=== PATIENT | female | born 1980 | race Caucasian/White ===

== ENCOUNTER 2020-03-10 04:57 | Inpatient (IN) ==
[2020-03-10] MEDS ORDERED: OXYTOCIN 30 UNITS/500 ML BAG IV PRN ×2 (06:02→07:59)
--- NOTE | 2020-03-10 06:09 | History & Physical Report ---
Date of Service March 10, 2020 Assessment & Plan (1) Rupture of membranes with meconium present: admit, expectant management. pitocin aumentation as needed. fetus category one. (2) Diet controlled gestational diabetes mellitus (GDM), antepartum: check bs q 3 hrs. History of Present Illness Chief Complaint: rom Primary Care Provider: NO PCP Patient is a 39yowf with iup at 40 5/7 weeks who presents to labor and delivery noting gush of fluid and continued leaking since a little after three. Notes the fluid is discolored. Notes some pressure but not uncomfortable. +fm. complicated by diet controlled gdm labs--A+/ab-/ri/rprnr/hepb-/hiv-/gc/ct-/declined genetics/declined cf/sma/ gbs neg/ 28 week gtt was 204. Allergies Allergy/AdvReac Type Severity Reaction Status Date / Time No Known Allergies Allergy Verified 03/05/20 14:37 Home Medications Home Medications Medication Instructions Recorded Confirmed Type [id number] oil 1 tab/day PO DAILY 07/25/19 03/10/20 History docusate sodium 50 mg capsule 50 mg PO DAILY PRN 02/27/20 03/10/20 History Patient History Medical History Encounter for anatomic survey Evaluate anatomy not seen on prior sonogram Varicella Surgical History No pertinent past surgical history Family History Father Heart disease Diabetes Hypertension Hypercholesteremia Social History Preferred Language: Upper Sorbian Communication Ability: Effective Route Process Administrator Required: No Beliefs That Will Affect Care: None marital status: marital status details: Jennifer Lorenz (39) [phone] Current Living Situation: Spouse Current Living Situation Comment: apartment with current occupational status: 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[employer] Other Information That Helps Us Care for You: No Feels Safe at Home: Yes Safety Concerns: Feels Safe At This Time Smoking Status: Never smoker Hx Alcohol Use: No Hx Substance Use: No 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 History noncontributory Review of Systems All systems reviewed & are unremarkable except as noted in HPI & below Physical Exam Constitutional: WD/WN, vitals as above Gastrointestinal (Abdomen): soft, gravid, nt Psychiatric: A+Ox3, euthymic affect Genitourinary: grossly ruptured with green meconium stained fluid cx--/-2 toco--q5min efm--135 with mod variability, accels to 150s, no decels Results & Data Vital Signs (Past 12 Hours) Vital Signs Temp Pulse Resp BP 03/10/20 05:54 93 H 146/97 H 03/10/20 05:29 36.7 C 18 03/10/20 05:14 106 H 134/94 Code Status & VTE Plan VTE Prophylaxis Plan VTE Prophylaxis will be ordered: No Coding Level of Care Code None Diagnoses Rupture of membranes with meconium present O77.0 Diet controlled gestational diabetes mellitus (GDM), antepartum O24.410
[2020-03-10 06:19] LABS: Hematocrit (blood only) 39.1 % (37-47); Hemoglobin 12.7 g/dL (12.0-16.0); Mean Corpuscular Hemoglobin 28.2 pg (25-34); Mean Corpuscular Volume 86.7 fL (80-100); Mean Platelet Volume 12.2 fL (7.4-10.4); Nucleated RBC # (auto) 0.39 K/uL (0-0); Platelet Count 277 K/uL (130-400); RDW Coefficient of Variation 15.6 % (11.5-14.5); RDW Standard Deviation 48.8 fL (36.4-46.3); Red Blood Count 4.51 M/uL (4.2-5.4); White Blood Count 7.67 K/uL (4.8-10.8)
[2020-03-10 06:24] LABS: Mean Corpuscular Hgb Conc 32.5 g/dL (32-36)
[2020-03-10 06:35] LABS: Albumin Level 2.3 gm/dl (3.4-5.0); Calcium 8.7 mg/dl (8.5-10.1); Creatinine Clr Calc Pharmacy 78.8 ml/min; Est GFR (African American) 64.9; Potassium 4.1 mmol/L (3.5-5.1)
[2020-03-10 06:38] LABS: Albumin Globulin Ratio 0.5 (0.9-2); Bilirubin,Total 0.5 mg/dl (0.2-1); Globulin 4.2 gm/dl (2.5-4.0); Total Protein 6.5 gm/dl (6.4-8.2)
[2020-03-10] MEDS: LACTATED RINGER'S 1,000 ML IV PRN ×2 (06:45→13:38)
[2020-03-10] MEDS ORDERED: MAG SULFATE 4GM BOLUS FROM BAG IV ONE (06:47)
--- NOTE | 2020-03-10 06:47 | Labor Progress Brief Note ---
Date of Service March 10, 2020 Subjective patient notes contractions still describing pressure. no [place]/vision garvin ges/n/v/increased edema/ruq pain Assessment & Plan (1) Preeclampsia: lfts and pond tender elevated and patient's pressure slightly elevated. This is most likely consistent with preeclampsia. discussed the situation with the patient who expresses understanding. plan mag prophylaxis. Physical Exam Constitutional: WD/WN, vitals as above Cardiovascular: Extremities: + edema (trace); no calf tenderness Gastrointestinal (Abdomen): no ruq pain Neurologic: DTRs +1/2, no clonus Psychiatric: A+Ox3, euthymic affect Results & Data Vital Signs (Past 12 Hours) Vital Signs Temp Pulse Resp BP 03/10/20 05:54 93 H 146/97 H 03/10/20 05:29 36.7 C 18 03/10/20 05:14 106 H 134/94 Coding Level of Care Code None Diagnoses Preeclampsia O14.90
[2020-03-10] MEDS: MAGNESIUM SULFATE / WTR 40 GM/1,000 ML BAG IV SCH (07:11)
--- NOTE | 2020-03-10 08:16 | Labor Progress Brief Note ---
Date of Service March 10, 2020 Subjective Notes some contractions more painful. Did well with mag bolus. Assessment & Plan (1) Preeclampsia: continue mag, stable (2) Rupture of membranes with meconium present: Recommend she start pitocin for augmentation, they are agreeable. fetus categroy one. Physical Exam Constitutional: WD/WN, vitals as above Psychiatric: A+Ox3, euthymic affect Genitourinary: cx--deferred toco--q2-4min efm--140s with mod variability, small accels, no decels copious mec stained fluid. Results & Data Vital Signs (Past 12 Hours) Vital Signs Temp Pulse Resp BP 03/10/20 08:10 101 H 134/91 03/10/20 07:55 98 H 135/94 03/10/20 07:41 100 H 135/93 03/10/20 07:17 100 H 135/96 03/10/20 05:54 93 H 146/97 H 03/10/20 05:29 36.7 C 18 03/10/20 05:14 106 H 134/94 Coding Level of Care Code None Diagnoses Preeclampsia O14.90 Rupture of membranes with meconium present O77.0
[2020-03-10] MEDS ORDERED: ePHEDrine sulfate 50 MG/ML AMP ONE (12:49)
[2020-03-10] MEDS ORDERED: BUPIVACAINE 0.25% 30 ML VIAL ONE (12:49)
[2020-03-10] MEDS ORDERED: fentaNYL 2MCG/ML ROPIV 1.25MG/ML 100 ML BAG EPI ONE (12:50)
[2020-03-10] MEDS ORDERED: fentaNYL citrate 100 MCG/2 ML VIAL ONE (12:50)
--- NOTE | 2020-03-10 13:00 | Anesthesiology Consultation ---
Date of Service March 10, 2020 Assessment & Plan (1) Encounter for pre-operative examination: Chart Review Chart Review: Acceptable Risk for Labor Epidural History Height/Weight Height: 5 ft 8 in Weight: 103.419 kg Allergies Allergy/AdvReac Type Severity Reaction Status Date / Time No Known Allergies Allergy Verified 03/05/20 14:37 Medications Home Medications Medication Instructions Recorded Confirmed Last Taken [id number] oil 1 tab/day PO DAILY 07/25/19 03/10/20 03/09/20 08:00 docusate sodium 50 mg capsule 50 mg PO DAILY PRN 02/27/20 03/10/20 Unknown Active Medications Generic Name Dose Route Start Last Admin Trade Name Freq PRN Reason Stop Dose Admin Lactated Ringer's 1,000 mls @ 125 mls/hr 03/10/20 06:02 03/10/20 12:44 Lr IV 03/12/20 06:01 999 mls/hr .Q8H PRN Infusion L&D Protocol Protocol Magnesium Sulfate 40 gm in 1,000 mls @ 50 mls/hr 03/10/20 07:00 03/10/20 07:40 Magnesium Sulfate / Wtr IV 04/09/20 06:59 50 mls/hr .Q20H SRINIVAS Infusion Oxytocin 30 units in 500 mls @ 10 mls/hr 03/10/20 07:59 03/10/20 12:09 Pitocin IV 03/12/20 07:58 0.6 units/hr .Q24H PRN 10 mls/hr Labor Induction/Augmentation Titration Protocol 0.6 UNITS/HR Past Medical History Medical History (Updated 03/10/20 @ 13:00 by Ziyad Lynn MD) Diet controlled gestational diabetes mellitus (GDM), antepartum Encounter for anatomic survey Evaluate anatomy not seen on prior sonogram Varicella Past Family History Family History Father Heart disease Diabetes Hypertension Hypercholesteremia Past Surgical History Surgical History No pertinent past surgical history Social History Smoking Status: Never smoker Hx Alcohol Use: No Hx Substance Use: No Physical Exam Vital Signs Last Vital Signs Temp 36.3 C L 03/10/20 09:20 Pulse 102 H 03/10/20 12:44 Resp 20 03/10/20 09:20 BP 133/85 03/10/20 12:44 Testing Laboratory Results 03/10/20 06:08 03/10/20 06:08 03/10/20 03/10/20 03/10/20 12:26 09:35 06:33 POC Glucose 73 77 72
[2020-03-10] MEDS ORDERED: ONDANSETRON INJ 2 MG/ML 2 ML VIAL IV PRN (13:36)
[2020-03-10] MEDS ORDERED: NALOXONE HCL 0.4 MG/1 ML VIAL/CARP IV PRN (13:36)
[2020-03-10] MEDS ORDERED: NALOXONE HCL 1 MG in SODIUM CHLORIDE 0.9% 1000ML 1,000 ML IV PRN (13:36)
[2020-03-10] MEDS ORDERED: fentaNYL 2MCG/ML ROPIV 1.25MG/ML 100 ML BAG EPI PRN (13:36)
[2020-03-10] MEDS ORDERED: ePHEDrine sulfate 50 MG/ML AMP IV PRN (13:36)
--- NOTE | 2020-03-10 14:40 | Labor Progress Brief Note ---
Date of Service March 10, 2020 Subjective comfortable after epidural Assessment & Plan (1) Preeclampsia: continue mag, no s/s or worsening disease, pressures good (2) Rupture of membranes with meconium present: continue pitocin. fetus category 2 with variables but reassuring. Physical Exam Constitutional: WD/WN, vitals as above Psychiatric: A+Ox3, euthymic affect Genitourinary: cx--4/90/-2 copious green/brown mec toco--q2-5, pit at 5, had to turn off for a bit after epidural efm--145 with mod variability, small variables with some contractions. Results & Data Vital Signs (Past 12 Hours) Vital Signs Temp Pulse Resp BP Pulse Ox 03/10/20 14:35 114 H 97 03/10/20 14:33 111 H 133/85 03/10/20 14:30 111 H 94 03/10/20 14:26 107 H 94 03/10/20 14:25 109 H 94 03/10/20 14:21 110 H 94 03/10/20 14:20 114 H 98 03/10/20 14:17 112 H 141/68 H 03/10/20 14:15 112 H 95 03/10/20 14:10 110 H 97 03/10/20 14:05 117 H 99 03/10/20 14:01 118 H 135/62 03/10/20 14:00 119 H 100 03/10/20 13:56 116 H 130/59 L 03/10/20 13:55 117 H 100 03/10/20 13:51 122 H 141/67 H 03/10/20 13:50 124 H 100 03/10/20 13:45 126 H 100 03/10/20 13:44 126 H 136/68 03/10/20 13:41 126 H 133/66 03/10/20 13:40 123 H 98 03/10/20 13:38 116 H 133/66 03/10/20 13:35 93 H 88/54 L 96 03/10/20 13:32 112 H 84/52 L 03/10/20 13:30 96 H 96 03/10/20 13:29 96 H 83/44 L 03/10/20 13:25 109 H 98 03/10/20 13:20 100 H 100 03/10/20 13:15 103 H 100 03/10/20 13:10 103 H 97 03/10/20 13:06 18 03/10/20 12:44 102 H 133/85 03/10/20 11:45 95 H 155/97 H 03/10/20 10:44 93 H 142/93 H 03/10/20 09:46 100 H 137/93 03/10/20 09:20 36.3 C L 20 03/10/20 08:40 104 H 140/94 03/10/20 08:26 98 H 133/89 03/10/20 08:10 101 H 134/91 03/10/20 07:55 98 H 135/94 03/10/20 07:41 100 H 135/93 03/10/20 07:20 20 03/10/20 07:17 36.9 C 100 H 20 135/96 03/10/20 05:54 93 H 146/97 H 03/10/20 05:29 36.7 C 18 03/10/20 05:14 106 H 134/94 Coding Level of Care Code None Diagnoses Preeclampsia O14.90 Rupture of membranes with meconium present O77.0
--- NOTE | 2020-03-10 18:38 | Labor Progress Brief Note ---
Date of Service March 10, 2020 Subjective comfortable, tired Assessment & Plan (1) Preeclampsia: stable. Will check a mag level. (2) Rupture of membranes with meconium present: iupc placed, continue pitocin. ctx not adequate. fetus category two. will continue to monitor baby closely. Bloody show noted. Physical Exam Constitutional: WD/WN, vitals as above Psychiatric: A+Ox3, euthymic affect Genitourinary: cx--5/90/-[address] toco--3-5, pit at 16 efm--140s with min to mod variability, early variable with some contractions, had a few late decels that resolved with position change. Results & Data Vital Signs (Past 12 Hours) Vital Signs Temp Pulse Resp BP Pulse Ox 03/10/20 18:32 95 H 139/86 03/10/20 18:30 98 H 97 03/10/20 18:25 99 H 93 03/10/20 18:20 98 H 96 03/10/20 18:17 103 H 147/89 H 03/10/20 18:15 103 H 96 03/10/20 18:10 100 H 95 03/10/20 18:07 103 H 93 03/10/20 18:05 102 H 95 03/10/20 18:02 99 H 142/89 H 03/10/20 18:00 101 H 95 03/10/20 17:55 101 H 94 03/10/20 17:52 97 H 93 03/10/20 17:50 105 H 132/86 94 03/10/20 17:47 102 H 93 03/10/20 17:45 100 H 95 03/10/20 17:40 104 H 97 03/10/20 17:39 101 H 93 03/10/20 17:35 103 H 95 03/10/20 17:32 101 H 133/76 03/10/20 17:30 100 H 94 03/10/20 17:29 103 H 93 03/10/20 17:25 105 H 95 03/10/20 17:21 104 H 93 03/10/20 17:20 104 H 94 03/10/20 17:15 97 H 95 03/10/20 17:10 105 H 96 03/10/20 17:05 107 H 97 03/10/20 17:02 102 H 135/82 03/10/20 17:00 103 H 93 0607 16:55 109 H 94 0620 16:51 108 H 93 06 16:50 105 H 96 03/10/20 16:48 106 H 138/84 03/10/20 16:47 109 H 20 127/84 03/10/20 16:45 107 H 94 0607 16:40 108 H 95 06 16:35 107 H 97 03/10/20 16:32 106 H 20 139/87 03/10/20 16:30 105 H 97 03/10/20 16:25 109 H 98 06 16:20 109 H 98 03/10/20 16:17 106 H 20 141/88 H 03/10/20 16:15 109 H 98 03/10/20 16:10 107 H 97 03/10/20 16:05 102 H 97 03/10/20 16:04 105 H 94 03/10/20 16:02 36.6 C 106 H 18 141/89 H 03/10/20 16:00 102 H 97 03/10/20 15:55 104 H 99 07 15:51 18 03/10/20 15:50 104 H 97 07 15:47 107 H 138/90 03/10/20 15:45 110 H 97 03/10/20 15:40 109 H 97 03/10/20 15:35 108 H 96 03/10/20 15:32 105 H 150/88 H 03/10/20 15:31 108 H 94 07 15:30 108 H 98 03/10/20 15:25 117 H 96 0607 15:20 112 H 97 03/10/20 15:17 109 H 149/80 H 07 15:15 107 H 95 0607 15:10 105 H 95 0607 15:08 109 H 94 07 15:05 91 H 97 06/07 15:02 109 H 136/75 03/10/20 15:00 104 H 93 06/07 14:56 18 06 14:55 106 H 95 06/07 14:50 111 H 95 03/10/20 14:49 110 H 94 03/10/20 14:47 111 H 137/81 03/10/20 14:45 110 H 96 03/10/20 14:43 18 03/10/20 14:42 109 H 94 03/10/20 14:40 114 H 96 03/10/20 14:35 114 H 97 03/10/20 14:33 111 H 133/85 03/10/20 14:30 111 H 18 94 03/10/20 14:26 107 H 94 03/10/20 14:25 109 H 94 03/10/20 14:21 110 H 94 03/10/20 14:20 114 H 98 03/10/20 14:17 112 H 141/68 H 03/10/20 14:15 112 H 95 03/10/20 14:14 20 03/10/20 14:10 110 H 97 03/10/20 14:05 117 H 99 03/10/20 14:01 118 H 135/62 03/10/20 14:00 119 H 100 03/10/20 13:59 20 03/10/20 13:56 116 H 130/59 L 03/10/20 13:55 117 H 100 03/10/20 13:51 122 H 141/67 H 03/10/20 13:50 124 H 100 03/10/20 13:45 126 H 100 03/10/20 13:44 126 H 20 136/68 03/10/20 13:41 126 H 133/66 03/10/20 13:40 123 H 98 03/10/20 13:38 116 H 133/66 03/10/20 13:37 36.6 C 20 03/10/20 13:35 93 H 88/54 L 96 03/10/20 13:32 112 H 84/52 L 03/10/20 13:30 96 H 96 03/10/20 13:29 96 H 83/44 L 03/10/20 13:25 109 H 98 03/10/20 13:20 100 H 100 03/10/20 13:15 103 H 100 03/10/20 13:10 103 H 97 03/10/20 13:06 18 03/10/20 12:44 102 H 133/85 03/10/20 11:45 95 H 155/97 H 03/10/20 11:19 36.6 C 20 06/07/20 10:44 93 H 142/93 H 03/10/20 09:46 100 H 137/93 03/10/20 09:20 36.3 C L 20 03/10/20 08:40 104 H 140/94 03/10/20 08:26 98 H 133/89 03/10/20 08:10 101 H 134/91 03/10/20 07:55 98 H 135/94 03/10/20 07:41 100 H 135/93 03/10/20 07:20 20 03/10/20 07:17 36.9 C 100 H 20 135/96 Coding Level of Care Code None Diagnoses Preeclampsia O14.90 Rupture of membranes with meconium present O77.0
--- NOTE | 2020-03-10 18:39 | Delivery Summary ---
Vaginal Delivery Summary Date of Service March 10, 2020 Vaginal Delivery Summary .vagdels
[2020-03-10] MEDS ORDERED: Nursing to Pharmacy Communication ONE (19:55)
--- NOTE | 2020-03-10 22:18 | Labor Progress Brief Note ---
Date of Service March 10, 2020 Subjective comfortable Assessment & Plan (1) Preeclampsia: stable . Mag level appropriate. (2) Rupture of membranes with meconium present: Intermittently adequate contractions, but making change. Intermittent late but responsive to position change. decreased variability likely secondary to Mag effect. Will continue to watch closely. Physical Exam Constitutional: WD/WN, vitals as above Psychiatric: A+Ox3, euthymic affect Genitourinary: cx--8/100/-1 toco--q3-4 min, pit at 22 efm--145 with min to mod variability, occasional variable with contraction, occasional late that resolves with repositioning. Results & Data Vital Signs (Past 12 Hours) Vital Signs Temp Pulse Resp BP Pulse Ox 03/10/20 22:10 97 H 98 03/10/20 22:05 92 H 97 03/10/20 22:02 95 H 121/70 03/10/20 22:00 99 H 95 03/10/20 21:55 97 H 96 03/10/20 21:50 99 H 97 03/10/20 21:47 95 H 129/76 03/10/20 21:45 97 H 97 03/10/20 21:40 96 H 98 03/10/20 21:35 97 H 97 03/10/20 21:32 99 H 128/74 03/10/20 21:30 96 H 18 95 03/10/20 21:25 98 H 97 03/10/20 21:20 97 H 96 03/10/20 21:17 96 H 130/72 03/10/20 21:15 95 H 96 03/10/20 21:10 94 H 97 03/10/20 21:05 94 H 97 03/10/20 21:03 90 121/67 03/10/20 21:00 102 H 18 96 03/10/20 20:55 96 H 98 03/10/20 20:50 101 H 100 03/10/20 20:47 94 H 144/89 H 03/10/20 20:45 100 H 97 03/10/20 20:40 102 H 98 03/10/20 20:35 103 H 95 03/10/20 20:32 103 H 136/81 03/10/20 20:31 101 H 93 03/10/20 20:30 100 H 94 03/10/20 20:25 99 H 98 03/10/20 20:20 36.6 C 99 H 18 95 03/10/20 20:17 99 H 137/82 03/10/20 20:15 102 H 96 03/10/20 20:10 101 H 98 03/10/20 20:05 101 H 97 03/10/20 20:02 100 H 140/85 03/10/20 20:00 36.6 C 100 H 18 98 03/10/20 19:55 102 H 98 03/10/20 19:50 101 H 98 03/10/20 19:47 97 H 144/87 H 03/10/20 19:45 103 H 98 03/10/20 19:40 103 H 97 03/10/20 19:35 98 H 96 03/10/20 19:33 97 H 135/82 03/10/20 19:30 102 H 97 03/10/20 19:25 95 H 97 03/10/20 19:22 18 03/10/20 19:20 102 H 97 03/10/20 19:18 100 H 144/87 H 03/10/20 19:15 105 H 99 03/10/20 19:10 105 H 98 03/10/20 19:05 103 H 99 03/10/20 19:02 101 H 150/96 H 03/10/20 19:00 104 H 99 03/10/20 18:55 36.5 C 104 H 20 99 03/10/20 18:50 104 H 100 03/10/20 18:47 100 H 142/91 H 03/10/20 18:45 101 H 98 03/10/20 18:40 100 H 97 03/10/20 18:35 103 H 96 03/10/20 18:32 95 H 139/86 03/10/20 18:30 98 H 20 97 03/10/20 18:25 99 H 93 03/10/20 18:20 98 H 96 03/10/20 18:17 103 H 147/89 H 03/10/20 18:15 103 H 96 03/10/20 18:10 100 H 95 03/10/20 18:07 103 H 93 03/10/20 18:05 102 H 95 03/10/20 18:02 99 H 142/89 H 03/10/20 18:00 101 H 95 03/10/20 17:55 101 H 94 0607 17:52 97 H 93 06 17:50 105 H 132/86 94 03/10/20 17:47 102 H 93 06 17:45 100 H 95 06 17:40 104 H 97 06 17:39 101 H 93 03/10/20 17:35 103 H 95 0620 17:32 36.7 C 101 H 18 133/76 03/10/20 17:30 100 H 16 94 03/10/20 17:29 103 H 93 03/10/20 17:25 105 H 95 06 17:21 104 H 93 06 17:20 104 H 94 06 17:15 97 H 95 03/10/20 17:10 105 H 96 03/10/20 17:05 107 H 97 03/10/20 17:02 102 H 135/82 03/10/20 17:00 103 H 93 03/10/20 16:55 109 H 94 03/10/20 16:51 108 H 93 03/10/20 16:50 105 H 96 03/10/20 16:48 106 H 138/84 03/10/20 16:47 109 H 20 127/84 03/10/20 16:45 107 H 94 03/10/20 16:40 108 H 95 03/10/20 16:35 107 H 97 03/10/20 16:32 106 H 20 139/87 03/10/20 16:30 105 H 20 97 03/10/20 16:25 109 H 98 07 16:20 109 H 98 03/10/20 16:17 106 H 20 141/88 H 07 16:15 109 H 98 03/10/20 16:10 107 H 97 0607 16:05 102 H 97 07 16:04 105 H 94 0607 16:02 36.6 C 106 H 18 141/89 H 07 16:00 102 H 97 03/10/20 15:55 104 H 99 0720 15:51 18 060720 15:50 104 H 97 0607 15:47 107 H 138/90 03/10/20 15:45 110 H 97 03/10/20 15:40 109 H 97 03/10/20 15:35 108 H 96 03/10/20 15:32 36.9 C 105 H 20 150/88 H 03/10/20 15:31 108 H 94 03/10/20 15:30 108 H 98 03/10/20 15:25 117 H 96 03/10/20 15:20 112 H 97 03/10/20 15:17 109 H 149/80 H 03/10/20 15:15 107 H 95 03/10/20 15:10 105 H 95 03/10/20 15:08 109 H 94 03/10/20 15:05 91 H 97 03/10/20 15:02 109 H 136/75 03/10/20 15:00 104 H 93 03/10/20 14:56 18 03/10/20 14:55 106 H 95 03/10/20 14:50 111 H 95 03/10/20 14:49 110 H 94 03/10/20 14:47 111 H 137/81 03/10/20 14:45 110 H 96 03/10/20 14:43 18 03/10/20 14:42 109 H 94 03/10/20 14:40 114 H 96 03/10/20 14:35 114 H 97 03/10/20 14:33 111 H 133/85 03/10/20 14:30 111 H 18 94 03/10/20 14:26 107 H 94 03/10/20 14:25 109 H 94 03/10/20 14:21 110 H 94 03/10/20 14:20 114 H 98 03/10/20 14:17 112 H 141/68 H 03/10/20 14:15 112 H 95 03/10/20 14:14 20 03/10/20 14:10 110 H 97 03/10/20 14:05 117 H 99 03/10/20 14:01 118 H 135/62 03/10/20 14:00 119 H 100 03/10/20 13:59 20 03/10/20 13:56 116 H 130/59 L 03/10/20 13:55 117 H 100 03/10/20 13:51 122 H 141/67 H 03/10/20 13:50 124 H 100 03/10/20 13:45 126 H 100 03/10/20 13:44 126 H 20 136/68 06/07/20 13:41 126 H 133/66 03/10/20 13:40 123 H 98 03/10/20 13:38 116 H 133/66 03/10/20 13:37 36.6 C 20 03/10/20 13:35 93 H 88/54 L 96 03/10/20 13:32 112 H 84/52 L 03/10/20 13:30 96 H 96 03/10/20 13:29 96 H 83/44 L 03/10/20 13:25 109 H 98 03/10/20 13:20 100 H 100 03/10/20 13:15 103 H 100 03/10/20 13:10 103 H 97 03/10/20 13:06 18 03/10/20 12:44 102 H 133/85 03/10/20 11:45 95 H 155/97 H 03/10/20 11:19 36.6 C 20 03/10/20 10:44 93 H 142/93 H Coding Level of Care Code None Diagnoses Preeclampsia O14.90 Rupture of membranes with meconium present O77.0
--- NOTE | 2020-03-10 22:41 | Labor Progress Brief Note ---
Date of Service March 10, 2020 Subjective comfortable Assessment & Plan (1) Rupture of membranes with meconium present: pit now off and oxygen on. Continue position changing. If cannot get improvement in fht, plan to move toward c/s. Explained the situation to the patient and her and explained my thinking. They express understanding. Physical Exam Constitutional: WD/WN, vitals as above Psychiatric: A+Ox3, euthymic affect Genitourinary: toco--q4-5min efm--140 with min variability, more persistent lates Results & Data Vital Signs (Past 12 Hours) Vital Signs Temp Pulse Resp BP Pulse Ox 03/10/20 22:35 91 H 100 03/10/20 22:32 93 H 134/78 03/10/20 22:30 92 H 96 03/10/20 22:25 95 H 98 03/10/20 22:20 95 H 97 03/10/20 22:17 99 H 123/71 03/10/20 22:15 94 H 98 03/10/20 22:10 97 H 98 03/10/20 22:05 92 H 97 03/10/20 22:02 95 H 121/70 03/10/20 22:00 36.5 C 99 H 18 95 03/10/20 21:55 97 H 96 03/10/20 21:50 99 H 97 03/10/20 21:47 95 H 129/76 03/10/20 21:45 97 H 97 03/10/20 21:40 96 H 98 03/10/20 21:35 97 H 97 03/10/20 21:32 99 H 128/74 03/10/20 21:30 96 H 18 95 03/10/20 21:25 98 H 97 03/10/20 21:20 97 H 96 03/10/20 21:17 96 H 130/72 03/10/20 21:15 95 H 96 03/10/20 21:10 94 H 97 03/10/20 21:05 94 H 97 03/10/20 21:03 90 121/67 03/10/20 21:00 102 H 18 96 03/10/20 20:55 96 H 98 03/10/20 20:50 101 H 100 03/10/20 20:47 94 H 144/89 H 03/10/20 20:45 100 H 97 03/10/20 20:40 102 H 98 03/10/20 20:35 103 H 95 03/10/20 20:32 103 H 136/81 03/10/20 20:31 101 H 93 03/10/20 20:30 100 H 94 03/10/20 20:25 99 H 98 03/10/20 20:20 36.6 C 99 H 18 95 03/10/20 20:17 99 H 137/82 03/10/20 20:15 102 H 96 03/10/20 20:10 101 H 98 03/10/20 20:05 101 H 97 03/10/20 20:02 100 H 140/85 03/10/20 20:00 36.6 C 100 H 18 98 03/10/20 19:55 102 H 98 03/10/20 19:50 101 H 98 03/10/20 19:47 97 H 144/87 H 03/10/20 19:45 103 H 98 03/10/20 19:40 103 H 97 03/10/20 19:35 98 H 96 03/10/20 19:33 97 H 135/82 03/10/20 19:30 102 H 97 03/10/20 19:25 95 H 97 03/10/20 19:22 18 03/10/20 19:20 102 H 97 03/10/20 19:18 100 H 144/87 H 03/10/20 19:15 105 H 99 03/10/20 19:10 105 H 98 03/10/20 19:05 103 H 99 03/10/20 19:02 101 H 150/96 H 03/10/20 19:00 104 H 99 03/10/20 18:55 36.5 C 104 H 20 99 03/10/20 18:50 104 H 100 03/10/20 18:47 100 H 142/91 H 03/10/20 18:45 101 H 98 03/10/20 18:40 100 H 97 03/10/20 18:35 103 H 96 03/10/20 18:32 95 H 139/86 03/10/20 18:30 98 H 20 97 03/10/20 18:25 99 H 93 03/10/20 18:20 98 H 96 03/10/20 18:17 103 H 147/89 H 03/10/20 18:15 103 H 96 03/10/20 18:10 100 H 95 06 18:07 103 H 93 03/10/20 18:05 102 H 95 03/10/20 18:02 99 H 142/89 H 03/10/20 18:00 101 H 95 06 17:55 101 H 94 03/10/20 17:52 97 H 93 03/10/20 17:50 105 H 132/86 94 03/10/20 17:47 102 H 93 03/10/20 17:45 100 H 95 03/10/20 17:40 104 H 97 03/10/20 17:39 101 H 93 03/10/20 17:35 103 H 95 03/10/20 17:32 36.7 C 101 H 18 133/76 03/10/20 17:30 100 H 16 94 03/10/20 17:29 103 H 93 03/10/20 17:25 105 H 95 03/10/20 17:21 104 H 93 03/10/20 17:20 104 H 94 03/10/20 17:15 97 H 95 03/10/20 17:10 105 H 96 03/10/20 17:05 107 H 97 03/10/20 17:02 102 H 135/82 03/10/20 17:00 103 H 93 03/10/20 16:55 109 H 94 03/10/20 16:51 108 H 93 03/10/20 16:50 105 H 96 03/10/20 16:48 106 H 138/84 03/10/20 16:47 109 H 20 127/84 03/10/20 16:45 107 H 94 03/10/20 16:40 108 H 95 03/10/20 16:35 107 H 97 03/10/20 16:32 106 H 20 139/87 03/10/20 16:30 105 H 20 97 03/10/20 16:25 109 H 98 03/10/20 16:20 109 H 98 03/10/20 16:17 106 H 20 141/88 H 03/10/20 16:15 109 H 98 03/10/20 16:10 107 H 97 03/10/20 16:05 102 H 97 03/10/20 16:04 105 H 94 03/10/20 16:02 36.6 C 106 H 18 141/89 H 03/10/20 16:00 102 H 97 03/10/20 15:55 104 H 99 03/10/20 15:51 18 03/10/20 15:50 104 H 97 03/10/20 15:47 107 H 138/90 03/10/20 15:45 110 H 97 03/10/20 15:40 109 H 97 03/10/20 15:35 108 H 96 03/10/20 15:32 36.9 C 105 H 20 150/88 H 03/10/20 15:31 108 H 94 03/10/20 15:30 108 H 98 03/10/20 15:25 117 H 96 03/10/20 15:20 112 H 97 03/10/20 15:17 109 H 149/80 H 03/10/20 15:15 107 H 95 03/10/20 15:10 105 H 95 03/10/20 15:08 109 H 94 03/10/20 15:05 91 H 97 03/10/20 15:02 109 H 136/75 03/10/20 15:00 104 H 93 03/10/20 14:56 18 03/10/20 14:55 106 H 95 03/10/20 14:50 111 H 95 03/10/20 14:49 110 H 94 03/10/20 14:47 111 H 137/81 03/10/20 14:45 110 H 96 03/10/20 14:43 18 03/10/20 14:42 109 H 94 03/10/20 14:40 114 H 96 03/10/20 14:35 114 H 97 03/10/20 14:33 111 H 133/85 03/10/20 14:30 111 H 18 94 03/10/20 14:26 107 H 94 03/10/20 14:25 109 H 94 03/10/20 14:21 110 H 94 03/10/20 14:20 114 H 98 03/10/20 14:17 112 H 141/68 H 03/10/20 14:15 112 H 95 03/10/20 14:14 20 03/10/20 14:10 110 H 97 03/10/20 14:05 117 H 99 03/10/20 14:01 118 H 135/62 03/10/20 14:00 119 H 100 03/10/20 13:59 20 03/10/20 13:56 116 H 130/59 L 03/10/20 13:55 117 H 100 03/10/20 13:51 122 H 141/67 H 03/10/20 13:50 124 H 100 03/10/20 13:45 126 H 100 03/10/20 13:44 126 H 20 136/68 03/10/20 13:41 126 H 133/66 03/10/20 13:40 123 H 98 03/10/20 13:38 116 H 133/66 03/10/20 13:37 36.6 C 20 03/10/20 13:35 93 H 88/54 L 96 03/10/20 13:32 112 H 84/52 L 03/10/20 13:30 96 H 96 03/10/20 13:29 96 H 83/44 L 03/10/20 13:25 109 H 98 03/10/20 13:20 100 H 100 03/10/20 13:15 103 H 100 03/10/20 13:10 103 H 97 03/10/20 13:06 18 03/10/20 12:44 102 H 133/85 03/10/20 11:45 95 H 155/97 H 03/10/20 11:19 36.6 C 20 03/10/20 10:44 93 H 142/93 H Coding Level of Care Code None Diagnoses Rupture of membranes with meconium present O77.0
--- NOTE | 2020-03-10 23:24 | Labor Progress Brief Note ---
Date of Service March 10, 2020 Subjective comfortable Assessment & Plan (1) Rupture of membranes with meconium present: Strip improved with pit off. Unfortunately ctx have spaced and not as powerful. Will need to increase pit again to get desired effect of contractions. I don't think the baby is going to tolerate this and I have recommended proceeding with c/s at this time. However, could try to restart pit at 0 and slowly increase and see how it goes. When patient vomited, there was a decel after this x 2. I am suspicious that with pushing , this is what the baby will do and will not tolerate pushing. As a primip, don't know how long she may push. station has not progressed beyond -1 station. They are considering now. Alot of the minimal variability likely is secondary to mag effect. Physical Exam Constitutional: WD/WN, vitals as above Psychiatric: A+Ox3, euthymic affect Genitourinary: cx--unchanged toco--q5-6min, pit off efm--145 wtih min variability, no accels, variables with some contractions, lates have resolved. Results & Data Vital Signs (Past 12 Hours) Vital Signs Temp Pulse Resp BP Pulse Ox 03/10/20 23:17 96 H 143/85 H 03/10/20 23:15 97 H 100 03/10/20 23:10 96 H 100 03/10/20 23:05 95 H 100 03/10/20 23:03 95 H 141/81 H 03/10/20 23:00 97 H 18 99 03/10/20 22:55 85 100 03/10/20 22:50 87 100 03/10/20 22:47 93 H 116/68 03/10/20 22:45 94 H 100 03/10/20 22:40 90 100 03/10/20 22:35 91 H 100 03/10/20 22:32 93 H 134/78 03/10/20 22:30 92 H 18 96 03/10/20 22:25 95 H 98 03/10/20 22:20 95 H 97 03/10/20 22:17 99 H 123/71 03/10/20 22:15 94 H 98 03/10/20 22:10 97 H 98 03/10/20 22:05 92 H 97 03/10/20 22:02 95 H 121/70 03/10/20 22:00 36.5 C 99 H 18 95 03/10/20 21:55 97 H 96 03/10/20 21:50 99 H 97 03/10/20 21:47 95 H 129/76 03/10/20 21:45 97 H 97 03/10/20 21:40 96 H 98 03/10/20 21:35 97 H 97 03/10/20 21:32 99 H 128/74 03/10/20 21:30 96 H 18 95 03/10/20 21:25 98 H 97 03/10/20 21:20 97 H 96 03/10/20 21:17 96 H 130/72 03/10/20 21:15 95 H 96 03/10/20 21:10 94 H 97 03/10/20 21:05 94 H 97 03/10/20 21:03 90 121/67 03/10/20 21:00 102 H 18 96 03/10/20 20:55 96 H 98 03/10/20 20:50 101 H 100 03/10/20 20:47 94 H 144/89 H 03/10/20 20:45 100 H 97 03/10/20 20:40 102 H 98 03/10/20 20:35 103 H 95 03/10/20 20:32 103 H 136/81 03/10/20 20:31 101 H 93 03/10/20 20:30 100 H 94 03/10/20 20:25 99 H 98 03/10/20 20:20 36.6 C 99 H 18 95 03/10/20 20:17 99 H 137/82 03/10/20 20:15 102 H 96 03/10/20 20:10 101 H 98 03/10/20 20:05 101 H 97 03/10/20 20:02 100 H 140/85 03/10/20 20:00 36.6 C 100 H 18 98 03/10/20 19:55 102 H 98 03/10/20 19:50 101 H 98 03/10/20 19:47 97 H 144/87 H 03/10/20 19:45 103 H 98 03/10/20 19:40 103 H 97 03/10/20 19:35 98 H 96 03/10/20 19:33 97 H 135/82 03/10/20 19:30 102 H 97 03/10/20 19:25 95 H 97 03/10/20 19:22 18 03/10/20 19:20 102 H 97 03/10/20 19:18 100 H 144/87 H 03/10/20 19:15 105 H 99 03/10/20 19:10 105 H 98 03/10/20 19:05 103 H 99 03/10/20 19:02 101 H 150/96 H 03/10/20 19:00 104 H 99 03/10/20 18:55 36.5 C 104 H 20 99 03/10/20 18:50 104 H 100 03/10/20 18:47 100 H 142/91 H 03/10/20 18:45 101 H 98 03/10/20 18:40 100 H 97 03/10/20 18:35 103 H 96 03/10/20 18:32 95 H 139/86 03/10/20 18:30 98 H 20 97 03/10/20 18:25 99 H 93 03/10/20 18:20 98 H 96 03/10/20 18:17 103 H 147/89 H 03/10/20 18:15 103 H 96 03/10/20 18:10 100 H 95 03/10/20 18:07 103 H 93 03/10/20 18:05 102 H 95 03/10/20 18:02 99 H 142/89 H 03/10/20 18:00 101 H 95 03/10/20 17:55 101 H 94 03/10/20 17:52 97 H 93 03/10/20 17:50 105 H 132/86 94 03/10/20 17:47 102 H 93 03/10/20 17:45 100 H 95 03/10/20 17:40 104 H 97 03/10/20 17:39 101 H 93 03/10/20 17:35 103 H 95 03/10/20 17:32 36.7 C 101 H 18 133/76 03/10/20 17:30 100 H 16 94 03/10/20 17:29 103 H 93 03/10/20 17:25 105 H 95 03/10/20 17:21 104 H 93 03/10/20 17:20 104 H 94 03/10/20 17:15 97 H 95 03/10/20 17:10 105 H 96 03/10/20 17:05 107 H 97 03/10/20 17:02 102 H 135/82 03/10/20 17:00 103 H 93 0607 16:55 109 H 94 03/10/20 16:51 108 H 93 03/10/20 16:50 105 H 96 03/10/20 16:48 106 H 138/84 03/10/20 16:47 109 H 20 127/84 03/10/20 16:45 107 H 94 03/10/20 16:40 108 H 95 03/10/20 16:35 107 H 97 03/10/20 16:32 106 H 20 139/87 03/10/20 16:30 105 H 20 97 03/10/20 16:25 109 H 98 03/10/20 16:20 109 H 98 03/10/20 16:17 106 H 20 141/88 H 03/10/20 16:15 109 H 98 03/10/20 16:10 107 H 97 03/10/20 16:05 102 H 97 03/10/20 16:04 105 H 94 03/10/20 16:02 36.6 C 106 H 18 141/89 H 03/10/20 16:00 102 H 97 03/10/20 15:55 104 H 99 03/10/20 15:51 18 03/10/20 15:50 104 H 97 03/10/20 15:47 107 H 138/90 03/10/20 15:45 110 H 97 03/10/20 15:40 109 H 97 03/10/20 15:35 108 H 96 03/10/20 15:32 36.9 C 105 H 20 150/88 H 03/10/20 15:31 108 H 94 03/10/20 15:30 108 H 98 03/10/20 15:25 117 H 96 03/10/20 15:20 112 H 97 03/10/20 15:17 109 H 149/80 H 03/10/20 15:15 107 H 95 03/10/20 15:10 105 H 95 03/10/20 15:08 109 H 94 03/10/20 15:05 91 H 97 03/10/20 15:02 109 H 136/75 03/10/20 15:00 104 H 93 0607 14:56 18 03/10/20 14:55 106 H 95 06/07/20 14:50 111 H 95 03/10/20 14:49 110 H 94 03/10/20 14:47 111 H 137/81 03/10/20 14:45 110 H 96 03/10/20 14:43 18 03/10/20 14:42 109 H 94 03/10/20 14:40 114 H 96 03/10/20 14:35 114 H 97 03/10/20 14:33 111 H 133/85 03/10/20 14:30 111 H 18 94 03/10/20 14:26 107 H 94 03/10/20 14:25 109 H 94 03/10/20 14:21 110 H 94 03/10/20 14:20 114 H 98 03/10/20 14:17 112 H 141/68 H 03/10/20 14:15 112 H 95 03/10/20 14:14 20 03/10/20 14:10 110 H 97 03/10/20 14:05 117 H 99 03/10/20 14:01 118 H 135/62 03/10/20 14:00 119 H 100 03/10/20 13:59 20 03/10/20 13:56 116 H 130/59 L 03/10/20 13:55 117 H 100 03/10/20 13:51 122 H 141/67 H 03/10/20 13:50 124 H 100 03/10/20 13:45 126 H 100 03/10/20 13:44 126 H 20 136/68 03/10/20 13:41 126 H 133/66 03/10/20 13:40 123 H 98 03/10/20 13:38 116 H 133/66 03/10/20 13:37 36.6 C 20 03/10/20 13:35 93 H 88/54 L 96 03/10/20 13:32 112 H 84/52 L 03/10/20 13:30 96 H 96 03/10/20 13:29 96 H 83/44 L 03/10/20 13:25 109 H 98 03/10/20 13:20 100 H 100 03/10/20 13:15 103 H 100 03/10/20 13:10 103 H 97 03/10/20 13:06 18 03/10/20 12:44 102 H 133/85 03/10/20 11:45 95 H 155/97 H Coding Level of Care Code None Diagnoses Rupture of membranes with meconium present O77.0
[2020-03-10] MEDS ORDERED: miSOPROStoL 200 MCG TAB ONE (23:42)
[2020-03-10] MEDS ORDERED: CARBOPROST TROMETHAMINE 250 MCG/ML AMPUL ONE (23:42)
--- NOTE | 2020-03-10 23:43 | Communication Note ---
Date of Service: March 10, 2020 After discussion , they have agreed to proceed wt c/s. Consent form reviewed and signed.
[2020-03-11] MEDS ORDERED: CEFAZOLIN 3000MG 65 ML IV ONE
[2020-03-11] MEDS ORDERED: LIDOCAINE/EPINEPHRINE 2% 1:200,000 20 ML SDV ONE
[2020-03-11] MEDS ORDERED: CITRIC ACID/SODIUM CITRATE 15 ML UDC PO SCH
[2020-03-11] MEDS ORDERED: OXYTOCIN 10 UNITS/ML VIAL ONE ×3 (00:54→01:17)
[2020-03-11] MEDS ORDERED: ONDANSETRON INJ 2 MG/ML 2 ML VIAL ONE (00:54)
[2020-03-11] MEDS ORDERED: ePHEDrine sulfate 50 MG/ML AMP ONE (00:54)
[2020-03-11] MEDS ORDERED: PHENYLEPHRINE 100MCG/ML 5ML SYR ONE (00:54)
[2020-03-11] MEDS ORDERED: MoRPHine SULFATE PF 1 MG/ML 10 ML AMP/VIAL ONE (00:55)
[2020-03-11] MEDS ORDERED: CARBOPROST TROMETHAMINE 250 MCG/ML AMPUL IM ONE (00:55)
--- NOTE | 2020-03-11 01:19 | Operative Report ---
[facility] Post Operative Report Pre & Post Diagnosis Operation Date: 03/10/20 23:50 Pre-Op Diagnosis: 1. at 40.6 weeks 2. Thick meconium fluid 3. Non reassuring heart tones Post-Op Diagnosis: 1. Same as preop 2. Left peritubal cyst I identified the patient and participated in the time-out.: Yes Procedure Operation Date: 03/10/20 23:50 Actual Procedures p Primary Lower Transverse Section in LD Drainage of left peritubal cyst - Nasra Hernandez MD, FACOG Surgeon Nasra Hernandez MD, FACOG Energy Economist Amarilis Munoz RN Estimated Blood Loss 600 Findings Consistent with Post-Op Diagnosis Specimens placenta Description of Procedure The patient was taken to the operating room where she was identified verbally a nd by yumiko. She was transferred to the operating table. she was then placed in the supine position with a leftward tilt. A Rosales catheter was in place. The epidural was dosed. The patient was prepped and draped in a normal standard fashion. The anesthetic was tested and found to be adequate. A time- out was held, identifying correct patient, procedure, positioning and preoperative antibiotics. There were no concerns. A Pfannenstiel skin incision was made with a knife and taken down to the underlying layer of fascia with the knife and Bovie electocautery. Bleeding was attended to with Bovie cautery. The fascia was incised in the midline with the knife and taken out laterally with scissors. the superior edge of the fascial incision was grasped, elevated and the underlying layer of rectus muscle was taken off bluntly and with scissors. In a similar fashion, the inferior edge of the fascial incision was grasped, elevated and the underlying layer of rectus muscle was taken off bluntly and with scissors. The muscles were bluntly in the midline. The peritoneum was entered bluntly. The incision was then stretched. The bladder blade was placed. The vesicouterine peritoneum was identified, entered with scissors and taken out laterally with scissors. The bladder flap was created digitally A hysterotomy incision was scored with a knife and the incision was stretched cephalad and caudad with the silo operator's fingers. The operators hand was placed into the incision and the head was delivered atraumtically. There was a nuchal cord times two. The nose and mouth were bulb suctioned. the rest of the infant was then delivered without difficulty. There was also a body cord. The nose and mouth were again bulb suctioned. The cord was clamped and cut and the was then handed off to the awaiting relocation specialist for drying and attention. Cord blood and segment were obtained. The placenta was manually extracted. the uterus was exteriorized and cleared of all clot and debris with moistened laparotomy sponges. The hysterotomy incision was repaired in two layers, the first in a running locked layer, the second in an imbricating layer. Hemostasis was noted to be good. Posterior cul-de-sac was irrigated and cleared of all clot and debris. A 2cm peritubal cyst was noted on the left and was ruptured with cautery and drained. The hysterotomy incision was again inspected and found to be hemostatic. The uterus was reinteriorized. Hysterotomy incision was again inspected and found to be hemostatic. Rectus muscles were reapproximated with several interrupted stitches of 0 Vicryl. The fascia was then reapproximated with 0 Vicryl starting at the edges and meeting in the midline. The subcuticular tissues were copiously irrigated and bleeding was attended to with cautery. The subcuticular fat was reapproximated with 2-0 plain gut suture. The skin was then closed with 4-0 Vicryl in a subcuticular fashion. All sponge, lap and needle counts were correct x 2. The patient was taken to the recovery room in stable condition. I attest to the content of the Intraoperative Record and any orders documented therein. Any exceptions are noted below.
--- NOTE | 2020-03-11 01:21 | Anesthesia Procedure Note ---
Date of Service March 11, 2020 Anesthesia Post Epidural Note Vital Signs Vital Signs: Temp Pulse Resp BP Pulse Ox 36.8 C 103 H 18 109/63 100 03/11/20 00:00 03/11/20 01:16 03/11/20 00:05 03/11/20 01:12 03/11/20 01:16 Pain Intensity Abdomen: Pain Intensity: 1 Notes Mental Status: alert / awake / arousable Patient Amnestic to Procedure: No Nausea / Vomiting: adequately controlled Pain: adequately controlled Airway Patency, RR, SpO2: stable & adequate BP & HR: stable & adequate Hydration State: stable & adequate Neuraxial Anesthesia: was administered and sensory block is resolving Anesthetic Complications: no major complications apparent and Pt Satisfied with anesthetic care Epidural: Removed without complications and With tip intact
[2020-03-11] MEDS: MAGNESIUM SULFATE / WTR 40 GM/1,000 ML BAG IV SCH (01:28)
[2020-03-11] MEDS ORDERED: SUPERCREAM 0.870% 15 GM JAR EXT PRN (01:36)
[2020-03-11] MEDS ORDERED: LACTATED RINGER'S 1,000 ML IV SCH (01:36)
[2020-03-11] MEDS ORDERED: DIPHTHERIA/TETANUS/PERTUSSIS 0.5 ML SYR/VIAL IM ONE (01:36)
[2020-03-11] MEDS ORDERED: SENNA 8.6 MG TAB PO PRN (01:36)
[2020-03-11] MEDS ORDERED: MAGNESIUM HYDROXIDE SUSP 30 ML UDC PO PRN (01:36)
[2020-03-11] MEDS ORDERED: BENZOCAINE 20% AER SPR 82.5 GM CAN EXT PRN (01:36)
[2020-03-11] MEDS ORDERED: DiphenhydrAMINE HCL 50 MG/ML VIAL IV PRN ×2 (01:36→02:38)
[2020-03-11] MEDS ORDERED: KETOROLAC 30 MG/ML VIAL IV PRN ×2 (01:36→02:38)
[2020-03-11] MEDS ORDERED: HYDROCORTISONE ACETATE 25 MG SUPP PR PRN (01:36)
[2020-03-11] MEDS ORDERED: OXYTOCIN 20 UNITS in LACTATED RINGER'S 1,000 ML IV SCH (01:45)
[2020-03-11] MEDS ORDERED: MAGNESIUM SULFATE / WTR 40 GM/1,000 ML BAG IV SCH (01:45)
--- NOTE | 2020-03-11 01:49 | Anesthesiology Progress Note ---
Date of Service March 11, 2020 Anesthesia Post Procedure Vital Signs Vital Signs: Temp Pulse Resp BP Pulse Ox 03/11/20 01:46 111 H 97 03/11/20 01:41 110 H 106/57 L 97 03/11/20 01:36 109 H 98 03/11/20 01:31 108 H 123/55 L 97 03/11/20 01:26 104 H 96 03/11/20 01:24 104 H 94 03/11/20 01:21 104 H 112/64 100 03/11/20 01:16 103 H 100 03/11/20 01:12 102 H 109/63 03/11/20 01:11 102 H 100 03/11/20 00:05 98 H 18 99 03/11/20 00:02 99 H 122/81 03/11/20 00:00 36.8 C 101 H 18 97 03/10/20 23:55 95 H 96 03/10/20 23:50 90 99 03/10/20 23:47 95 H 133/78 03/10/20 23:45 96 H 97 03/10/20 23:40 98 H 98 03/10/20 23:35 96 H 100 03/10/20 23:32 100 H 147/86 H 03/10/20 23:30 98 H 18 100 03/10/20 23:25 98 H 99 03/10/20 23:20 88 100 03/10/20 23:17 96 H 143/85 H 03/10/20 23:15 97 H 100 03/10/20 23:10 96 H 100 03/10/20 23:05 95 H 100 03/10/20 23:03 95 H 141/81 H 03/10/20 23:00 97 H 18 99 03/10/20 22:55 85 100 03/10/20 22:50 87 100 03/10/20 22:47 93 H 116/68 03/10/20 22:45 94 H 100 03/10/20 22:40 90 100 03/10/20 22:35 91 H 100 03/10/20 22:32 93 H 134/78 03/10/20 22:30 92 H 18 96 03/10/20 22:25 95 H 98 03/10/20 22:20 95 H 97 03/10/20 22:17 99 H 123/71 03/10/20 22:15 94 H 98 06/07/20 22:10 97 H 98 03/10/20 22:05 92 H 97 03/10/20 22:02 95 H 121/70 03/10/20 22:00 36.5 C 99 H 18 95 03/10/20 21:55 97 H 96 03/10/20 21:50 99 H 97 03/10/20 21:47 95 H 129/76 03/10/20 21:45 97 H 97 03/10/20 21:40 96 H 98 03/10/20 21:35 97 H 97 03/10/20 21:32 99 H 128/74 03/10/20 21:30 96 H 18 95 03/10/20 21:25 98 H 97 03/10/20 21:20 97 H 96 03/10/20 21:17 96 H 130/72 03/10/20 21:15 95 H 96 03/10/20 21:10 94 H 97 03/10/20 21:05 94 H 97 03/10/20 21:03 90 121/67 03/10/20 21:00 102 H 18 96 03/10/20 20:55 96 H 98 03/10/20 20:50 101 H 100 03/10/20 20:47 94 H 144/89 H 03/10/20 20:45 100 H 97 03/10/20 20:40 102 H 98 03/10/20 20:35 103 H 95 03/10/20 20:32 103 H 136/81 03/10/20 20:31 101 H 93 03/10/20 20:30 100 H 94 03/10/20 20:25 99 H 98 03/10/20 20:20 36.6 C 99 H 18 95 03/10/20 20:17 99 H 137/82 03/10/20 20:15 102 H 96 03/10/20 20:10 101 H 98 03/10/20 20:05 101 H 97 03/10/20 20:02 100 H 140/85 03/10/20 20:00 36.6 C 100 H 18 98 03/10/20 19:55 102 H 98 03/10/20 19:50 101 H 98 03/10/20 19:47 97 H 144/87 H 03/10/20 19:45 103 H 98 03/10/20 19:40 103 H 97 06/07/20 19:35 98 H 96 03/10/20 19:33 97 H 135/82 03/10/20 19:30 102 H 97 03/10/20 19:25 95 H 97 03/10/20 19:22 18 03/10/20 19:20 102 H 97 03/10/20 19:18 100 H 144/87 H 03/10/20 19:15 105 H 99 03/10/20 19:10 105 H 98 03/10/20 19:05 103 H 99 03/10/20 19:02 101 H 150/96 H 03/10/20 19:00 104 H 99 03/10/20 18:55 36.5 C 104 H 20 99 03/10/20 18:50 104 H 100 03/10/20 18:47 100 H 142/91 H 03/10/20 18:45 101 H 98 03/10/20 18:40 100 H 97 03/10/20 18:35 103 H 96 03/10/20 18:32 95 H 139/86 03/10/20 18:30 98 H 20 97 03/10/20 18:25 99 H 93 03/10/20 18:20 98 H 96 03/10/20 18:17 103 H 147/89 H 03/10/20 18:15 103 H 96 03/10/20 18:10 100 H 95 03/10/20 18:07 103 H 93 03/10/20 18:05 102 H 95 03/10/20 18:02 99 H 142/89 H 03/10/20 18:00 101 H 95 03/10/20 17:55 101 H 94 03/10/20 17:52 97 H 93 03/10/20 17:50 105 H 132/86 94 03/10/20 17:47 102 H 93 03/10/20 17:45 100 H 95 03/10/20 17:40 104 H 97 03/10/20 17:39 101 H 93 03/10/20 17:35 103 H 95 03/10/20 17:32 36.7 C 101 H 18 133/76 03/10/20 17:30 100 H 16 94 03/10/20 17:29 103 H 93 03/10/20 17:25 105 H 95 03/10/20 17:21 104 H 93 06 17:20 104 H 94 06 17:15 97 H 95 03/10/20 17:10 105 H 96 06 17:05 107 H 97 03/10/20 17:02 102 H 135/82 03/10/20 17:00 103 H 93 03/10/20 16:55 109 H 94 03/10/20 16:51 108 H 93 03/10/20 16:50 105 H 96 03/10/20 16:48 106 H 138/84 03/10/20 16:47 109 H 20 127/84 03/10/20 16:45 107 H 94 03/10/20 16:40 108 H 95 03/10/20 16:35 107 H 97 03/10/20 16:32 106 H 20 139/87 03/10/20 16:30 105 H 20 97 03/10/20 16:25 109 H 98 03/10/20 16:20 109 H 98 03/10/20 16:17 106 H 20 141/88 H 03/10/20 16:15 109 H 98 03/10/20 16:10 107 H 97 03/10/20 16:05 102 H 97 03/10/20 16:04 105 H 94 03/10/20 16:02 36.6 C 106 H 18 141/89 H 03/10/20 16:00 102 H 97 03/10/20 15:55 104 H 99 03/10/20 15:51 18 03/10/20 15:50 104 H 97 03/10/20 15:47 107 H 138/90 03/10/20 15:45 110 H 97 03/10/20 15:40 109 H 97 03/10/20 15:35 108 H 96 03/10/20 15:32 36.9 C 105 H 20 150/88 H 03/10/20 15:31 108 H 94 03/10/20 15:30 108 H 98 03/10/20 15:25 117 H 96 03/10/20 15:20 112 H 97 03/10/20 15:17 109 H 149/80 H 03/10/20 15:15 107 H 95 03/10/20 15:10 105 H 95 06 15:08 109 H 94 03/10/20 15:05 91 H 97 03/10/20 15:02 109 H 136/75 03/10/20 15:00 104 H 93 03/10/20 14:56 18 03/10/20 14:55 106 H 95 03/10/20 14:50 111 H 95 03/10/20 14:49 110 H 94 03/10/20 14:47 111 H 137/81 03/10/20 14:45 110 H 96 03/10/20 14:43 18 03/10/20 14:42 109 H 94 03/10/20 14:40 114 H 96 03/10/20 14:35 114 H 97 03/10/20 14:33 111 H 133/85 03/10/20 14:30 111 H 18 94 03/10/20 14:26 107 H 94 03/10/20 14:25 109 H 94 03/10/20 14:21 110 H 94 03/10/20 14:20 114 H 98 03/10/20 14:17 112 H 141/68 H 03/10/20 14:15 112 H 95 03/10/20 14:14 20 03/10/20 14:10 110 H 97 03/10/20 14:05 117 H 99 03/10/20 14:01 118 H 135/62 03/10/20 14:00 119 H 100 03/10/20 13:59 20 03/10/20 13:56 116 H 130/59 L 03/10/20 13:55 117 H 100 03/10/20 13:51 122 H 141/67 H 03/10/20 13:50 124 H 100 03/10/20 13:45 126 H 100 03/10/20 13:44 126 H 20 136/68 03/10/20 13:41 126 H 133/66 03/10/20 13:40 123 H 98 03/10/20 13:38 116 H 133/66 03/10/20 13:37 36.6 C 20 03/10/20 13:35 93 H 88/54 L 96 03/10/20 13:32 112 H 84/52 L 03/10/20 13:30 96 H 96 03/10/20 13:29 96 H 83/44 L 03/10/20 13:25 109 H 98 03/10/20 13:20 100 H 100 03/10/20 13:15 103 H 100 03/10/20 13:10 103 H 97 03/10/20 13:06 18 03/10/20 12:44 102 H 133/85 03/10/20 11:45 95 H 155/97 H 03/10/20 11:19 36.6 C 20 03/10/20 10:44 93 H 142/93 H 03/10/20 09:46 100 H 137/93 03/10/20 09:20 36.3 C L 20 03/10/20 08:40 104 H 140/94 03/10/20 08:26 98 H 133/89 03/10/20 08:10 101 H 134/91 03/10/20 07:55 98 H 135/94 03/10/20 07:41 100 H 135/93 03/10/20 07:20 20 03/10/20 07:17 36.9 C 100 H 20 135/96 03/10/20 05:54 93 H 146/97 H 03/10/20 05:29 36.7 C 18 03/10/20 05:14 106 H 134/94 Pain Intensity Abdomen: Pain Intensity: 1 Transfer of Care Handoff Completed per policy Notes Mental Status: alert / awake / arousable and participated in evaluation Patient Amnestic to Procedure: Yes Nausea / Vomiting: adequately controlled Pain: adequately controlled Airway Patency, RR, SpO2: stable & adequate BP & HR: stable & adequate Hydration State: stable & adequate Neuraxial Anesthesia: was administered and sensory block is resolving Anesthetic Complications: no major complications apparent
[2020-03-11 02:05] LABS: Base Excess Cord Venous Blood -12.5 mEq/L (-7.7-1.9); Cord Venous Blood HCO3 18 mmol/L (18.4-26.8); Cord Venous Blood PCO2 58 mmHg (30.4-57.2); Cord Venous Blood PO2 20 mmHg (14.1-43.3); O2 Saturation Cord Venous Bld < 60.0 % (<68)
[2020-03-11] MEDS ORDERED: MoRPHine SULFATE 2 MG/ML CARP IV PRN (02:38)
[2020-03-11] MEDS ORDERED: ePHEDrine sulfate 50 MG/ML AMP IV PRN (02:38)
[2020-03-11] MEDS ORDERED: LACTATED RINGER'S 500 ML IV PRN (02:38)
[2020-03-11] MEDS ORDERED: NALOXONE HCL 0.08 MG in SYRINGE 1.8 ML IV PRN (02:38)
[2020-03-11] MEDS ORDERED: NALOXONE HCL 0.4 MG/1 ML VIAL/CARP IV PRN (02:38)
[2020-03-11] MEDS ORDERED: NALBUPHINE HCL INJ 10 MG/ML AMP IV PRN (02:38)
[2020-03-11] MEDS ORDERED: ONDANSETRON INJ 2 MG/ML 2 ML VIAL IV PRN ×2 (02:38→20:38)
[2020-03-11] MEDS ORDERED: MEPERIDINE HCL 25 MG/ML CARP/VIAL IV PRN (02:38)
[2020-03-11] MEDS ORDERED: HYDROmorphone INJ 0.5 MG/0.5 ML SYR IV PRN (02:38)
[2020-03-11] MEDS ORDERED: PROMETHAZINE HCL 25 MG in SODIUM CHLORIDE 0.9% 50 ML IV PRN ×2 (02:38→20:38)
[2020-03-11] MEDS ORDERED: MoRPHine SULFATE PF 1 MG/ML 10 ML AMP/VIAL INT SPINAL ONE (02:38)
[2020-03-11] MEDS ORDERED: METOCLOPRAMIDE HCL 20 MG in SODIUM CHLORIDE 0.9% 50 ML IV PRN (02:38)
[2020-03-11] MEDS ORDERED: NALOXONE HCL 1 MG in SODIUM CHLORIDE 0.9% 1000ML 1,000 ML IV PRN (02:38)
[2020-03-11] MEDS ORDERED: DC INTRASPINAL MORPHINE SCH (02:45)
[2020-03-11] MEDS ORDERED: NO NARCOTICS OR SEDATIVES SCH (02:45)
[2020-03-11] MEDS ORDERED: SODIUM CHLORIDE 0.9% 1000ML 1,000 ML IV SCH (02:45)
--- NOTE | 2020-03-11 07:20 | Obstetrical Progress Note ---
Date of Service March 11, 2020 Assessment & Plan (1) S/P section: Doing well Routine care. (2) Preeclampsia: check labs this am and mag level. PP mag for 12-24 hours. Day #:: 0 Subjective Ambulation: limited ambulation Voiding: joyce catheter in place Passing Gas:: No Diet Tolerance:: clear liquids Lochia:: Small Feeding Type:: breast feeding Patient lying in bed. Feeling very tired and hot. No pet symptoms Physical Exam Constitutional WD/WN, vitals as above Cardiovascular Extremities: + edema (tr +1); no calf tenderness Gastrointestinal (Abdomen) soft, nt ff/nt at u Psychiatric +2-3/2 dtrs, no clonus Results & Data Vital Signs (Past 12 Hours) Vital Signs Temp Pulse Resp BP Pulse Ox 03/11/20 07:16 93 H 97 03/11/20 07:11 90 97 03/11/20 07:06 89 97 03/11/20 07:04 87 94 03/11/20 07:01 91 H 97 03/11/20 06:56 90 97 03/11/20 06:51 89 97 03/11/20 06:47 87 94 03/11/20 06:46 86 94 03/11/20 06:41 92 H 98 03/11/20 06:36 88 97 03/11/20 06:31 90 97 03/11/20 06:30 91 H 94 03/11/20 06:26 89 96 03/11/20 06:25 16 96 03/11/20 06:22 93 H 141/84 H 03/11/20 06:21 95 H 97 03/11/20 06:16 94 H 96 03/11/20 06:15 92 H 93 03/11/20 06:11 90 96 03/11/20 06:06 98 H 96 03/11/20 06:01 97 H 95 03/11/20 05:56 100 H 97 03/11/20 05:53 93 H 94 03/11/20 05:51 97 H 98 03/11/20 05:46 94 H 96 03/11/20 05:44 95 H 94 03/11/20 05:41 96 H 95 03/11/20 05:38 94 H 94 03/11/20 05:36 99 H 97 03/11/20 05:31 97 H 97 03/11/20 05:27 95 H 94 03/11/20 05:26 98 H 98 03/11/20 05:22 100 H 136/81 03/11/20 05:21 99 H 96 03/11/20 05:20 16 96 03/11/20 05:16 99 H 95 03/11/20 05:15 99 H 94 03/11/20 05:11 99 H 95 03/11/20 05:06 98 H 95 03/11/20 05:01 97 H 95 03/11/20 04:56 95 H 95 03/11/20 04:51 94 H 95 03/11/20 04:46 95 H 95 03/11/20 04:44 86 94 03/11/20 04:41 96 H 95 03/11/20 04:36 95 H 95 03/11/20 04:31 95 H 95 03/11/20 04:26 92 H 96 03/11/20 04:22 92 H 140/94 03/11/20 04:21 94 H 97 03/11/20 04:20 18 99 03/11/20 04:16 95 H 99 03/11/20 04:11 93 H 97 03/11/20 04:06 94 H 97 03/11/20 04:01 94 H 99 03/11/20 03:56 101 H 100 03/11/20 03:51 95 H 99 03/11/20 03:46 94 H 100 03/11/20 03:41 96 H 100 03/11/20 03:36 96 H 100 03/11/20 03:31 95 H 100 03/11/20 03:26 95 H 100 03/11/20 03:22 93 H 154/94 H 03/11/20 03:21 36.5 C 93 H 18 145/87 H 96 03/11/20 03:20 36.5 C 18 03/11/20 03:16 93 H 100 03/11/20 03:11 95 H 142/84 H 100 03/11/20 03:06 95 H 100 03/11/20 03:04 95 H 149/81 H 03/11/20 03:01 96 H 167/100 H 100 03/11/20 02:56 97 H 100 03/11/20 02:51 98 H 156/96 H 100 03/11/20 02:50 18 03/11/20 02:46 98 H 100 03/11/20 02:41 99 H 152/91 H 100 03/11/20 02:36 99 H 100 03/11/20 02:31 101 H 146/87 H 100 03/11/20 02:26 105 H 100 03/11/20 02:21 99 H 139/80 100 03/11/20 02:20 18 03/11/20 02:16 101 H 100 03/11/20 02:11 101 H 128/77 99 03/11/20 02:10 18 03/11/20 02:06 103 H 99 03/11/20 02:01 110 H 118/71 100 03/11/20 02:00 18 03/11/20 01:56 108 H 97 03/11/20 01:51 109 H 107/59 L 97 03/11/20 01:50 18 03/11/20 01:46 111 H 97 03/11/20 01:41 110 H 106/57 L 97 03/11/20 01:40 18 03/11/20 01:36 109 H 98 03/11/20 01:31 108 H 123/55 L 97 03/11/20 01:30 18 03/11/20 01:26 104 H 96 03/11/20 01:24 104 H 94 03/11/20 01:21 104 H 112/64 100 03/11/20 01:20 36.5 C 18 03/11/20 01:16 103 H 100 03/11/20 01:12 102 H 109/63 03/11/20 01:11 102 H 100 03/11/20 00:05 98 H 18 99 03/11/20 00:02 99 H 122/81 03/11/20 00:00 36.8 C 101 H 18 97 03/10/20 23:55 95 H 96 03/10/20 23:50 90 99 03/10/20 23:47 95 H 133/78 03/10/20 23:45 96 H 97 03/10/20 23:40 98 H 98 03/10/20 23:35 96 H 100 03/10/20 23:32 100 H 147/86 H 03/10/20 23:30 98 H 18 100 03/10/20 23:25 98 H 99 03/10/20 23:20 88 100 03/10/20 23:17 96 H 143/85 H 03/10/20 23:15 97 H 100 03/10/20 23:10 96 H 100 03/10/20 23:05 95 H 100 03/10/20 23:03 95 H 141/81 H 03/10/20 23:00 97 H 18 99 03/10/20 22:55 85 100 03/10/20 22:50 87 100 03/10/20 22:47 93 H 116/68 03/10/20 22:45 94 H 100 03/10/20 22:40 90 100 03/10/20 22:35 91 H 100 03/10/20 22:32 93 H 134/78 03/10/20 22:30 92 H 18 96 03/10/20 22:25 95 H 98 03/10/20 22:20 95 H 97 03/10/20 22:17 99 H 123/71 03/10/20 22:15 94 H 98 03/10/20 22:10 97 H 98 03/10/20 22:05 92 H 97 03/10/20 22:02 95 H 121/70 03/10/20 22:00 36.5 C 99 H 18 95 03/10/20 21:55 97 H 96 03/10/20 21:50 99 H 97 03/10/20 21:47 95 H 129/76 03/10/20 21:45 97 H 97 03/10/20 21:40 96 H 98 03/10/20 21:35 97 H 97 03/10/20 21:32 99 H 128/74 03/10/20 21:30 96 H 18 95 03/10/20 21:25 98 H 97 03/10/20 21:20 97 H 96 03/10/20 21:17 96 H 130/72 03/10/20 21:15 95 H 96 03/10/20 21:10 94 H 97 03/10/20 21:05 94 H 97 03/10/20 21:03 90 121/67 03/10/20 21:00 102 H 18 96 03/10/20 20:55 96 H 98 03/10/20 20:50 101 H 100 03/10/20 20:47 94 H 144/89 H 03/10/20 20:45 100 H 97 03/10/20 20:40 102 H 98 03/10/20 20:35 103 H 95 03/10/20 20:32 103 H 136/81 03/10/20 20:31 101 H 93 03/10/20 20:30 100 H 94 03/10/20 20:25 99 H 98 03/10/20 20:20 36.6 C 99 H 18 95 03/10/20 20:17 99 H 137/82 03/10/20 20:15 102 H 96 03/10/20 20:10 101 H 98 03/10/20 20:05 101 H 97 03/10/20 20:02 100 H 140/85 03/10/20 20:00 36.6 C 100 H 18 98 03/10/20 19:55 102 H 98 03/10/20 19:50 101 H 98 03/10/20 19:47 97 H 144/87 H 03/10/20 19:45 103 H 98 03/10/20 19:40 103 H 97 03/10/20 19:35 98 H 96 03/10/20 19:33 97 H 135/82 03/10/20 19:30 102 H 97 03/10/20 19:25 95 H 97 03/10/20 19:22 18 03/10/20 19:20 102 H 97 03/10/20 19:18 100 H 144/87 H
[2020-03-11 08:01] LABS: Hematocrit (blood only) 36.2 % (37-47); Mean Corpuscular Hemoglobin 28.7 pg (25-34); Mean Corpuscular Hgb Conc 33.1 g/dL (32-36); Mean Corpuscular Volume 86.6 fL (80-100); Mean Platelet Volume 12.5 fL (7.4-10.4); Nucleated RBC # (auto) 0.28 K/uL (0-0); Nucleated RBC % (auto) 1.5 %; Platelet Count 247 K/uL (130-400); RDW Standard Deviation 49.2 fL (36.4-46.3); Red Blood Count 4.18 M/uL (4.2-5.4); White Blood Count 18.35 K/uL (4.8-10.8)
[2020-03-11 08:03] LABS: Basophils # (auto) 0.04 K/uL (0-0.2); Basophils % (auto) 0.2 %; Immature Granulocytes # (auto) 0.15 K/uL (0.00-0.02); Immature Granulocytes % (auto) 0.8 %; Lymphocytes # (auto) 1.32 K/uL (1.2-3.4); Lymphocytes % (auto) 7.2 %; Monocytes % (auto) 4.9 %; Neutrophils # (auto) 15.94 K/uL (1.4-6.5); Neutrophils % (auto) 86.9 %
[2020-03-11 08:29] LABS: Albumin Globulin Ratio 0.5 (0.9-2); BUN Creatinine Ratio 10.3 (10-20); Bilirubin,Total 0.5 mg/dl (0.2-1); Calcium 7.1 mg/dl (8.5-10.1); Creatinine Clr Calc Pharmacy 60.6 ml/min; Est GFR (African American) 47.2; Est GFR (Non-African American) 40.7; Globulin 3.9 gm/dl (2.5-4.0); Magnesium Therapeutic L&D Only 8.9 mg/dL (4.0-8.0); Potassium 3.9 mmol/L (3.5-5.1); Total Protein 5.9 gm/dl (6.4-8.2)
--- NOTE | 2020-03-11 08:32 | Obstetrical Progress Note ---
Date of Service March 11, 2020 Subjective Patient awake, sitting up, . Feeling ok. Mag level 8.9. Will decrease to 1g/hr, recheck mag level in 6h and monitor s/s closely. LFT improved somewhat since yesterday morning, Cr increased. Will repeat preE labs with the mag level in 6h. Results & Data Vital Signs (Past 12 Hours) Vital Signs Temp Pulse Resp BP Pulse Ox 03/11/20 08:28 85 94 03/11/20 08:26 88 96 03/11/20 08:21 89 94 03/11/20 08:18 90 94 03/11/20 08:16 90 96 03/11/20 08:15 36.0 C L 03/11/20 08:13 87 94 03/11/20 08:11 87 94 03/11/20 08:06 84 92 03/11/20 08:04 83 94 03/11/20 08:01 88 91 03/11/20 07:56 83 93 03/11/20 07:54 83 93 03/11/20 07:51 87 96 03/11/20 07:46 87 96 03/11/20 07:41 87 96 03/11/20 07:40 85 94 03/11/20 07:36 86 97 03/11/20 07:31 86 96 03/11/20 07:30 35.8 C L 86 16 03/11/20 07:26 86 96 03/11/20 07:23 88 145/84 H 03/11/20 07:21 88 96 03/11/20 07:17 90 94 03/11/20 07:16 93 H 97 03/11/20 07:11 90 97 03/11/20 07:06 89 97 03/11/20 07:04 87 94 03/11/20 07:01 91 H 97 03/11/20 06:56 90 97 03/11/20 06:51 89 97 03/11/20 06:47 87 94 03/11/20 06:46 86 94 03/11/20 06:41 92 H 98 03/11/20 06:36 88 97 03/11/20 06:31 90 97 03/11/20 06:30 91 H 94 03/11/20 06:26 89 96 03/11/20 06:25 16 96 03/11/20 06:22 93 H 141/84 H 03/11/20 06:21 95 H 97 03/11/20 06:16 94 H 96 03/11/20 06:15 92 H 93 03/11/20 06:11 90 96 03/11/20 06:06 98 H 96 03/11/20 06:01 97 H 95 03/11/20 05:56 100 H 97 03/11/20 05:53 93 H 94 03/11/20 05:51 97 H 98 03/11/20 05:46 94 H 96 03/11/20 05:44 95 H 94 03/11/20 05:41 96 H 95 03/11/20 05:38 94 H 94 03/11/20 05:36 99 H 97 03/11/20 05:31 97 H 97 03/11/20 05:27 95 H 94 03/11/20 05:26 98 H 98 03/11/20 05:22 100 H 136/81 03/11/20 05:21 99 H 96 03/11/20 05:20 16 96 03/11/20 05:16 99 H 95 03/11/20 05:15 99 H 94 03/11/20 05:11 99 H 95 03/11/20 05:06 98 H 95 03/11/20 05:01 97 H 95 03/11/20 04:56 95 H 95 03/11/20 04:51 94 H 95 03/11/20 04:46 95 H 95 03/11/20 04:44 86 94 03/11/20 04:41 96 H 95 03/11/20 04:36 95 H 95 03/11/20 04:31 95 H 95 03/11/20 04:26 92 H 96 03/11/20 04:22 92 H 140/94 03/11/20 04:21 94 H 97 03/11/20 04:20 18 99 03/11/20 04:16 95 H 99 03/11/20 04:11 93 H 97 03/11/20 04:06 94 H 97 03/11/20 04:01 94 H 99 03/11/20 03:56 101 H 100 03/11/20 03:51 95 H 99 03/11/20 03:46 94 H 100 03/11/20 03:41 96 H 100 03/11/20 03:36 96 H 100 03/11/20 03:31 95 H 100 03/11/20 03:26 95 H 100 03/11/20 03:22 93 H 154/94 H 03/11/20 03:21 36.5 C 93 H 18 145/87 H 96 03/11/20 03:20 36.5 C 18 03/11/20 03:16 93 H 100 03/11/20 03:11 95 H 142/84 H 100 03/11/20 03:06 95 H 100 03/11/20 03:04 95 H 149/81 H 03/11/20 03:01 96 H 167/100 H 100 03/11/20 02:56 97 H 100 03/11/20 02:51 98 H 156/96 H 100 03/11/20 02:50 18 03/11/20 02:46 98 H 100 03/11/20 02:41 99 H 152/91 H 100 03/11/20 02:36 99 H 100 03/11/20 02:31 101 H 146/87 H 100 03/11/20 02:26 105 H 100 03/11/20 02:21 99 H 139/80 100 03/11/20 02:20 18 03/11/20 02:16 101 H 100 03/11/20 02:11 101 H 128/77 99 03/11/20 02:10 18 03/11/20 02:06 103 H 99 03/11/20 02:01 110 H 118/71 100 03/11/20 02:00 18 03/11/20 01:56 108 H 97 03/11/20 01:51 109 H 107/59 L 97 03/11/20 01:50 18 03/11/20 01:46 111 H 97 03/11/20 01:41 110 H 106/57 L 97 03/11/20 01:40 18 03/11/20 01:36 109 H 98 03/11/20 01:31 108 H 123/55 L 97 03/11/20 01:30 18 03/11/20 01:26 104 H 96 03/11/20 01:24 104 H 94 03/11/20 01:21 104 H 112/64 100 03/11/20 01:20 36.5 C 18 03/11/20 01:16 103 H 100 03/11/20 01:12 102 H 109/63 03/11/20 01:11 102 H 100 03/11/20 00:05 98 H 18 99 03/11/20 00:02 99 H 122/81 03/11/20 00:00 36.8 C 101 H 18 97 03/10/20 23:55 95 H 96 03/10/20 23:50 90 99 03/10/20 23:47 95 H 133/78 03/10/20 23:45 96 H 97 03/10/20 23:40 98 H 98 03/10/20 23:35 96 H 100 03/10/20 23:32 100 H 147/86 H 03/10/20 23:30 98 H 18 100 03/10/20 23:25 98 H 99 03/10/20 23:20 88 100 03/10/20 23:17 96 H 143/85 H 03/10/20 23:15 97 H 100 03/10/20 23:10 96 H 100 03/10/20 23:05 95 H 100 03/10/20 23:03 95 H 141/81 H 03/10/20 23:00 97 H 18 99 03/10/20 22:55 85 100 03/10/20 22:50 87 100 03/10/20 22:47 93 H 116/68 03/10/20 22:45 94 H 100 03/10/20 22:40 90 100 03/10/20 22:35 91 H 100 03/10/20 22:32 93 H 134/78 03/10/20 22:30 92 H 18 96 03/10/20 22:25 95 H 98 03/10/20 22:20 95 H 97 03/10/20 22:17 99 H 123/71 03/10/20 22:15 94 H 98 03/10/20 22:10 97 H 98 03/10/20 22:05 92 H 97 03/10/20 22:02 95 H 121/70 03/10/20 22:00 36.5 C 99 H 18 95 03/10/20 21:55 97 H 96 03/10/20 21:50 99 H 97 03/10/20 21:47 95 H 129/76 03/10/20 21:45 97 H 97 03/10/20 21:40 96 H 98 03/10/20 21:35 97 H 97 03/10/20 21:32 99 H 128/74 03/10/20 21:30 96 H 18 95 03/10/20 21:25 98 H 97 03/10/20 21:20 97 H 96 03/10/20 21:17 96 H 130/72 03/10/20 21:15 95 H 96 03/10/20 21:10 94 H 97 03/10/20 21:05 94 H 97 03/10/20 21:03 90 121/67 03/10/20 21:00 102 H 18 96 03/10/20 20:55 96 H 98 03/10/20 20:50 101 H 100 03/10/20 20:47 94 H 144/89 H 03/10/20 20:45 100 H 97 03/10/20 20:40 102 H 98 03/10/20 20:35 103 H 95 03/10/20 20:32 103 H 136/81 03/10/20 20:31 101 H 93 PG Care Time/CCT Total # of Minutes Spent Total Time Spent with Patient: Total time spent is greater than 50% in coordination of care (as documented) at patient's floor/unit and/or counseling patient: Coding Level of Care Code None
[2020-03-11] MEDS: PRENATAL VITAMIN 1 TAB PO SCH (08:39)
[2020-03-11] MEDS: FERROUS SULFATE 325 MG TAB PO SCH (08:39)
[2020-03-11] MEDS: DOCUSATE SODIUM 100 MG CAP PO SCH ×2 (08:39→21:11)
[2020-03-11] MEDS: SIMETHICONE 80 MG CHEW PO SCH ×4 (08:39→21:11)
[2020-03-11 12:24] LABS: Albumin Level 1.8 gm/dl (3.4-5.0); BUN Creatinine Ratio 11.1 (10-20); Calcium 6.6 mg/dl (8.5-10.1); Creatinine Clr Calc Pharmacy 61.3 ml/min; Est GFR (African American) 47.9; Est GFR (Non-African American) 41.4; Potassium 4.2 mmol/L (3.5-5.1)
[2020-03-11 12:26] LABS: Albumin Globulin Ratio 0.5 (0.9-2); Bilirubin,Total 0.4 mg/dl (0.2-1); Globulin 3.8 gm/dl (2.5-4.0); Total Protein 5.6 gm/dl (6.4-8.2)
[2020-03-11 12:28] LABS: Hematocrit (blood only) 34.7 % (37-47); Hemoglobin 11.4 g/dL (12.0-16.0); Mean Corpuscular Hemoglobin 28.4 pg (25-34); Mean Corpuscular Hgb Conc 32.9 g/dL (32-36); Mean Corpuscular Volume 86.3 fL (80-100); Mean Platelet Volume 11.9 fL (7.4-10.4); Nucleated RBC # (auto) 0.27 K/uL (0-0); Nucleated RBC % (auto) 1.5 %; Platelet Count 243 K/uL (130-400); RDW Coefficient of Variation 15.8 % (11.5-14.5); RDW Standard Deviation 48.5 fL (36.4-46.3); Red Blood Count 4.02 M/uL (4.2-5.4); White Blood Count 17.93 K/uL (4.8-10.8)
[2020-03-11] MEDS ORDERED: MEPERIDINE HCL 50 MG/ML CARP IV PRN (20:38)
[2020-03-12] MEDS: OXYCODONE/ACETAMINOPHEN 5mg/325mg TAB PO PRN ×2 (00:05→20:27)
--- NOTE | 2020-03-12 06:47 | Obstetrical Progress Note ---
Date of Service <Delano Strickland DO - Last Filed: 03/12/20 06:47> March 12, 2020 Assessment & Plan <Delano Strickland DO - Last Filed: 03/12/20 06:47> (1) S/P section: -POD#1 -Vitals reviewed, WNL - GBS -, Blood Type A+ - Clinically stable. - S/P Mag, pressures have remained stable. - Feels well today. Eating well, voiding well, ambulating well. - Pain well controlled. - Routine post care - After discharge will have [address] Hernandez. (2) Preeclampsia: Day #:: 1 Subjective <Delano Strickland DO - Last Filed: 03/12/20 06:47> Ambulation: ambulating normally Voiding: no voiding problems Passing Gas:: Yes Diet Tolerance:: regular diet Lochia:: Moderate Feeding Type:: breast feeding Current Pain Level(1-10): 2 (improves with analgesics) Patient is a 39 POD#1. Patient states that she is doing well this morning and that her pain is well controlled. She has no complaints at this point in time. Denies any headache, RUQ pain, worsening swelling. Constitutional: no fever and no chills Respiratory: no cough, no dyspnea and no wheezing Cardiovascular: + edema; no chest pain, no dyspnea, no dyspnea on exertion and no calf pain Breast: no breast pain Gastrointestinal: no abdominal pain, no nausea and no vomiting Genitourinary (female): no dysuria Neurologic: no headache(s) Physical Exam <DO Hayley Rodriguez Last Filed: 03/12/20 06:47> Constitutional WD/WN, vitals as above Respiratory normal respiratory effort, lungs clear to auscultation Cardiovascular Rate/Rhythm: regular rate and regular rhythm Heart Sounds: normal S1 and normal S2; no click, no gallop, no murmur and no cardiac rub Extremities: + edema (+1); no calf tenderness Gastrointestinal (Abdomen) Inspection/Auscultation: abdomen normal to inspection, normal bowel sounds and + abdominal surgical incision (Dressing Clean and Dry. ) Percussion/Palpation: + abdomen tender (TTP in lower quadrants, appropriate) and abdomen soft Genitourinary OB Exam Abdomen: + fundal height Fundus: + firm and + relation to umbilicus (at level of umbilicus, has not voided this AM); not tender and not boggy Results & Data <Delano Strickland DO - Last Filed: 03/12/20 06:47> Vital Signs (Past 12 Hours) Vital Signs Temp Pulse Pulse Resp BP BP Pulse Ox 03/12/20 02:00 36.6 C 98 H 16 107/72 98 03/12/20 00:34 90 98/62 L 03/12/20 00:33 91 H 94 03/12/20 00:31 96 H 95 03/12/20 00:30 91 H 16 98/62 L 94 03/12/20 00:26 90 93 03/12/20 00:22 88 94/61 L 94 03/12/20 00:21 90 94 03/12/20 00:16 88 93 03/12/20 00:11 90 96 03/12/20 00:08 90 94 03/12/20 00:06 86 98 03/12/20 00:02 89 94 03/12/20 00:01 91 H 95 03/12/20 00:00 16 03/11/20 23:56 91 H 94 03/11/20 23:51 89 92 03/11/20 23:49 88 94 03/11/20 23:46 89 93 03/11/20 23:43 92 H 93 03/11/20 23:41 87 96 03/11/20 23:38 89 94 03/11/20 23:36 91 H 96 03/11/20 23:32 91 H 94 03/11/20 23:31 90 96 03/11/20 23:28 89 115/68 03/11/20 23:26 95 H 95 03/11/20 23:25 94 H 93 03/11/20 23:22 95 H 126/77 03/11/20 23:21 108 H 83 L 03/11/20 23:19 92 H 93 03/11/20 23:16 94 H 95 03/11/20 23:13 91 H 94 03/11/20 23:11 95 H 96 03/11/20 23:06 91 H 94 03/11/20 23:01 91 H 94 03/11/20 23:00 36.8 C 16 03/11/20 22:56 91 H 95 03/11/20 22:53 90 94 03/11/20 22:51 91 H 94 03/11/20 22:47 90 94 03/11/20 22:46 91 H 94 03/11/20 22:41 91 H 92 03/11/20 22:36 97 H 95 03/11/20 22:35 93 H 94 03/11/20 22:31 93 H 95 03/11/20 22:29 94 H 94 03/11/20 22:26 94 H 94 03/11/20 22:24 94 H 94 03/11/20 22:22 93 H 108/71 03/11/20 22:21 94 H 94 03/11/20 22:17 95 H 94 03/11/20 22:16 98 H 95 03/11/20 22:11 96 H 95 03/11/20 22:10 98 H 94 03/11/20 22:06 97 H 95 03/11/20 22:05 95 H 94 03/11/20 22:01 97 H 96 03/11/20 21:59 95 H 94 03/11/20 21:56 92 H 93 03/11/20 21:51 98 H 94 03/11/20 21:49 95 H 94 03/11/20 21:46 96 H 94 03/11/20 21:44 95 H 94 03/11/20 21:41 95 H 92 03/11/20 21:36 96 H 96 03/11/20 21:33 93 H 94 03/11/20 21:31 92 H 94 03/11/20 21:26 96 H 95 03/11/20 21:25 96 H 93 03/11/20 21:22 94 H 116/62 03/11/20 21:21 95 H 94 03/11/20 21:20 93 H 94 03/11/20 21:16 97 H 94 03/11/20 21:12 100 H 94 03/11/20 21:11 97 H 94 03/11/20 21:06 98 H 94 03/11/20 21:05 97 H 94 03/11/20 21:01 97 H 94 03/11/20 20:58 97 H 94 03/11/20 20:56 97 H 95 03/11/20 20:52 97 H 94 03/11/20 20:51 96 H 95 03/11/20 20:46 94 H 95 03/11/20 20:44 96 H 94 03/11/20 20:41 98 H 96 03/11/20 20:36 94 H 97 03/11/20 20:31 92 H 98 03/11/20 20:26 94 H 99 03/11/20 20:22 90 115/70 03/11/20 20:21 93 H 100 03/11/20 20:16 93 H 100 03/11/20 20:11 93 H 100 03/11/20 20:09 20 100 03/11/20 20:06 92 H 100 03/11/20 20:01 90 100 03/11/20 20:00 20 03/11/20 19:56 89 100 03/11/20 19:51 92 H 100 03/11/20 19:46 93 H 100 03/11/20 19:41 91 H 100 03/11/20 19:36 91 H 98 03/11/20 19:31 89 100 03/11/20 19:30 36.5 C 89 18 100 03/11/20 19:26 86 109/65 100 03/11/20 19:21 86 100 03/11/20 19:16 89 100 03/11/20 19:11 89 98 03/11/20 19:06 88 98 03/11/20 19:01 89 100 03/11/20 19:00 20 100 03/11/20 18:56 87 99 03/11/20 18:51 91 H 100 03/11/20 18:46 89 100 <Mukund Alonzo MD - Last Filed: 03/12/20 08:09> Co-Signing Physician Notes Patient seen and evaluated and agree with the above findings and plan. Routine care Resident Activity Tracking <Delano Strickland DO - Last Filed: 03/12/20 06:47> Resident Involvement: Resident Care Provided Care Provided: OB Delivery
[2020-03-12 07:32] LABS: Hemoglobin 10.8 g/dL (12.0-16.0); Mean Corpuscular Hemoglobin 28.3 pg (25-34); Mean Corpuscular Hgb Conc 32.7 g/dL (32-36); Mean Corpuscular Volume 86.4 fL (80-100); Mean Platelet Volume 11.8 fL (7.4-10.4); Nucleated RBC # (auto) 0.29 K/uL (0-0); Nucleated RBC % (auto) 3.3 %; Platelet Count 239 K/uL (130-400); RDW Coefficient of Variation 16.2 % (11.5-14.5); RDW Standard Deviation 49.6 fL (36.4-46.3); Red Blood Count 3.82 M/uL (4.2-5.4); White Blood Count 8.73 K/uL (4.8-10.8)
[2020-03-12] MEDS: SIMETHICONE 80 MG CHEW PO SCH ×3 (07:57→20:27)
[2020-03-12] MEDS: FERROUS SULFATE 325 MG TAB PO SCH (07:57)
[2020-03-12 07:58] LABS: Basophils # (auto) 0.01 K/uL (0-0.2); Basophils % (auto) 0.1 %; Dohle Bodies 1+; Eosinophils # (auto) 0.02 K/uL (0-0.5); Eosinophils % (auto) 0.2 %; Giant Platelets 1+; Immature Granulocytes # (auto) 0.04 K/uL (0.00-0.02); Immature Granulocytes % (auto) 0.5 %; Lymphocytes % (auto) 17.2 %; Neutrophils # (auto) 6.46 K/uL (1.4-6.5)
[2020-03-12] MEDS: IBUPROFEN 600 MG TAB PO PRN ×3 (07:58→20:27)
[2020-03-12] MEDS: PRENATAL VITAMIN 1 TAB PO SCH (07:58)
[2020-03-12] MEDS: DOCUSATE SODIUM 100 MG CAP PO SCH ×2 (07:58→20:27)
[2020-03-12 08:07] LABS: Albumin Level 1.7 gm/dl (3.4-5.0); BUN Creatinine Ratio 15.9 (10-20); Calcium 7.1 mg/dl (8.5-10.1); Creatinine Clr Calc Pharmacy 74.6 ml/min; Est GFR (African American) 60.7; Est GFR (Non-African American) 52.4; Potassium 4.1 mmol/L (3.5-5.1)
[2020-03-12 08:09] LABS: Albumin Globulin Ratio 0.4 (0.9-2); Bilirubin,Total 0.4 mg/dl (0.2-1); Globulin 3.8 gm/dl (2.5-4.0); Total Protein 5.5 gm/dl (6.4-8.2)
[2020-03-12] MEDS ORDERED: bisacodyL 5 MG TABEC PO SCH (20:00)
[2020-03-13] MEDS: IBUPROFEN 600 MG TAB PO PRN ×4 (00:21→21:02)
[2020-03-13] MEDS: OXYCODONE/ACETAMINOPHEN 5mg/325mg TAB PO PRN ×4 (00:22→21:03)
[2020-03-13] MEDS ORDERED: bisacodyL 10 MG SUPP PR PRN (01:20)
--- NOTE | 2020-03-13 06:14 | Obstetrical Progress Note ---
Date of Service <Delano Strickland DO - Last Filed: 03/13/20 06:14> March 13, 2020 Assessment & Plan <Delano Strickland DO - Last Filed: 03/13/20 06:14> (1) S/P section: -POD#2 -Vitals reviewed, WNL - GBS -, Blood Type A+ - Clinically stable. - S/P Mag, pressures have continued to remained stable. - Feels well today. Eating well, voiding well, ambulating well. - Pain well controlled. - Routine post care - After discharge will have [address] Hernandez. (2) Preeclampsia: Day #:: 2 Subjective <Delano Strickland DO - Last Filed: 03/13/20 06:14> Ambulation: ambulating normally Voiding: no voiding problems Passing Gas:: Yes Diet Tolerance:: regular diet Lochia:: Small Feeding Type:: breast feeding Current Pain Level(1-10): 2 (improves with analgesics) Patient is a 39 POD#2. Patient states that she is doing well this morning and that her pain is well controlled. She has no complaints at this point in time. Constitutional: no fever and no chills Respiratory: no cough, no dyspnea and no wheezing Cardiovascular: + edema; no chest pain, no dyspnea, no dyspnea on exertion and no calf pain Breast: no breast pain Gastrointestinal: + abdominal pain (diffusely, appropriate); no nausea and no vomiting Genitourinary (female): no dysuria Neurologic: no headache(s) Physical Exam <Delano Strickland DO - Last Filed: 03/13/20 06:14> Constitutional WD/WN, vitals as above Respiratory normal respiratory effort, lungs clear to auscultation Cardiovascular Rate/Rhythm: regular rate and regular rhythm Heart Sounds: normal S1 and normal S2; no click, no gallop, no murmur and no cardiac rub Extremities: + edema (+1); no calf tenderness Gastrointestinal (Abdomen) Inspection/Auscultation: abdomen normal to inspection, normal bowel sounds and + abdominal surgical incision (Clean and Dry. ) Percussion/Palpation: + abdomen tender (TTP in lower quadrants, appropriate) and abdomen soft Genitourinary OB Exam Abdomen: + fundal height Fundus: + firm and + relation to umbilicus (3cm below); not tender and not boggy Results & Data <Delano Strickland DO - Last Filed: 03/13/20 06:14> Vital Signs (Past 12 Hours) Vital Signs Temp Pulse Resp BP Pulse Ox 03/12/20 23:55 36.6 C 96 H 16 127/82 96 03/12/20 20:15 36.8 C 95 H 16 114/77 95 <Nicky Major MD - Last Filed: 03/13/20 07:24> Co-Signing Physician Notes I have reviewed the resident's note and examined the patient myself, and agree with the note above. Resident Activity Tracking <Delano Strickland DO - Last Filed: 03/13/20 06:14> Resident Involvement: Resident Care Provided Care Provided: OB Delivery
[2020-03-13 06:15] LABS: Hemoglobin 10.3 g/dL (12.0-16.0)
[2020-03-13] MEDS: DOCUSATE SODIUM 100 MG CAP PO SCH ×2 (07:22→20:58)
[2020-03-13] MEDS: FERROUS SULFATE 325 MG TAB PO SCH (07:22)
[2020-03-13] MEDS: SIMETHICONE 80 MG CHEW PO SCH ×3 (07:22→20:58)
[2020-03-13] MEDS: PRENATAL VITAMIN 1 TAB PO SCH (07:22)
[2020-03-14] MEDS: OXYCODONE/ACETAMINOPHEN 5mg/325mg TAB PO PRN ×2 (06:17→14:31)
[2020-03-14] MEDS: IBUPROFEN 600 MG TAB PO PRN ×2 (06:18→14:31)
--- NOTE | 2020-03-14 06:36 | Obstetrical Progress Note ---
Date of Service <Delano Strickland - Last Filed: 03/14/20 06:41> March 14, 2020 Assessment & Plan <Delano Strickland DO - Last Filed: 03/14/20 06:41> (1) S/P section: -POD#3 -Vitals reviewed, WNL - GBS -, Blood Type A+ - Clinically stable. - S/P Mag, pressures have continued to remained stable. - Feels well today. Eating well, voiding well, ambulating well. - Pain well controlled. - Routine post care - Discussed discharge instructions with patient this AM - After discharge will have [address] Hernandez. (2) Preeclampsia: Subjective <Delano Longvalentina - Last Filed: 03/14/20 06:41> Ambulation: ambulating normally Voiding: no voiding problems Passing Gas:: Yes Diet Tolerance:: regular diet Lochia:: Small Feeding Type:: breast feeding Current Pain Level(1-10): 1 (improved with analgesics) Patient is a 39 POD#3. Patient states that she is doing well this morning and that her pain is well controlled. She has no complaints at this point in time. Constitutional: no fever and no chills Respiratory: no cough, no dyspnea and no wheezing Cardiovascular: + edema; no chest pain, no dyspnea, no dyspnea on exertion and no calf pain Breast: no breast pain Gastrointestinal: + abdominal pain (appropriate); no nausea and no vomiting Genitourinary (female): no dysuria Neurologic: no headache(s) Physical Exam <Delano Longvalentina - Last Filed: 03/14/20 06:41> Constitutional WD/WN, vitals as above Respiratory normal respiratory effort, lungs clear to auscultation Cardiovascular Rate/Rhythm: regular rate and regular rhythm Heart Sounds: normal S1 and normal S2; no click, no gallop, no murmur and no cardiac rub Extremities: + edema (+1); no calf tenderness Gastrointestinal (Abdomen) Inspection/Auscultation: abdomen normal to inspection, normal bowel sounds and + abdominal surgical incision (Clean and Dry, No Pus noted. ) Percussion/Palpation: + abdomen tender (slightly ttp in lower quadrants, appropriate) and abdomen soft Neurologic patellar DTR's 2+ bilat, sensation intact Genitourinary OB Exam Abdomen: + fundal height Fundus: + firm; not tender and not boggy Results & Data <Delano Strickland DO - Last Filed: 03/14/20 06:41> Vital Signs (Past 12 Hours) Vital Signs Temp Pulse Resp BP 03/13/20 23:10 36.8 C 95 H 18 134/93 03/13/20 19:35 36.9 C 90 18 132/93 <William Stallworth Jr, MD, FACOG - Last Filed: 03/14/20 07:54> Co-Signing Physician Notes Resident Physician Supervision Note: I was present with Dr. Strickland during the history and exam. I discussed the case with the resident and agree with the findings and plan as documented in the note. Any exceptions or clarifications are listed here: LFT's continuing to trend downward. Patient desired d/c. Instructions and Rx sent. F/U in 1 week for BP check Documented By: William Stallworth Jr, MD, FACOG Resident Activity Tracking <Delano Strickland DO - Last Filed: 03/14/20 06:41> Resident Involvement: Resident Care Provided Care Provided: OB Delivery
[2020-03-14 07:49] LABS: Alanine Aminotransferase 129 U/L (12-78); Albumin Level 1.6 gm/dl (3.4-5.0); Alkaline Phosphatase 169 U/L (45-117); Aspartate Aminotransferase 78 U/L (15-37); Bilirubin Direct < 0.1 mg/dl (0-0.2); Bilirubin,Total 0.1 mg/dl (0.2-1); Total Protein 5.6 gm/dl (6.4-8.2)
[2020-03-14] MEDS: DOCUSATE SODIUM 100 MG CAP PO SCH (08:05)
[2020-03-14] MEDS: FERROUS SULFATE 325 MG TAB PO SCH (08:05)
[2020-03-14] MEDS: PRENATAL VITAMIN 1 TAB PO SCH (08:05)
[2020-03-14] MEDS: SIMETHICONE 80 MG CHEW PO SCH ×2 (08:06→14:32)
--- NOTE | 2020-03-19 00:56 | Discharge Summary (DS) ---
ADMITTING DIAGNOSES: 1. Intrauterine at 40 and 5/7 weeks. 2. Rupture of membranes with meconium. 3. Diet-controlled gestational diabetes. 4. Preeclampsia without severe features. DISCHARGE DIAGNOSES: 1. Intrauterine at 40 and 5/7 weeks. 2. Rupture of membranes with meconium. 3. Diet-controlled gestational diabetes. 4. Preeclampsia without severe features. 5. Nonreassuring heart tones. 6. left paratubal cyst. PROCEDURES: 1. Primary low transverse section and drainage of left paratubal cyst. 2. Magnesium sulfate prophylaxis. 3. Pitocin augmentation. 4. Epidural. 5. Drainage of left paratubal cyst HISTORY OF PRESENT ILLNESS: The patient is a 39-year-old white female 1, para 0 with an intrauterine at 40 and 5/7 weeks who presented to labor and delivery noting a gush of fluid and has continued leaking since a little after 3:00 a.m. Notes the fluid is discolored, notes some pressure, but not uncomfortable. Notes good movement. Her was complicated by diet-controlled gestational diabetes. For the rest of the patient's detailed history and physical, please see her history and physical. On physical exam, she was grossly ruptured with green meconium stained fluid. Her cervix was 1, 50%, -2. Tocodynamometer showed her bryce about every 5 minutes. External monitor showed the baby was in the 130s, 135 with moderate variability, accels to the 150s, no decels. Her pressures were slightly elevated in the 140s over high 90s range. ASSESSMENT AND PLAN: 1. This is a 39-year-old white female 1, para 0 at 40 and 5/7 weeks who presents to labor and delivery with gross rupture of membranes with thick meconium stained fluid. 2. Diet controlled gestational diabetes. HOSPITAL COURSE: The patient was admitted and she underwent Pitocin augmentation. Because of her mildly elevated blood pressures, labs were obtained showing significantly elevated LFTs and creatinine consistent with preeclampsia without severe blood pressure features. This situation was discussed with the patient, who expressed understanding and magnesium prophylaxis was initiated. The patient slowly progressed, received an epidural, and then was found to be 4, 90, and -2. Pressures were running in the 130s to 140s over 60s to mid 80s. She did have an episode of hypotension after the epidural, which required us to turn off the Pitocin for a small bit of time, but that resolved with ephedrine and fluid hydration. We continued the Pitocin. When the patient was 5, 90, and -1, an IUPC was placed. She then progressed very slowly to 8, 100%, -1 station, but at that point in time the baby was starting to have some intermittent late decelerations that were responsive to some position changes. The baby had decreased variability, likely secondary to mag effect. We continued to watch very closely. We did have to turn the Pitocin off because of the late decelerations. Once we turned the Pitocin off, the contractions spaced significantly quickly. After the Pitocin was off the strip, the heart tones improved. The contractions were spaced and not as powerful. We discussed the pros and cons of turning the Pitocin back on to get to an adequate labor for contraction and the likelihood of nonreassuring heart testing with this. The patient at this point in time was having vomiting and had a couple of decelerations after this, which was concerning for decelerations with pushing that the baby may not tolerate pushing. Given her primiparous status, we did not know how long the labor would last from here and how long she would push. The station did not progress beyond -1 station. After discussing the pros and cons of proceeding with delivery at this point in time versus trying Pitocin again, we decided to proceed with delivery. The patient underwent a primary low transverse section without significant difficulty. Estimated blood loss was 600 mL. The procedure was uncomplicated. There was a left paratubal cyst that was drained at the time of surgery. The patient was maintained on magnesium sulfate prophylaxis for 24 hours with blood pressures 130s to 140s over mostly 70s to 80s with an occasional 90. Mag levels were checked. She did have a mag level up to 8.9, so her prophylaxis was decreased from 2 grams an hour to 1 gram per hour. Liver functions and creatinine slowly decreased. She did significantly diurese and eventually at 24 hours, the magnesium was discontinued. She had a relatively uncomplicated course after that. She voided after her Rosales catheter was removed. Her diet was advanced as tolerated. She had minimal nausea and vomiting. She ambulated without difficulty and her pain was well controlled on oral pain medications. She was discharged home on postoperative day #3. Will follow up within the week for a blood pressure check in the office. After the magnesium was off, her blood pressures remained one-teens to 130s over 70s to a high of 99. DISCHARGE LABORATORY DATA: Discharge H and H was 10.3 and 32.0. Her platelets never dropped during the course. Her AST on discharge was 78 after a high of 466. Her ALT was 129 after a high of 652. Her creatinine was as high as 1.60, but was coming down to 1.30 on discharge from the hospital. ARIEL
== END 2020-03-14 16:44 | disposition home or self-care (01) | DRG 788 ==
LOC: OPB 04:57 → 4S1 05:01 → 4S2 03-12 01:56

== ENCOUNTER 2020-05-15 10:40 | Inpatient (IN) ==
--- NOTE | 2020-05-15 12:55 | History & Physical Report ---
Date of Service May 15, 2020 Assessment & Plan (1) Colitis: * With anemia. Hemoglobin reported to be 8.6 this AM at outside facility. * Repeat CBC, CMP now --> will transfuse if needed * Obs medical * Clear liquid diet for now * NPO after midnight * GI consulted -- spoke with Izabel Corona --> plan for possible small additional prep and will plan for colonoscopy in AM * T/s/c * Labs in AM (2) Anemia: * See above -- recently started on iron supplementation with vitamin C for iron def anemia, to be continued * CBC as above (3) Diarrhea: * Improved from discharge until recent colonoscopy prep --> continue zinc oxide for irriation, * Continue lactobacillus (4) Bilateral conjunctivitis: * Continue ofloxacin op (5) Internal hemorrhoids: * Hydrocortisone suppositories prn (6) Thrombocytosis: * Repeating labs as above -- likely secondary to acute viral cause. (7) S/P section: * 9 weeks post-. Did have hx pre-eclampsia with but no s/sx HELLP (8) DVT prophylaxis: * Ambulation encouraged * Chemoprophylaxis in setting of anemia/bleeding Dispo: for colonoscopy tomorrow with [facility] (9) Acute blood loss anemia: (10) Protein calorie malnutrition: History of Present Illness Chief Complaint: ANEMIA, GI BLEED Primary Care Provider: KEY Jaeger 39-year-old female 9 WKS week post () who presents to the ER at direction of provider at [facility] as she had originally been scheduled for a colonoscopy for GIB/hematochezia this morning and labs were drawn which showed hemoglobin of 8.6 in conjunction with her appearing very pale and was told that she would have to come to the hospital to have it done with that low of a hemoglobin. She states she was initially confused as she had previously opted to undergo outpatient scope instead of staying additional day to have while in the hospital, previously discharged on 05/13 for the same issue. She notes that she has had less bleeding and actually had a normal meal at home prior to starting her colonoscopy prep with miralax/colace/gatorade mixture but then does not that she has had increased blood in her stool as it has become liquid with the prep. States mild abdominal cramping/discomfort but denies need for anything for pain at this time. Slightly cold and states she believes room to be cold. She does endorse increased fatigue but she states that the colonoscopy prep whiped her out. Does endorse hemorrhoidal bleeding but states less clots than when she had initially come in on 05/10/20. Last BM this morning after prep and had slight amount of bleeding. No fevers, chills, chest pain, shortness of breath, palpitations, blurred vision, dysuria, hematuria at this time. Denies any use of alcohol since before . Denies NSAID or ASA use. ER Course: NSR 90-100bpm on monitor. Labs from [facility] with hemoglobin 8.6 earlier today. No further labs or imaging collected at this time. Allergies Allergy/AdvReac Type Severity Reaction Status Date / Time No Known Allergies Allergy Verified 05/15/20 12:47 Home Medications Home Medications Medication Instructions Recorded Confirmed Type breast pump #1 ea 03/14/20 05/10/20 Rx 1 tab PO QPM 05/10/20 05/15/20 History Lactobacillus acidoph-L.bulgar 4 tab PO QIDM 30 Days #360 tab 05/13/20 05/15/20 Rx [Floranex] ascorbic acid (vitamin C) [Vitamin 500 mg PO TID #90 tab 05/13/20 05/15/20 Rx C] ferrous sulfate 325 mg PO TID #90 tab 05/13/20 05/15/20 Rx hydrocortisone acetate [Anucort-HC] 25 mg DC BID PRN #12 ea 05/13/20 05/15/20 Rx ofloxacin 2 drp OPB QID 14 Days #10 ml 05/13/20 05/15/20 Rx zinc oxide [Boudreauxs Butt Paste] 1 applic EXT QID #2016 gm 05/13/20 05/15/20 Rx Past Med/Surg History Medical History Diet controlled gestational diabetes mellitus (GDM), antepartum Encounter for anatomic survey Evaluate anatomy not seen on prior sonogram Preeclampsia Rupture of membranes with meconium present Varicella Surgical History No pertinent past surgical history Family History Father Heart disease Diabetes Hypertension Hypercholesteremia Social History Smoking Status: Never smoker Second Hand Exposure: No; Do You Dip or Chew Tobacco: No; Tobacco Cessation Education Requested by Patient: No Hx Alcohol Use: No Hx Substance Use: No Preferred Language: Georgian Communication Ability: Effective Glost Tile Sorter Required: No Beliefs That Will Affect Care: None marital status: marital status details: Jennifer Lorenz (37) [phone] Current Living Situation: Spouse and Family Current Living Situation Comment: apartment with current occupational status: 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[employer] Other Information That Helps Us Care for You: No Feels Safe at Home: Yes Safety Concerns: Feels Safe At This Time Review of Systems Review of Systems: All systems reviewed & are unremarkable except as noted in HPI & below Constitutional: no fever and no chills Eyes: conjunctivitis Ear, Nose, Mouth, Throat: no sore throat and no dysphagia Respiratory: no cough and no dyspnea Cardiovascular: no chest pain, no palpitations and no edema Gastrointestinal: + abdominal pain ("discomfort"); no nausea (last night with prep but nothing since) and no vomiting Genitourinary: no dysuria and no hematuria Musculoskeletal: no problem reported Integumentary: no rash and no lesions Neurologic: no numbness and no paresthesia Psychiatric: frustration Endocrine: no cold intolerance and no heat intolerance Allergy / Immunological: no cough and no dyspnea Physical Exam Constitutional: well developed, cooperative and comfortable; no acute distress pale Eyes: + conjunctival abnormality (slightly erythematous), + anicteric sclerae and PERRL ENMT: Ears: no hearing impairment Nose: no external nose abnormality Neck: trachea midline, no thyromegaly Respiratory: normal respiratory effort, lungs clear to auscultation Cardiovascular: RRR, no murmur, no edema Gastrointestinal (Abdomen): normal bowel sounds, soft, nontender, no hepatosp lenomegaly Musculoskeletal: no cyanosis or clubbing, extremities motor strength 5/5 Skin: general pallor cool, dry Neurologic: patellar DTR's 2+ bilat, sensation intact and PERRL, EOMI, accommodation nl, no face palsy, no dysarthria Psychiatric: A+Ox3, euthymic affect Lymphatic: no cervical or axillary lymphadenopathy Results & Data Results & Data ([facility]) Vital Signs (Past 12 Hours) Vital Signs Temp Pulse Resp BP Pulse Ox 05/15/20 12:30 91 H 16 116/82 97 05/15/20 12:00 95 H 14 116/85 98 05/15/20 11:31 95 H 14 100 05/15/20 11:30 101 H 18 114/77 97 05/15/20 11:00 104 H 17 117/77 96 05/15/20 10:48 36.8 C 101 H 18 106/74 100 Supervising Physician Co-Signing Physician Notes Attending Attestation & Admit Note: Pt seen/examined, chart reviewed, care plan d/w STEFFI May. I agree w/ the julio components of her documentation. 39yo female - post- ~8-9 weeks ago - recent hospital stay for significant symptomatic anemia requiring PRBCs. Had nearly 3-gram drop in Hb from early March to early May. In late April/early May was having BRBPR and diarrhea. Then developed b/l conjunctivitis about 05/08/20. C diff and stool cx's were negative. Was to have outpatient colonoscopy today at [facility] but was felt too unsafe to have such and referred for admission to have the scope done as inpatient. During my assessment patient reports her eyes are NOT pruritic. She has significant discomfort and photophobia. PMH, PSH, allergies, meds, sochx, famhx - reviewed gen - NAD eyes - PERRL; +photophobia; scleral & conjunctival injection (severe); no drainage mouth - no ulcers heart - tachy, s1 s2 lungs - CTA b/l; no rales abd - soft NT no HSM ext - 1-2+ edema b/l labs - Hb 8.5 recent Fe studies, b12, folate noted albumin 1.3 c diff neg stool cx neg A/P: 1. acute blood loss anemia 2nd to lower GI bleeding/colitis 2. colitis on recent CT -- ulcerative colitis?? 3. b/l scleral/conjunctival injection -- uveitis?? history not c/w infectious conjunctivitis but still possible 4. 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 5. LE edema - in light of recent , hospitalization, etc - check dopplers, r/o DVT if negative -- likely due to #4 Tx 1 unit PRBCs tonight colonoscopy in am by Laurent GI would benefit from nutrition consult would benefit from ophtho consult especially if IBD is found tomorrow - this would suggest uveitis León Mccloud MD PG Care Time/CCT Total # of Minutes Spent Total Time Spent with Patient: Total time spent is greater than 50% in coordination of care (as documented) at patient's floor/unit and/or counseling patient: Coding Level of Care Code 24538 OBS Care - Level 3 Diagnoses Colitis K52.9 Anemia D64.9 Anemia type: unspecified type Diarrhea R19.7 Bilateral conjunctivitis H10.9 Internal hemorrhoids K64.8 Thrombocytosis D47.3 S/P section Z98.891 DVT prophylaxis Z29.9 Acute blood loss anemia D62 Protein calorie malnutrition E46 (1) Anemia Anemia type: unspecified type Qualified Code(s): D64.9 - Anemia, unspecified
--- NOTE | 2020-05-15 13:28 | Gastrointestinal Consultation ---
Date of Consultation May 15, 2020 Assessment & Plan (1) Diarrhea: (2) Anemia: (3) Rectal bleeding: Pt is a 39 y/o female, seen previously for anemia, diarrhea, rectal bleeding. She was set up to have colonoscopy eval this AM but cancelled due to be pale, tachycardic and fatigued. - Repeat labs to check blood ct, transfuse prn - CL diet ok today but keep NPO after midnight - Plan to perform colonoscopy tomorrow while inpt. No need to repeat bowel prep Supervising Physician Co-Signing Physician Notes Attending attestation I have seen, examined this patient, and agree with the findings and above by our mid-level provider KEY Covarrubias, with the following additions: - will plan on EGD/Colonoscopy tomorrow - Supportive care, IVF History of Present Illness Reason for Consultation: Eval for colonoscopy Requesting Physician: Dr. León Watson Attending Physician: Dr. Domingo Rayo History of Present Illness Pt is a 39 y/o female who was discharged from [facility] 2 days ago after hospitalization for anemia, diarrhea, and rectal bleeding. She was scheduled for output colonoscopy eval this AM at [facility] to r/o IBD. However procedure was cancelled as she was noted to be pale, tachycardic and feeling tired and she was referred to [facility] ED for further evaluation. Pt reports she was seeing blood tinged stools while prepping for her colo noscopy. Her last BM was this morning, liquid brown per her report. She denies abd pain, n/v, fever, chills. Allergies Allergy/AdvReac Type Severity Reaction Status Date / Time No Known Allergies Allergy Verified 05/15/20 12:47 Home Medications Home Medications Medication Instructions Recorded Confirmed Type breast pump #1 ea 03/14/20 05/10/20 Rx 1 tab PO QPM 05/10/20 05/15/20 History Lactobacillus acidoph-L.bulgar 4 tab PO QIDM 30 Days #360 tab 05/13/20 05/15/20 Rx [Floranex] ascorbic acid (vitamin C) [Vitamin 500 mg PO TID #90 tab 05/13/20 05/15/20 Rx C] ferrous sulfate 325 mg PO TID #90 tab 08/10/20 08/12/20 Rx hydrocortisone acetate [Anucort-HC] 25 mg NC BID PRN #12 ea 05/13/20 05/15/20 Rx ofloxacin 2 drp OPB QID 14 Days #10 ml 05/13/20 05/15/20 Rx zinc oxide [Boudreauxs Butt Paste] 1 applic EXT QID #2016 gm 05/13/20 05/15/20 Rx Patient History Medical History Diet controlled gestational diabetes mellitus (GDM), antepartum Encounter for anatomic survey Evaluate anatomy not seen on prior sonogram Preeclampsia Rupture of membranes with meconium present Varicella Surgical History No pertinent past surgical history Family History Father Heart disease Diabetes Hypertension Hypercholesteremia Social History Smoking Status: Never smoker Second Hand Exposure: No; Do You Dip or Chew Tobacco: No; Tobacco Cessation Education Requested by Patient: No Hx Alcohol Use: No Hx Substance Use: No Preferred Language: Macedonian Communication Ability: Effective Popcorn Machine Operator Required: No Beliefs That Will Affect Care: None marital status: marital status details: Jennifer Lorenz (37) [phone] Current Living Situation: Spouse and Family Current Living Situation Comment: apartment with current occupational status: 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[employer] Other Information That Helps Us Care for You: No Feels Safe at Home: Yes Safety Concerns: Feels Safe At This Time Review of Systems Review of Systems: All systems reviewed & are unremarkable except as noted in HPI & below Physical Exam Constitutional: well groomed, cooperative and comfortable Eyes: PERRL and EOM intact bilaterally bilateral conjunctivitis ENMT: external ear and nose normal, oropharynx normal Respiratory: normal respiratory effort, lungs clear to auscultation Cardiovascular: RRR, no murmur, no edema Gastrointestinal (Abdomen): normal bowel sounds, soft, nontender, no hepatosplenomegaly Skin: no rashes, warm and dry Psychiatric: A+Ox3, euthymic affect Lymphatic: no lymphedema Results & Data ([facility]) Vital Signs (Past 12 Hours) Vital Signs Temp Pulse Resp BP Pulse Ox 05/15/20 13:00 93 H 18 116/89 99 05/15/20 12:30 91 H 16 116/82 97 05/15/20 12:00 95 H 14 116/85 98 05/15/20 11:31 95 H 14 100 05/15/20 11:30 101 H 18 114/77 97 05/15/20 11:00 104 H 17 117/77 96 05/15/20 10:48 36.8 C 101 H 18 106/74 100 (1) Anemia Anemia type: unspecified type Qualified Code(s): D64.9 - Anemia, unspecified
[2020-05-15 13:59] LABS: Basophils # (auto) 0.01 K/uL (0-0.2); Basophils % (auto) 0.1 %; Eosinophils # (auto) 0.05 K/uL (0-0.5); Eosinophils % (auto) 0.6 %; Hemoglobin 8.3 g/dL (12.0-16.0); Immature Granulocytes # (auto) 0.04 K/uL (0.00-0.02); Immature Granulocytes % (auto) 0.5 %; Lymphocytes # (auto) 1.85 K/uL (1.2-3.4); Lymphocytes % (auto) 21.3 %; Mean Corpuscular Hemoglobin 25.5 pg (25-34); Mean Corpuscular Hgb Conc 30.7 g/dL (32-36); Mean Corpuscular Volume 82.8 fL (80-100); Mean Platelet Volume 8.1 fL (7.4-10.4); Monocytes # (auto) 0.59 K/uL (0.11-0.59); Monocytes % (auto) 6.8 %; Neutrophils # (auto) 6.16 K/uL (1.4-6.5); Neutrophils % (auto) 70.7 %; Platelet Count 728 K/uL (130-400); RDW Standard Deviation 54.7 fL (36.4-46.3); Red Blood Count 3.26 M/uL (4.2-5.4)
--- NOTE | 2020-05-15 14:09 | Emergency Department Note ---
History of Present Illness General Chief complaint: Referred by Doctor Time Seen by Provider: 05/15/20 11:33 Source: patient Mode of arrival: EMS Limitations: no limitations History of Present Illness Provider complaint: Anemia and tachycardia This is a 39-year-old female who presents to the ED with a chief complaint of being sent here for colonoscopy. The patient states that she was discharged from the hospital on Wednesday. She was here for anemia. The anemia is felt to be related to GI bleeding possibly from hemorrhoids. The patient received a blood transfusion while she was here and she was discharged on Wednesday. She was scheduled for an outpatient colonoscopy today. When she was evaluated by the anesthesia services, they did not want to do the colonoscopy because the patient was tachycardic and pale and Andrade and was feeling tired. The patient was sent here by ambulance. The patient has no other complaints at this time. The patient did have blood work this morning that showed her hemoglobin to be 8.6. When she was discharged, her hemoglobin was 8.1. Home Medications Home Medications Medication Instructions Recorded Confirmed Type breast pump #1 ea 03/14/20 05/10/20 Rx 1 tab PO QPM 05/10/20 05/15/20 History Lactobacillus acidoph-L.bulgar 4 tab PO QIDM 30 Days #360 tab 05/13/20 05/15/20 Rx [Floranex] ascorbic acid (vitamin C) [Vitamin 500 mg PO TID #90 tab 05/13/20 05/15/20 Rx C] ferrous sulfate 325 mg PO TID #90 tab 05/13/20 05/15/20 Rx hydrocortisone acetate [Anucort-HC] 25 mg VA BID PRN #12 ea 05/13/20 05/15/20 Rx ofloxacin 2 drp OPB QID 14 Days #10 ml 05/13/20 05/15/20 Rx zinc oxide [Boudreauxs Butt Paste] 1 applic EXT QID #2016 gm 05/13/20 05/15/20 Rx Allergies Allergy/AdvReac Type Severity Reaction Status Date / Time No Known Allergies Allergy Verified 05/15/20 12:47 Past Med/Surg History Medical History Diet controlled gestational diabetes mellitus (GDM), antepartum Encounter for anatomic survey Evaluate anatomy not seen on prior sonogram Preeclampsia Rupture of membranes with meconium present Varicella Surgical History No pertinent past surgical history Family History Father Heart disease Diabetes Hypertension Hypercholesteremia Social History Smoking Status: Never smoker Second Hand Exposure: No; Hx Alcohol Use: No Hx Substance Use: No Preferred Language: Slovak Communication Ability: Effective Carpet Mechanic Required: No Beliefs That Will Affect Care: None marital status: marital status details: Jennifer Lorenz (37) [phone] Current Living Situation: Spouse and Family Current Living Situation Comment: apartment with current occupational status: 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[employer] Feels Safe at Home: Yes Review of Systems A total of 10 systems reviewed and were otherwise negative Physical Exam Vital Signs Vital Signs - 24 hr 05/15/20 10:48 05/15/20 11:00 05/15/20 11:30 Temperature 36.8 C Temperature Source Oral Pulse Rate 101 H 104 H 101 H Pulse Rate from SpO2 Sensor 102 H Pulse Rhythm Regular Pulse Strength Normal Respiratory Rate 18 17 18 Respiratory Effort / Characteristics Non-Labored Spontaneous Respiratory Depth Normal Respiratory Pattern Regular Blood Pressure 106/74 117/77 114/77 Blood Pressure Mean 84 91 85 Pulse Oximetry 100 96 97 Oxygen Delivery Method Room Air Sepsis Recent Fever Within 48 Hours No Sepsis New/Unexplained Change in Mental Status N/A Sepsis Action Taken by Nursing No Action Required 05/15/20 11:31 05/15/20 12:00 05/15/20 12:30 Temperature Temperature Source Pulse Rate 95 H 95 H 91 H Pulse Rate from SpO2 Sensor 95 H Pulse Rhythm Pulse Strength Respiratory Rate 14 14 16 Respiratory Effort / Characteristics Respiratory Depth Respiratory Pattern Blood Pressure 116/85 116/82 Blood Pressure Mean 97 88 Pulse Oximetry 100 98 97 Oxygen Delivery Method Sepsis Recent Fever Within 48 Hours Sepsis New/Unexplained Change in Mental Status Sepsis Action Taken by Nursing 05/15/20 13:00 05/15/20 13:30 Temperature Temperature Source Pulse Rate 93 H 92 H Pulse Rate from SpO2 Sensor Pulse Rhythm Pulse Strength Respiratory Rate 18 19 Respiratory Effort / Characteristics Respiratory Depth Respiratory Pattern Blood Pressure 116/89 115/79 Blood Pressure Mean 98 96 Pulse Oximetry 99 95 Oxygen Delivery Method Sepsis Recent Fever Within 48 Hours Sepsis New/Unexplained Change in Mental Status Sepsis Action Taken by Nursing CONSTITUTIONAL/VITAL SIGNS: Reviewed / noted above. GENERAL: Non-toxic in appearance. INTEGUMENTARY: Warm, dry, and pale. HEAD: Normocephalic. EYES: without scleral icterus or trauma. ENT/OROPHARYNX: clear and moist. LYMPHADENOPATHY/NECK: Is supple without lymphadenopathy or meningismus. RESPIRATORY: Lungs clear and equal. CARDIOVASCULAR: Regular rate and rhythm. GI/ABDOMEN: Soft and nontender. No organomegaly or pulsatile mass. No rebound or guarding. Normal bowel sounds. EXTREMITIES: Warm and well perfused. BACK: No CVA tenderness. NEUROLOGICAL: Intact without focal deficits. PSYCHIATRIC: normal affect. MUSCULOSKELETAL: Normally developed with good muscle tone. TRIAGE NURSING DOCUMENTATION REVIEWED. Medical Decision Making Differential Diagnosis Differential includes acute coronary syndrome, myocardial infarction, CVA, TIA, anemia, infection, pneumonia, UTI, pyelonephritis, poor nutrition, dehydration, electrolyte disturbance,hypoglycemia. Medical Records Attestation: I reviewed the patient's medical records. Home Medications Current Medication List: was personally reviewed by me Laboratory Data Attestation: I reviewed the patient's lab results. Result diagrams: 05/15/20 13:36 05/15/20 13:36 Lab Results 05/15/20 Range/Units 13:36 WBC 8.70 (4.8-10.8) K/uL RBC 3.26 L (4.2-5.4) M/uL Hgb 8.3 L (12.0-16.0) g/dL Hct 27.0 L (37-47) % MCV 82.8 (80-100) fL MCH 25.5 (25-34) pg MCHC 30.7 L (32-36) g/dL RDW Std Deviation 54.7 H (36.4-46.3) fL RDW Coeff of Juan 18.0 H (11.5-14.5) % Plt Count 728 H (130-400) K/uL MPV 8.1 (7.4-10.4) fL Immature Gran % (Auto) 0.5 % Neut % (Auto) 70.7 % Lymph % (Auto) 21.3 % [place] % (Auto) 6.8 % Eos % (Auto) 0.6 % Baso % (Auto) 0.1 % Neut # (Auto) 6.16 (1.4-6.5) K/uL Lymph # (Auto) 1.85 (1.2-3.4) K/uL [place] # (Auto) 0.59 (0.11-0.59) K/uL Eos # (Auto) 0.05 (0-0.5) K/uL Baso # (Auto) 0.01 (0-0.2) K/uL Immature Gran # (Auto) 0.04 H (0.00-0.02) K/uL MDM Narrative Patient presents from outpatient colonoscopy to the emergency department for anemia, tachycardia, tiredness and continued symptoms. She will be seen by the hospitalist for further inpatient evaluation. Her hemoglobin today is 8.3. Impression & Plan Anemia, GI bleed Discharge Plan Visit Data Chief Complaint: Referred by Doctor ED Provider: Maldonado Jenkins Discharge Problem: Anemia, GI bleed Forms Stand Alone Forms: [facility] Prescriptions Prescriptions: No Action (DME) breast pump Device See Rx Instructions .ROUTE .MEDSUPPLY Qty: 1 RF: 0 28-800 mg-mcg Tablet 1 tab PO QPM RF: 0 ofloxacin 0.3 % Drops 2 drp OPB QID 14 Days Qty: 10 RF: 0 hydrocortisone acetate [Anucort-HC] 25 mg Suppository 25 mg VA BID PRN (Reason: hemorrhoids) Qty: 12 RF: 0 ferrous sulfate 325 mg (65 mg iron) Tablet,Delayed Release (Dr/Ec) 325 mg PO TID Qty: 90 RF: 0 Lactobacillus acidoph-L.bulgar [Floranex] 1 million cell Tablet 4 tab PO QIDM 30 Days Qty: 360 RF: 0 ascorbic acid (vitamin C) [Vitamin C] 500 mg Tablet 500 mg PO TID Qty: 90 RF: 0 Boudreauxs Butt Paste 16 % Ointment 1 applic EXT QID Qty: 2016 RF: 0 Referrals Referrals: Odilia Loja CRNP [Primary Care Provider] - Discharge Problem: Anemia Qualifiers: Anemia type: unspecified type Qualified Code(s): D64.9 - Anemia, unspecified GI bleed Qualifiers: GI bleed type/associated pathology: unspecified gastrointestinal hemorrhage type Qualified Code(s): K92.2 - Gastrointestinal hemorrhage, unspecified
[2020-05-15 14:22] LABS: Alanine Aminotransferase 28 U/L (12-78); Albumin Globulin Ratio 0.3 (0.9-2); Albumin Level 1.3 gm/dl (3.4-5.0); Alkaline Phosphatase 76 U/L (45-117); Aspartate Aminotransferase 58 U/L (15-37); BUN Creatinine Ratio 11.9 (10-20); Bilirubin,Total 0.3 mg/dl (0.2-1); Blood Urea Nitrogen 5 mg/dl (7-18); Calcium 7.8 mg/dl (8.5-10.1); Carbon Dioxide 27 mmol/L (21-32); Chloride 106 mmol/L (98-107); Creatinine Clr Calc Pharmacy 214.2 ml/min; Est GFR (African American) > 150.0; Globulin 4.7 gm/dl (2.5-4.0); Glucose 79 mg/dl (70-99); Potassium 3.3 mmol/L (3.5-5.1); Sodium 140 mmol/L (136-145)
--- NOTE | 2020-05-15 15:03 | Ultrasound Report ---
US venous doppler LE BI HISTORY: Pain. Edema. r/o DVT COMPARISON STUDY: None. FINDINGS: There is normal compressibility, flow, and augmentation within the bilateral lower extremit y deep venous systems. IMPRESSION: No DVT within the right or left lower extremity. ACT 112: Negative or not required by law. The above report was generated using voice recognition software. It may contain grammatical, syntax or spelling errors. Electronically signed by: Mike Tyson M.D. 05/15/2020 3:02 PM
[2020-05-15] MEDS ORDERED: ACETAMINOPHEN 325 MG TAB PO PRN (15:31)
[2020-05-15] MEDS ORDERED: SODIUM CHLORIDE 0.9% 250 ML IV PRN ×2 (15:31)
[2020-05-15] MEDS ORDERED: POLYETHYLENE (MIRALAX) 17 GM PACK PO PRN (15:31)
[2020-05-15] MEDS ORDERED: ALUMINUM/MAGNESIUM SUSP 30 ML UDC PO PRN (15:31)
[2020-05-15] MEDS ORDERED: MAGNESIUM HYDROXIDE SUSP 30 ML UDC PO PRN (15:31)
[2020-05-15] MEDS ORDERED: HYDROCORTISONE ACETATE 25 MG SUPP PR PRN (15:31)
[2020-05-15 16:12] LABS: Hematocrit (blood only) 26.3 % (37-47); Mean Corpuscular Hemoglobin 25.2 pg (25-34); Mean Corpuscular Hgb Conc 30.4 g/dL (32-36); Mean Platelet Volume 8.2 fL (7.4-10.4); Nucleated RBC # (auto) 0.03 K/uL (0-0); Nucleated RBC % (auto) 0.3 %; Platelet Count 686 K/uL (130-400); RDW Coefficient of Variation 18.1 % (11.5-14.5); RDW Standard Deviation 55.4 fL (36.4-46.3); Red Blood Count 3.17 M/uL (4.2-5.4); White Blood Count 8.33 K/uL (4.8-10.8)
[2020-05-15] MEDS: ASCORBIC ACID 500 MG TAB PO SCH ×2 (16:34→21:15)
[2020-05-15] MEDS: LACTOBACILLUS ACIDOPHILUS (FLORANEX) TAB PO SCH ×2 (16:34→21:16)
[2020-05-15] MEDS: OFLOXACIN 0.3% OP SOLN 5 ML BTL OPB SCH ×2 (16:35→21:16)
[2020-05-15] MEDS: FERROUS SULFATE 325 MG TAB PO SCH ×2 (16:35→21:14)
[2020-05-15] MEDS: BUTT PASTE (ZINC OXIDE 16%) 171 APPLN/57 GM JAR EXT SCH ×2 (16:37→21:15)
[2020-05-15] MEDS ORDERED: POTASSIUM CHLORIDE 20 MEQ TABCR PO STA (17:48)
[2020-05-15] MEDS: PRENATAL VITAMIN 1 TAB PO SCH (21:14)
[2020-05-16] MEDS: ONDANSETRON INJ 2 MG/ML 2 ML VIAL IV PRN (00:19)
[2020-05-16 05:46] LABS: Hematocrit (blood only) 30.2 % (37-47); Hemoglobin 9.1 g/dL (12.0-16.0); Mean Corpuscular Hemoglobin 25.1 pg (25-34); Mean Corpuscular Hgb Conc 30.1 g/dL (32-36); Mean Corpuscular Volume 83.4 fL (80-100); Mean Platelet Volume 8.1 fL (7.4-10.4); Platelet Count 684 K/uL (130-400); RDW Coefficient of Variation 17.3 % (11.5-14.5); RDW Standard Deviation 53.3 fL (36.4-46.3); Red Blood Count 3.62 M/uL (4.2-5.4); White Blood Count 8.26 K/uL (4.8-10.8)
[2020-05-16 06:12] LABS: Alanine Aminotransferase 25 U/L (12-78); Albumin Level 1.2 gm/dl (3.4-5.0); Aspartate Aminotransferase 48 U/L (15-37); BUN Creatinine Ratio 11.5 (10-20); Blood Urea Nitrogen 5 mg/dl (7-18); Calcium 7.8 mg/dl (8.5-10.1); Carbon Dioxide 27 mmol/L (21-32); Chloride 107 mmol/L (98-107); Creatinine Clr Calc Pharmacy 219.5 ml/min; Est GFR (African American) > 150.0; Est GFR (Non-African American) 133.1; Glucose 87 mg/dl (70-99); Potassium 3.6 mmol/L (3.5-5.1); Sodium 139 mmol/L (136-145)
[2020-05-16 06:22] LABS: Albumin Globulin Ratio 0.3 (0.9-2); Alkaline Phosphatase 69 U/L (45-117); Bilirubin,Total 0.2 mg/dl (0.2-1); Globulin 4.2 gm/dl (2.5-4.0); Total Protein 5.4 gm/dl (6.4-8.2)
[2020-05-16 06:23] LABS: Appearance Urine Cloudy (Clear); Bacteria Urine Automated 4+ (Negative); Blood Urine Trace (Negative); Color Urine Yellow; Glucose Urine UA Negative (Negative); Ketones Urine Negative (Negative); Leukocyte Esterase Urine 2+ (Negative); Nitrite Urine Positive (Negative); Protein Urine Trace (Negative); Specific Gravity Urine 1.018 (1.000-1.030); Urobilinogen Urine Negative (Negative); WBC Urine Automated >30 /hpf (0-5); pH Urine 6.5 (4.5-7.5)
[2020-05-16 06:44] LABS: Cast Urine Automated >30 /lpf (0-5)
[2020-05-16 06:53] LABS: Bilirubin Urine Negative (Negative)
--- NOTE | 2020-05-16 09:01 | Gastroenterology Progress Note ---
Date of Service May 16, 2020 Assessment & Plan (1) Diarrhea: (2) Anemia: (3) Rectal bleeding: Pt is a 39 y/o female, seen previously for anemia, diarrhea, rectal bleeding. She was set up to have colonoscopy eval yesterday but cancelled due to be pale, tachycardic and fatigued. Repeat blood ct showed similar anemia. H/H responded after 1U PRBC transfusion. She is currently scheduled for EGD/Colonoscopy eval today - Mild low grade temp overnight. ? possibly from transfusion reaction however will obtain blood cx to r/o infection - Monitor blood ct, transfuse prn - NPO for EGD/Colonoscopy evals today Admission and Anticipated Discharge Date Admission Date: May 15, 2020 Supervising Physician Co-Signing Physician Notes Attending attestation I have seen, examined this patient, and agree with the findings and above by our mid-level provider KEY Covarrubias, with the following additions: -Doing okay, no bleeding overnight, plan for EGD colonoscopy today Subjective Pt have loose stools overnight. Denies blood but reports stools are black. Denies abd pain, n/v. Noted mild temp 37.8C. She received 1U PRBC transfusion, Hgb 8->9 Review of Systems Review of Systems: All systems reviewed & are unremarkable except as noted in HPI & below Physical Exam Constitutional: well groomed, cooperative and comfortable Eyes: PERRL and EOM intact bilaterally conjunctivitis both eyes ENMT: external ear and nose normal, oropharynx normal Respiratory: normal respiratory effort, lungs clear to auscultation Cardiovascular: RRR, no murmur, no edema Gastrointestinal (Abdomen): normal bowel sounds, soft, nontender, no hepatosplenomegaly Skin: no rashes, warm and dry Psychiatric: A+Ox3, euthymic affect Lymphatic: no lymphedema Results & Data ([facility]) Vital Signs (Past 12 Hours) Vital Signs Temp Pulse Pulse Resp BP BP Pulse Ox 05/16/20 07:25 36.7 C 100 H 16 126/84 95 05/15/20 23:50 36.6 C 103 H 18 116/84 96 05/15/20 22:28 121/85 05/15/20 22:23 36.7 C 92 H 18 117/85 94 05/15/20 21:23 37 C 99 H 17 134/87 05/15/20 21:10 37.4 C 109 H 16 112/75 93 (1) Anemia Anemia type: unspecified type Qualified Code(s): D64.9 - Anemia, unspecified
[2020-05-16] MEDS ORDERED: cefTRIAXone SODIUM 1,000 MG in DEXTROSE 5% 50 ML IV SCH (09:15)
[2020-05-16] MEDS: LACTOBACILLUS ACIDOPHILUS (FLORANEX) TAB PO SCH ×4 (10:03→20:30)
[2020-05-16] MEDS: FERROUS SULFATE 325 MG TAB PO SCH ×3 (10:04→20:30)
[2020-05-16] MEDS: ASCORBIC ACID 500 MG TAB PO SCH ×3 (10:04→20:30)
[2020-05-16] MEDS: OFLOXACIN 0.3% OP SOLN 5 ML BTL OPB SCH ×2 (10:04→14:00)
[2020-05-16] MEDS: BUTT PASTE (ZINC OXIDE 16%) 171 APPLN/57 GM JAR EXT SCH ×4 (10:04→20:29)
[2020-05-16] MEDS: cefTRIAXone SODIUM 2,000 MG in DEXTROSE 5% 50 ML IV SCH (10:13)
[2020-05-16] MEDS ORDERED: PROPOFOL IV EMULSION 10 MG/ML 20 ML VIAL IV ONE (11:40)
[2020-05-16] MEDS ORDERED: LIDOCAINE HCL 2% 2 ML VIAL/AMP(20MG/ML) INFIL ONE (11:40)
--- NOTE | 2020-05-16 11:57 | Anesthesiology Consultation ---
Date of Service May 16, 2020 Assessment & Plan Chart Review Chart Review: Acceptable Risk for Surgery and Patient NOT seen in Pre Admission Testing Consults Requested none ASA ASA2 Proposed Anesthesia Anesthesia Type: MAC Risk / Benefits Reviewed With: PT / POA / Parent / Guardian, Accepts Plan and Informed Consent Obtained History Surgery Operation Date: 05/16/20 14:25 Proposed Procedures p Colonoscopy EGD Dr Girma Rayo Height/Weight Height: 5 ft 6 in Weight: 91.6 kg Allergies Allergy/AdvReac Type Severity Reaction Status Date / Time No Known Allergies Allergy Verified 05/16/20 12:02 Medications Home Medications Medication Instructions Recorded Confirmed Last Taken breast pump #1 ea 03/14/20 05/10/20 Unknown 1 tab PO QPM 05/10/20 05/15/20 Unknown Lactobacillus acidoph-L.bulgar 4 tab PO QIDM 30 Days #360 tab 05/13/20 05/15/20 Unknown [Floranex] ascorbic acid (vitamin C) [Vitamin 500 mg PO TID #90 tab 05/13/20 05/15/20 Unknown C] ferrous sulfate 325 mg PO TID #90 tab 05/13/20 05/15/20 Unknown hydrocortisone acetate [Anucort-HC] [address] BID PRN #12 ea 05/13/20 05/15/20 Unknown ofloxacin 2 drp OPB QID 14 Days #10 ml 05/13/20 05/15/20 Unknown zinc oxide [[place]s Butt Paste] 1 applic EXT QID #2016 gm 05/13/20 05/15/20 Unknown Active Medications Generic Name Dose Route Start Last Admin Trade Name Freq PRN Reason Stop Dose Admin Acetaminophen 650 mg 05/15/20 15:31 05/15/20 20:49 Acetaminophen 325 Mg Tab PO 06/14/20 15:30 650 mg Q4H PRN Administration pain/fever Ascorbic Acid 500 mg 05/15/20 15:31 05/16/20 10:04 Ascorbic Acid 500 Mg Tab PO 06/14/20 15:30 Not Given TID SRINIVAS Ferrous Sulfate 325 mg 05/15/20 15:31 05/16/20 10:04 Ferrous Sulfate 325 Mg Tab PO 06/14/20 15:30 Not Given TID SRINIVAS Ceftriaxone Sodium 2,000 mg/ 70 mls @ 140 mls/hr 05/16/20 09:15 05/16/20 10:13 Dextrose IV 05/26/20 09:14 140 mls/hr DAILY SRINIVAS Administration Protocol Lactobacillus Acidophilus 4 tab 05/15/20 17:00 05/16/20 10:03 Lactobacillus Acidophilus (Floranex) Tab PO 06/14/20 16:59 Not Given QIDM SRINIVAS Ofloxacin 2 drops 05/15/20 17:00 05/16/20 10:04 Ofloxacin 0.3% Op Soln 5 Ml Btl OPB 05/25/20 16:59 2 drops QID SRINIVAS Administration Ondansetron HCl 4 mg 05/15/20 15:31 05/16/20 00:19 Ondansetron Inj 2 Mg/Ml 2 Ml Vial IV 06/14/20 15:30 4 mg Q6H PRN Administration Nausea Petrolatum 1 appln 05/15/20 17:00 05/16/20 10:04 Butt Paste (Zinc Oxide 16%) 171 Appln/57 Gm Jar EXT 06/14/20 16:59 1 appln QID SRINIVAS Administration Prenat Multivit/[place]/Iron/Folic Ac 1 tab 05/15/20 21:00 05/15/20 21:14 Vitamin 1 Tab PO 06/14/20 20:59 1 tab QPM SRINIVAS Administration NPO Date Last Intake of Fluids: 05/15/20 Time Last Intake of Fluids: 22:00 Date Last Intake of Solids: 05/15/20 Time Last Intake of Solids: 22:00 Past Medical History Medical History Diet controlled gestational diabetes mellitus (GDM), antepartum Encounter for anatomic survey Evaluate anatomy not seen on prior sonogram Preeclampsia Rupture of membranes with meconium present Varicella Exercise / Class Metabolic Activity II 4-5 Yardwork/Stairs/Walk up hill Past Family History Family History Father Heart disease Diabetes Hypertension Hypercholesteremia Past Surgical History Surgical History No pertinent past surgical history Past Anesthesia History No Hx of Anesthesia Complications and No Family Hx of Anesthesia Complications History of PONV No Hx of Motion Sickness and History of PONV Social History Smoking Status: Never smoker Do You Dip or Chew Tobacco: No Hx Alcohol Use: No Hx Substance Use: No substance use type: does not use Review of Systems Negative for chest pain or shortness of breath. denies vomiting today. Physical Exam Vital Signs Last Vital Signs Temp 36.7 C 05/16/20 07:25 Pulse 100 H 05/16/20 07:25 Resp 16 05/16/20 07:25 BP 126/84 05/16/20 07:25 Pulse Ox 95 05/16/20 07:25 Constitutional + obese ENMT Mouth: + small oral opening; no TMJ abnormality Thyromental Distance: > or= 3.5 Finger Breadths Mallampati Class: II eyes are red and sensitive to light Neck normal visual inspection; neck extension not limited Respiratory normal respiratory effort Auscultation: lungs clear to auscultation bilaterally Cardiovascular Rate/Rhythm: regular rate and regular rhythm Heart Sounds: no murmur Neurologic moves all extremities Psychiatric Orientation: alert and oriented x 3 Testing Laboratory Results 05/16/20 05:24 05/16/20 05:24 Urine Color Yellow 05/16/20 06:10 Urine Appearance Cloudy (Clear) A 05/16/20 06:10 Urine pH 6.5 (4.5-7.5) 05/16/20 06:10 Ur Specific [place] 1.018 (1.000-1.030) 05/16/20 06:10 Urine Protein Trace (Negative) H 05/16/20 06:10 Urine Glucose (UA) Negative (Negative) 05/16/20 06:10 Urine Ketones Negative (Negative) 05/16/20 06:10 Urine Nitrite Positive (Negative) A 05/16/20 06:10 Ur Leukocyte Esterase 2+ (Negative) H 05/16/20 06:10 Urine WBC (Auto) >30 /hpf (0-5) H 05/16/20 06:10 Urine RBC (Auto) 5-10 /hpf (0-4) H 05/16/20 06:10 U Hyaline Cast (Auto) >30 /lpf (0-5) H 05/16/20 06:10 U Epithel Cells (Auto) 10-20 /lpf (0-5) H 05/16/20 06:10 Urine Bacteria (Auto) 4+ (Negative) H 05/16/20 06:10 Blood Type A Positive 05/15/20 16:04 Antibody Screen NEGATIVE 05/15/20 16:04
[2020-05-16 12:22] LABS: Pregnancy Test, Serum Negative (Negative)
--- NOTE | 2020-05-16 12:30 | Hospitalist Progress Note ---
Date of Service May 16, 2020 Assessment & Plan (1) Colitis: * With anemia. Hemoglobin reported to be 8.6 AM of scheduled outpatient scope and sent to ER for generalized pallor, tachycardia and anemia. * Transfused 1 unit 05/15 for hemoglobin 8.0 with improvement to 9.1 on AM labs * GI consulted -- appreciate assistance * EGD with non-bleeding esophageal ulcer, biopsied --> PPI BID x 2 months and repeat EGD 6-8 wks for resolution recommended * Colonoscopy with congested, erythematous and ulcerated mucosa in entire examined colon, likely UC --Rec daily KUB to r/o megacolon, ESR, CRP, quatiferon gold, CXR, Hepatitis B serologies. Ordered. GI added mesalamine 2400mg BID * Labs in AM (2) Anemia: * See above -- recently started on iron supplementation with vitamin C for iron def anemia, to be continued * CBC as above (3) Diarrhea: * Improved from discharge until recent colonoscopy prep --> continue zinc oxide for irriation, * Continue lactobacillus (4) Bilateral conjunctivitis: * Continue ofloxacin op --> will utilize prednisolone as likely uveitis given likely UC * needs JUAN CARLOS referral to Ophthalmology after discharge (5) Internal hemorrhoids: * Hydrocortisone suppositories prn (6) Thrombocytosis: * Repeating labs as above -- likely reactive given above --> platelets currently about the same as last night but down from 728 on admission to 684 * Continue to trend (7) S/P section: * 9 weeks post-. Did have hx pre-eclampsia with but no s/sx HELLP (8) Protein calorie malnutrition: secondary to inflammatory bowel (9) Acute blood loss anemia: * secondary to #1 (10) DVT prophylaxis: * Ambulation encouraged * SCDs * Chemoprophylaxis in setting of active bleeding Changed to full admission Dispo: awaiting biopsies from colonoscopy but will likely need IV steroids Admission and Anticipated Discharge Date Admission Date: May 15, 2020 Supervising Physician Co-Signing Physician Notes STEFFI Supervision Note: I did not personally see or examine the patient today, but I verified all julio points of STEFFI May's assessment and plan with the following exceptions/additions: None Subjective Patient evaluated this afternoon. Went down for EGD this AM that showed non-bleeding esophageal ulcer however colonoscopy with congested, erythematous and ulcerated mucosa of entire colon examined. Likely looking like UC but awaiting biopsies. Patient admits to continued fatigue and some nausea, nausea has since passed. Denies any dysuria or hematuria, flank or back pain. Has noted having multiple trips to bathroom for darkened/black foul smelling liquid diarrhea. Denies fever, chills currently but did have a slight temperature last evening. Discussed that it appears she may have UTI/pyelo and we will continue IV abx until specific pathogen isolated and can transition to oral abx. Questions/concerns answered at this time. Repeat labs in AM and possible need for IV steroids. Review of Systems Review of Systems: All systems reviewed & are unremarkable except as noted in HPI & below Physical Exam Constitutional: well developed, + ill appearing and cooperative; no acute distress general pallor Eyes: + conjunctival abnormality (slightly erythematous), + anicteric sclerae and PERRL ENMT: Ears: no hearing impairment Nose: no external nose abnormality dry mm Neck: trachea midline, no thyromegaly Respiratory: normal respiratory effort, lungs clear to auscultation Cardiovascular: RRR, no murmur, no edema Gastrointestinal (Abdomen): normal bowel sounds, soft, nontender, no hepatosplenomegaly Musculoskeletal: no cyanosis or clubbing, extremities motor strength 5/5 Neurologic: patellar DTR's 2+ bilat, sensation intact and PERRL, EOMI, accommodation nl, no face palsy, no dysarthria Psychiatric: Orientation: alert and oriented x 3 Lymphatic: no cervical or axillary lymphadenopathy Results & Data Results & Data ([facility]) Vital Signs (Past 12 Hours) Vital Signs Temp Pulse Resp BP Pulse Ox 05/16/20 11:52 36.6 C 95 H 18 121/86 98 05/16/20 07:25 36.7 C 100 H 16 126/84 95 Laboratory Results 05/16/20 05/16/20 05/16/20 Range/Units 11:33 06:10 05:24 WBC (4.8-10.8) K/uL RBC (4.2-5.4) M/uL Hgb (12.0-16.0) g/dL Hct (37-47) % MCV (80-100) fL MCH (25-34) pg MCHC (32-36) g/dL RDW Std Deviation (36.4-46.3) fL RDW Coeff of Juan (11.5-14.5) % Plt Count (130-400) K/uL MPV (7.4-10.4) fL Immature Gran % (Auto) % Neut % (Auto) % Lymph % (Auto) % [place] % (Auto) % Eos % (Auto) % Baso % (Auto) % Neut # (Auto) (1.4-6.5) K/uL Lymph # (Auto) (1.2-3.4) K/uL [place] # (Auto) (0.11-0.59) K/uL Eos # (Auto) (0-0.5) K/uL Baso # (Auto) (0-0.2) K/uL Immature Gran # (Auto) (0.00-0.02) K/uL Absolute Nucleated RBC (0-0) K/uL Nucleated RBC % (auto) % Sodium 139 (136-145) mmol/L Potassium 3.6 (3.5-5.1) mmol/L Chloride 107 (98-107) mmol/L Carbon Dioxide 27 (21-32) mmol/L Anion Gap 5.0 (3-11) BUN 5 L (7-18) mg/dl Creatinine 0.40 L (0.6-1.2) mg/dl Est Cr Clr Drug Dosing 219.5 ml/min Est GFR ( Amer) > 150.0 Est GFR (Non-Af Amer) 133.1 BUN/Creatinine Ratio 11.5 (10-20) Glucose 87 (70-99) mg/dl Calcium 7.8 L (8.5-10.1) mg/dl Total Bilirubin 0.2 (0.2-1) mg/dl AST 48 H (15-37) U/L ALT 25 (12-78) U/L Alkaline Phosphatase 69 (45-117) U/L Total Protein 5.4 L (6.4-8.2) gm/dl Albumin 1.2 L (3.4-5.0) gm/dl Globulin 4.2 H (2.5-4.0) gm/dl Albumin/Globulin Ratio 0.3 L (0.9-2) TSH 1.110 (0.300-4.500) uIu/ml HCG, Qual Negative (Negative) Urine Color Yellow Urine Appearance Cloudy A (Clear) Urine pH 6.5 (4.5-7.5) Ur Specific [place] 1.018 (1.000-1.030) Urine Protein Trace H (Negative) Urine Glucose (UA) Negative (Negative) Urine Ketones Negative (Negative) Urine Blood Trace H (Negative) Urine Nitrite Positive A (Negative) Urine Bilirubin Negative (Negative) Urine Urobilinogen Negative (Negative) Ur Leukocyte Esterase 2+ H (Negative) Urine WBC (Auto) >30 H (0-5) /hpf Urine RBC (Auto) 5-10 H (0-4) /hpf U Hyaline Cast (Auto) >30 H (0-5) /lpf U Epithel Cells (Auto) 10-20 H (0-5) /lpf Urine Bacteria (Auto) 4+ H (Negative) WBC Casts 1-5 H (0) /lpf Blood Type Antibody Screen Crossmatch 05/16/20 05/15/20 05/15/20 Range/Units 05:24 16:04 16:04 WBC 8.26 8.33 (4.8-10.8) K/uL RBC 3.62 L 3.17 L (4.2-5.4) M/uL Hgb 9.1 L 8.0 L (12.0-16.0) g/dL Hct 30.2 L 26.3 L (37-47) % MCV 83.4 83.0 (80-100) fL MCH 25.1 25.2 (25-34) pg MCHC 30.1 L 30.4 L (32-36) g/dL RDW Std Deviation 53.3 H 55.4 H (36.4-46.3) fL RDW Coeff of Juan 17.3 H 18.1 H (11.5-14.5) % Plt Count 684 H 686 H (130-400) K/uL MPV 8.1 8.2 (7.4-10.4) fL Immature Gran % (Auto) % Neut % (Auto) % Lymph % (Auto) % [place] % (Auto) % Eos % (Auto) % Baso % (Auto) % Neut # (Auto) (1.4-6.5) K/uL Lymph # (Auto) (1.2-3.4) K/uL [place] # (Auto) (0.11-0.59) K/uL Eos # (Auto) (0-0.5) K/uL Baso # (Auto) (0-0.2) K/uL Immature Gran # (Auto) (0.00-0.02) K/uL Absolute Nucleated RBC 0.03 H (0-0) K/uL Nucleated RBC % (auto) 0.3 % Sodium (136-145) mmol/L Potassium (3.5-5.1) mmol/L Chloride (98-107) mmol/L Carbon Dioxide (21-32) mmol/L Anion Gap (3-11) BUN (7-18) mg/dl Creatinine (0.6-1.2) mg/dl Est Cr Clr Drug Dosing ml/min Est GFR ( Amer) Est GFR (Non-Af Amer) BUN/Creatinine Ratio (10-20) Glucose (70-99) mg/dl Calcium (8.5-10.1) mg/dl Total Bilirubin (0.2-1) mg/dl AST (15-37) U/L ALT (12-78) U/L Alkaline Phosphatase (45-117) U/L Total Protein (6.4-8.2) gm/dl Albumin (3.4-5.0) gm/dl Globulin (2.5-4.0) gm/dl Albumin/Globulin Ratio (0.9-2) TSH (0.300-4.500) uIu/ml HCG, Qual (Negative) Urine Color Urine Appearance (Clear) Urine pH (4.5-7.5) Ur Specific [place] (1.000-1.030) Urine Protein (Negative) Urine Glucose (UA) (Negative) Urine Ketones (Negative) Urine Blood (Negative) Urine Nitrite (Negative) Urine Bilirubin (Negative) Urine Urobilinogen (Negative) Ur Leukocyte Esterase (Negative) Urine WBC (Auto) (0-5) /hpf Urine RBC (Auto) (0-4) /hpf U Hyaline Cast (Auto) (0-5) /lpf U Epithel Cells (Auto) (0-5) /lpf Urine Bacteria (Auto) (Negative) WBC Casts (0) /lpf Blood Type A Positive Antibody Screen NEGATIVE Crossmatch See Detail 05/15/20 05/15/20 Range/Units 13:36 13:36 WBC 8.70 (4.8-10.8) K/uL RBC 3.26 L (4.2-5.4) M/uL Hgb 8.3 L (12.0-16.0) g/dL Hct 27.0 L (37-47) % MCV 82.8 (80-100) fL MCH 25.5 (25-34) pg MCHC 30.7 L (32-36) g/dL RDW Std Deviation 54.7 H (36.4-46.3) fL RDW Coeff of Juan 18.0 H (11.5-14.5) % Plt Count 728 H (130-400) K/uL MPV 8.1 (7.4-10.4) fL Immature Gran % (Auto) 0.5 % Neut % (Auto) 70.7 % Lymph % (Auto) 21.3 % [place] % (Auto) 6.8 % Eos % (Auto) 0.6 % Baso % (Auto) 0.1 % Neut # (Auto) 6.16 (1.4-6.5) K/uL Lymph # (Auto) 1.85 (1.2-3.4) K/uL [place] # (Auto) 0.59 (0.11-0.59) K/uL Eos # (Auto) 0.05 (0-0.5) K/uL Baso # (Auto) 0.01 (0-0.2) K/uL Immature Gran # (Auto) 0.04 H (0.00-0.02) K/uL Absolute Nucleated RBC (0-0) K/uL Nucleated RBC % (auto) % Sodium 140 (136-145) mmol/L Potassium 3.3 L (3.5-5.1) mmol/L Chloride 106 (98-107) mmol/L Carbon Dioxide 27 (21-32) mmol/L Anion Gap 7.0 (3-11) BUN 5 L (7-18) mg/dl Creatinine 0.41 L (0.6-1.2) mg/dl Est Cr Clr Drug Dosing 214.2 ml/min Est GFR ( Amer) > 150.0 Est GFR (Non-Af Amer) 132.0 BUN/Creatinine Ratio 11.9 (10-20) Glucose 79 (70-99) mg/dl Calcium 7.8 L (8.5-10.1) mg/dl Total Bilirubin 0.3 (0.2-1) mg/dl AST 58 H (15-37) U/L ALT 28 (12-78) U/L Alkaline Phosphatase 76 (45-117) U/L Total Protein 6.0 L (6.4-8.2) gm/dl Albumin 1.3 L (3.4-5.0) gm/dl Globulin 4.7 H (2.5-4.0) gm/dl Albumin/Globulin Ratio 0.3 L (0.9-2) TSH (0.300-4.500) uIu/ml HCG, Qual (Negative) Urine Color Urine Appearance (Clear) Urine pH (4.5-7.5) Ur Specific [place] (1.000-1.030) Urine Protein (Negative) Urine Glucose (UA) (Negative) Urine Ketones (Negative) Urine Blood (Negative) Urine Nitrite (Negative) Urine Bilirubin (Negative) Urine Urobilinogen (Negative) Ur Leukocyte Esterase (Negative) Urine WBC (Auto) (0-5) /hpf Urine RBC (Auto) (0-4) /hpf U Hyaline Cast (Auto) (0-5) /lpf U Epithel Cells (Auto) (0-5) /lpf Urine Bacteria (Auto) (Negative) WBC Casts (0) /lpf Blood Type Antibody Screen Crossmatch PG Care Time/CCT Total # of Minutes Spent Total Time Spent with Patient: Total time spent is greater than 50% in coordination of care (as documented) at patient's floor/unit and/or counseling patient: Coding Level of Care Code 57209 Subseq Hosp Care Lvl 3 Diagnoses Colitis K52.9 Anemia D64.9 Anemia type: unspecified type Diarrhea R19.7 Bilateral conjunctivitis H10.9 Internal hemorrhoids K64.8 Thrombocytosis D47.3 S/P section Z98.891 Protein calorie malnutrition E46 Acute blood loss anemia D62 DVT prophylaxis Z29.9 (1) Anemia Anemia type: unspecified type Qualified Code(s): D64.9 - Anemia, unspecified
[2020-05-16] MEDS ORDERED: ONDANSETRON INJ 2 MG/ML 2 ML VIAL ONE (13:02)
--- NOTE | 2020-05-16 13:09 | GI REPORT ---
Patient Name: Bianca Rodgers Procedure Date: 05/16/2020 11:56 AM Date of : 1980 Admit Type: Inpatient Age: 39 Gender: Female Attending MD: Domingo Rayo MD Procedure: Upper GI endoscopy Providers: Domingo Rayo MD Referring MD: Efrain Tanner MD, Odilia Loja Indications: Diarrhea Medicines: Monitored Anesthesia Care Complications: No immediate complications. Estimated blood loss: None. Estimated Blood Loss: Estimated blood loss: none. Procedure: Pre-Anesthesia Assessment: - Pre-Anesthesia Assessment: - Prior to the procedure, a History and Physical was performed, and patient medications, allergies and sensitivities were reviewed. The patient's tolerance of previous anesthesia was reviewed. Please see [facility] for complete details. - The risks and benefits of the procedure and the sedation options and risks were discussed with the patient. All questions were answered and informed consent was obtained. - Patient identification and proposed procedure were verified prior to the procedure by the physician and the nurse. The procedure was verified in the pre-procedure area in the procedure room. After obtaining informed consent, the endoscope was passed carefully and meticuously under direct vision and only advanced when the lumen was clearly identified, C02 insuflation was utilized throughout the entirity of the procedure. Throughout the procedure, the patient's blood pressure, pulse, and oxygen saturations were monitored continuously. After obtaining informed consent, the endoscope was passed under direct vision. Throughout the procedure, the patient's blood pressure, pulse, and oxygen saturations were monitored continuously. The Scope was introduced through the mouth, and advanced to the second part of duodenum. The upper GI endoscopy was accomplished without difficulty. The patient tolerated the procedure fairly well. Findings: One cratered esophageal ulcer with no bleeding and no stigmata of recent bleeding was found. Biopsies were taken with a cold forceps for histology. The entire examined stomach was normal. Biopsies were taken with a cold forceps for histology. The examined duodenum was normal. Biopsies for histology were taken with a cold forceps for evaluation of celiac disease. Impression: - Non-bleeding esophageal ulcer. Biopsied. - Normal stomach. Biopsied. - Normal examined duodenum. Biopsied. Recommendation: - Await pathology results. - Perform a colonoscopy today. - PPI BID twice daily for 2 months, repeat EGD in 6-8 wks to ensure healing Domingo Rayo MD 05/16/2020 1:08:25 PM This report has been signed electronically. Note Initiated On: 05/16/2020 11:56 AM Number of Addenda: 0 I attest to the content of the Intraoperative Record and orders documented therein, exceptions below {[id number]}
--- NOTE | 2020-05-16 13:14 | GI REPORT ---
Patient Name: Bianca Rodgers Procedure Date: 05/16/2020 11:55 AM Date of : 1980 Admit Type: Inpatient Age: 39 Gender: Female Attending MD: Domingo Rayo MD Procedure: Colonoscopy Providers: Domingo Rayo MD Referring MD: Efrain Tanner MD, Odilia Loja Indications: Chronic diarrhea, Rectal bleeding Medicines: Monitored Anesthesia Care Complications: No immediate complications. Estimated blood loss: None. Estimated Blood Loss: Estimated blood loss: none. Procedure: Pre-Anesthesia Assessment: - Pre-Anesthesia Assessment: - Prior to the procedure, a History and Physical was performed, and patient medications, allergies and sensitivities were reviewed. The patient's tolerance of previous anesthesia was reviewed. Please see [facility]MS[facility] for complete details. - The risks and benefits of the procedure and the sedation options and risks were discussed with the patient. All questions were answered and informed consent was obtained. - Patient identification and proposed procedure were verified prior to the procedure by the physician and the nurse. The procedure was verified in the pre-procedure area in the procedure room. After obtaining informed consent, the endoscope was passed carefully and meticuously under direct vision and only advanced when the lumen was clearly identified, C02 insuflation was utilized throughout the entirity of the procedure. Throughout the procedure, the patient's blood pressure, pulse, and oxygen saturations were monitored continuously. After I obtained informed consent, the scope was passed under direct vision. Throughout the procedure, the patient's blood pressure, pulse, and oxygen saturations were monitored continuously. The scope was introduced through the anus and advanced to the cecum, identified by appendiceal orifice and ileocecal valve. The colonoscopy was performed without difficulty. The patient tolerated the procedure well. The quality of the bowel preparation was poor. Findings: A diffuse area of severely congested, erythematous and ulcerated mucosa was found in the entire colon. Biopsies were taken with a cold forceps for histology. Fluid aspiration was performed through the scope suction channel. Sample(s) were sent for bacterial cultures, Clostridium difficile and ova and parasites. Appearances concerning for severe ulcerative colitis Impression: - Preparation of the colon was poor. - Congested, erythematous and ulcerated mucosa in the entire examined colon. Biopsied. - Fluid aspiration was performed. Recommendation: - [facility] patient [facility] care. - Follow stool studies, will await pathology and stool eval, but likely will need IV steroids. Daily KUBs to rule out megacolon. - ESR, CRP, quanteferon gold, CXR, Hepatitis B serolgies Domingo Rayo MD 05/16/2020 1:13:50 PM This report has been signed electronically. Note Initiated On: 05/16/2020 11:55 AM Number of Addenda: 0 I attest to the content of the Intraoperative Record and orders documented therein, exceptions below {[id number]}
--- NOTE | 2020-05-16 13:35 | Anesthesiology Progress Note ---
Date of Service May 16, 2020 Anesthesia Post Procedure Vital Signs Vital Signs: Temp Pulse Pulse Resp BP BP Pulse Ox 05/16/20 13:21 97 H 16 101/72 97 05/16/20 13:08 36.8 C 102 H 18 104/57 L 95 05/16/20 11:52 36.6 C 95 H 18 121/86 98 05/16/20 07:25 36.7 C 100 H 16 126/84 95 05/15/20 23:50 36.6 C 103 H 18 116/84 96 05/15/20 22:28 121/85 05/15/20 22:23 36.7 C 92 H 18 117/85 94 05/15/20 21:23 37 C 99 H 17 134/87 05/15/20 21:10 37.4 C 109 H 16 112/75 93 05/15/20 20:55 37.0 C 114 H 18 112/77 95 05/15/20 20:38 37.8 C H 114 H 18 114/78 94 05/15/20 20:19 37.1 C 119 H 18 98/58 L 97 05/15/20 15:00 36.9 C 119 H 20 113/71 100 05/15/20 14:00 90 15 121/81 94 Transfer of Care Handoff Completed per policy Notes Mental Status: alert / awake / arousable and participated in evaluation Nausea / Vomiting: adequately controlled Pain: adequately controlled Airway Patency, RR, SpO2: stable & adequate BP & HR: stable & adequate Hydration State: stable & adequate Anesthetic Complications: no major complications apparent and Pt Satisfied with anesthetic care
[2020-05-16 16:38] LABS: Hepatitis B Surface Ab Quant < 3.10 mIU/mL (>or=10mIU/mL Immune); Hepatitis B Surface Antibody Non-Immune
[2020-05-16 16:49] LABS: Hepatitis B Surface Antigen Neg (Neg)
[2020-05-16] MEDS: methylPREDNISolone 20 MG in SYRINGE 0 ML IV SCH ×2 (18:16→23:43)
--- NOTE | 2020-05-16 19:00 | XRay Report ---
XR chest 2V PA/lateral HISTORY: anemia, UC COMPARISON: Chest 05/10/2020. FINDINGS: The lungs are clear. Cardiac silhouette is normal in size. No pleural effusions. No pneumot horax. Ahaustral appearance to the descending colon and splenic flexure of the colon consistent with the patient's history of a colitis. IMPRESSION: No acute process. Colonic wall thickening again noted. ACT 112: Negative or not required by law. Electronically signed by: Rashaun Martin M.D. 05/16/2020 6:59 PM
[2020-05-16 19:45] LABS: Hematocrit (blood only) 28.6 % (37-47); Hemoglobin 8.9 g/dL (12.0-16.0); Mean Corpuscular Hemoglobin 25.8 pg (25-34); Mean Corpuscular Hgb Conc 31.1 g/dL (32-36); Mean Corpuscular Volume 82.9 fL (80-100); Mean Platelet Volume 7.9 fL (7.4-10.4); Platelet Count 664 K/uL (130-400); RDW Coefficient of Variation 17.5 % (11.5-14.5); RDW Standard Deviation 53.1 fL (36.4-46.3); Red Blood Count 3.45 M/uL (4.2-5.4); White Blood Count 10.01 K/uL (4.8-10.8)
[2020-05-16] MEDS: PRENATAL VITAMIN 1 TAB PO SCH (20:30)
[2020-05-16] MEDS: PANTOprazole 40 MG TAB PO SCH (20:30)
[2020-05-16] MEDS: prednisoLONE acetate 1% OP SUSP 5 ML BTL OP SCH (20:30)
[2020-05-16] MEDS: MESALAMINE 800 MG TABCR PO SCH (20:31)
[2020-05-17] MEDS: ONDANSETRON INJ 2 MG/ML 2 ML VIAL IV PRN ×2 (03:13→07:59)
[2020-05-17 06:34] LABS: Hematocrit (blood only) 28.9 % (37-47); Mean Corpuscular Hemoglobin 25.8 pg (25-34); Mean Corpuscular Hgb Conc 31.1 g/dL (32-36); Mean Corpuscular Volume 82.8 fL (80-100); Mean Platelet Volume 8.2 fL (7.4-10.4); Platelet Count 692 K/uL (130-400); RDW Coefficient of Variation 17.4 % (11.5-14.5); RDW Standard Deviation 52.8 fL (36.4-46.3); Red Blood Count 3.49 M/uL (4.2-5.4); White Blood Count 7.79 K/uL (4.8-10.8)
[2020-05-17 07:10] LABS: Alanine Aminotransferase 19 U/L (12-78); Albumin Level 1.2 gm/dl (3.4-5.0); Aspartate Aminotransferase 38 U/L (15-37); BUN Creatinine Ratio 12.4 (10-20); Blood Urea Nitrogen 4 mg/dl (7-18); Calcium 7.6 mg/dl (8.5-10.1); Carbon Dioxide 25 mmol/L (21-32); Chloride 107 mmol/L (98-107); Creatinine Clr Calc Pharmacy 250.9 ml/min; Est GFR (African American) > 150.0; Glucose 125 mg/dl (70-99); Potassium 3.9 mmol/L (3.5-5.1); Sodium 139 mmol/L (136-145)
[2020-05-17 07:11] LABS: Albumin Globulin Ratio 0.3 (0.9-2); Alkaline Phosphatase 69 U/L (45-117); Bilirubin,Total 0.2 mg/dl (0.2-1); Globulin 4.4 gm/dl (2.5-4.0); Total Protein 5.6 gm/dl (6.4-8.2)
--- NOTE | 2020-05-17 07:51 | Anesthesiology Progress Note ---
Date of Service May 17, 2020 Anesthesia Post Procedure Vital Signs Vital Signs: Temp Pulse Pulse Resp BP Pulse Ox 05/17/20 07:14 36.6 C 85 16 110/74 99 05/17/20 03:12 36.4 C L 79 16 131/87 96 05/16/20 23:13 36.6 C 91 H 16 119/80 95 05/16/20 15:11 36.5 C 100 H 16 124/84 97 05/16/20 14:04 36.5 C 97 H 20 123/77 97 05/16/20 13:35 97 H 16 117/73 97 05/16/20 13:21 97 H 16 101/72 97 05/16/20 13:08 36.8 C 102 H 18 104/57 L 95 05/16/20 11:52 36.6 C 95 H 18 121/86 98 Notes Mental Status: alert / awake / arousable and participated in evaluation Patient Amnestic to Procedure: Yes Nausea / Vomiting: adequately controlled Pain: adequately controlled Airway Patency, RR, SpO2: stable & adequate BP & HR: stable & adequate Hydration State: stable & adequate Anesthetic Complications: no major complications apparent and Pt Satisfied with anesthetic care
[2020-05-17] MEDS: LACTOBACILLUS ACIDOPHILUS (FLORANEX) TAB PO SCH ×4 (07:56→20:15)
[2020-05-17] MEDS: methylPREDNISolone 20 MG in SYRINGE 0 ML IV SCH ×3 (07:56→20:11)
[2020-05-17] MEDS: BUTT PASTE (ZINC OXIDE 16%) 171 APPLN/57 GM JAR EXT SCH ×4 (08:42→20:14)
[2020-05-17] MEDS: prednisoLONE acetate 1% OP SUSP 5 ML BTL OP SCH ×3 (08:45→22:10)
[2020-05-17] MEDS: cefTRIAXone SODIUM 2,000 MG in DEXTROSE 5% 50 ML IV SCH (08:53)
[2020-05-17] MEDS: MESALAMINE 800 MG TABCR PO SCH ×2 (10:06→20:16)
[2020-05-17] MEDS: PANTOprazole 40 MG TAB PO SCH ×2 (10:07→20:15)
--- NOTE | 2020-05-17 10:17 | Gastroenterology Progress Note ---
Date of Service May 17, 2020 Assessment & Plan (1) Diarrhea: (2) Anemia: (3) Rectal bleeding: Pt is a 39 y/o female, seen previously for anemia, diarrhea, rectal bleeding. Underwent EGD/colonoscopy evals on 05/16. EGD showed esophageal ulcer (? pill), colonoscopys suspicious for UC. She continues to have diarrhea, less rectal bleeding. + n/v last night and this AM. - Monitor blood ct and transfuse prn - Increase steroids: Methylprednisolone 20mg q6hr - Mesalamines 2.4g BID - Awaiting Hep B serologies and TB quant gold for possible TNF start - Sips of CL for now. Sales Representative Cash Registers consult for dietary supplements given poor nutritional status (low albumin) - Protonix 40mg BID x 6-8 weeks, then once daily; repeat EGD in 8 week's time to re-eval ulcer - Will coordinate GI f/u upon pt's DC - Symptomatic management w antiemetics (scheduled Zofran) Admission and Anticipated Discharge Date Admission Date: May 16, 2020 Supervising Physician Co-Signing Physician Notes Attending attestation I have seen, examined this patient, and agree with the findings and above by our mid-level provider KEY Covarrubias, with the following additions: - New diagnosis of severe UC - Has worrrisome concerns for uveitis - IV steroids - Encourage nutrition - PPN consult given poor nutrition - Biologic start as soon as possible - If worsens will need tx to tertiary center - If has any worsening abdominal pain, fever, chills, obtain abdominal imaging to r/o toxic megacolon. If present transfer for colorectal opinion Subjective Pt had n/v last night and this AM. Stools brown loose, w some hematochezia when wiping. Denies abd pain Review of Systems Review of Systems: All systems reviewed & are unremarkable except as noted in HPI & below Physical Exam Constitutional: + ill appearing, well groomed, cooperative and comfortable Eyes: PERRL and EOM intact bilaterally ENMT: external ear and nose normal, oropharynx normal Respiratory: normal respiratory effort, lungs clear to auscultation Cardiovascular: RRR, no murmur, no edema Gastrointestinal (Abdomen): normal bowel sounds, soft, nontender, no hepatosplenomegaly Skin: no rashes, warm and dry Psychiatric: A+Ox3, euthymic affect Lymphatic: no lymphedema Results & Data ([facility]) Vital Signs (Past 12 Hours) Vital Signs Temp Pulse Resp BP Pulse Ox 05/17/20 07:14 36.6 C 85 16 110/74 99 05/17/20 03:12 36.4 C L 79 16 131/87 96 05/16/20 23:13 36.6 C 91 H 16 119/80 95 (1) Anemia Anemia type: unspecified type Qualified Code(s): D64.9 - Anemia, unspecified
[2020-05-17] MEDS ORDERED: TPN/PPN CONSULT PHARMACY PRN (10:55)
--- NOTE | 2020-05-17 11:32 | Hospitalist Progress Note ---
Date of Service May 17, 2020 Assessment & Plan (1) Colitis: * With anemia. Hemoglobin reported to be 8.6 AM of scheduled outpatient scope and sent to ER for generalized pallor, tachycardia and anemia. * Transfused 1 unit 05/15 for hemoglobin 8.0. H/h stable at 07/02.8 GI consulted -- appreciate assistance * EGD with non-bleeding esophageal ulcer, biopsied --> PPI BID x 2 months and repeat EGD 6-8 wks for resolution recommended. ?related to pill per notes * Colonoscopy with congested, erythematous and ulcerated mucosa in entire examined colon, suspicious for ulcerative colitis * CRP 18.9 (was 19.9), ESR elevated at 73 (was 56) --> continue to trend * KUB in AM to r/o megacolon * Quat gold pending * CXR negative * Hep B serologies without Hep B immunity -- will need addressed prior to TNF * GI added mesalamine 2400mg BID -- continued * Increased methylpred to 20mg Q6H given inflammation Clear liquids for now Zofran prn nausea GI considering addition of Humira given severity of UC not particularly responsive to mesalamine * CBC, BMP, ESR, CRP, Mag, Phos in AM (2) Pyelonephritis: * Likely contributed to nausea, temps on admission. BCx NGTD * UA with trace blood, positive nitrite, 2+ leuk est, >30WBC, 5-10rbc, >30hyaline case, 4+ bacteria, 1-5 WBC casts * Initiated on ceftriaxone evening 05/16 * culture with gram negative bacilli on prelim - follow c/s (3) Anemia: * See above -- recently started on iron supplementation with vitamin C for iron def anemia, to be continued * H/h stable 07/01.9 * CBC as above (4) Diarrhea: * Improved from discharge until recent colonoscopy prep --> continue zinc oxide for irriation, * Continue lactobacillus (5) Bilateral conjunctivitis: * discontinued ofloxacin op --> utilizing prednisolone op as likely uveitis given likely UC * Ophthalmology consulted while inpatient per GI (6) Internal hemorrhoids: * Hydrocortisone suppositories prn (7) Thrombocytosis: * Repeating labs as above -- likely reactive given above * Continue to trend (8) S/P section: * 9 weeks post-. Did have hx pre-eclampsia with but no s/sx HELLP * Will need educated regarding at discharge as she has been utilizing formula but plans on resuming at discharge. Likely not possible if initiating on biologic agent as above (9) Protein calorie malnutrition: * secondary to inflammatory bowel * freight engineer consulted for initiation of PPN while inpatient given nutritional status (10) Acute blood loss anemia: * secondary to #1 (11) DVT prophylaxis: * Ambulation encouraged * SCDs * No chemoprophylaxis in setting of active bleeding Dispo: likely to remain inpatient additional 1-2 nights. monitor progress Admission and Anticipated Discharge Date Admission Date: May 16, 2020 Supervising Physician Co-Signing Physician Notes PA Supervision Note: I did not personally see or examine the patient today, but I verified all julio points of STEFFI May's assessment and plan with the following exceptions/additions: I discussed the patient's case with the consulted charter bus driver, Dr. Boston. He advised increasing the frequency of the prednisolone eyedrops to 1 drop each eye every 2 hours while awake times the next 24 hours and then down to 1 drop each eye every 6 hours and remain on that dose until seen in the ophthalmology office after discharge. Otherwise plan outlined as above Starting PPN, continuing IV steroids and mesalamine, and GI working on approval of biologic. Subjective Patient evaluated this afternoon. Initially tearful at the idea of having to remain inpatient given at home, but understands need to remain inpatient for treatment. to visit later today. Patient eating liquid tray at this time. Still with bloody stool although believes may be less, less bleeding as well and less frequency of diarrhea. Increased energy today although still feeling worn out. Plan for increased steroids, initiation of biologic by GI team and treatment of UTI discussed. Episode of nausea last night, none today. Possibly related to uti. Denies fever, chills, chest pain, shortness of breath, dysuria or increased frequency at this time. Decreased eye pain and photophobia with steroid drops. She states she had been told by GI that ophthalmology will be in to see her at some point today. Review of Systems Review of Systems: All systems reviewed & are unremarkable except as noted in HPI & below Physical Exam Constitutional: well developed, + ill appearing and cooperative; no acute dis tress improved color on exam today Eyes: + conjunctival abnormality (slightly erythematous, improving), + anicteric sclerae and PERRL ENMT: Ears: no hearing impairment Nose: no external nose abnormality dry mm Neck: trachea midline, no thyromegaly Respiratory: normal respiratory effort, lungs clear to auscultation Cardiovascular: RRR, no murmur, no edema Gastrointestinal (Abdomen): normal bowel sounds, soft, nontender, no hepatosplenomegaly Musculoskeletal: no cyanosis or clubbing, extremities motor strength 5/5 Neurologic: patellar DTR's 2+ bilat, sensation intact and PERRL, EOMI, accommodation nl, no face palsy, no dysarthria Psychiatric: Orientation: alert and oriented x 3 Affect: + tearful affect Lymphatic: no cervical or axillary lymphadenopathy Results & Data Results & Data ([facility]) Vital Signs (Past 12 Hours) Vital Signs Temp Pulse Resp BP Pulse Ox 05/17/20 07:14 36.6 C 85 16 110/74 99 05/17/20 03:12 36.4 C L 79 16 131/87 96 Laboratory Results 05/17/20 05/17/20 05/17/20 Range/Units 11:30 06:04 06:04 WBC (4.8-10.8) K/uL RBC (4.2-5.4) M/uL Hgb (12.0-16.0) g/dL Hct (37-47) % MCV (80-100) fL MCH (25-34) pg MCHC (32-36) g/dL RDW Std Deviation (36.4-46.3) fL RDW Coeff of Juan (11.5-14.5) % Plt Count (130-400) K/uL MPV (7.4-10.4) fL ESR 73 H (0-21) mm/hr Sodium 139 (136-145) mmol/L Potassium 3.9 (3.5-5.1) mmol/L Chloride 107 (98-107) mmol/L Carbon Dioxide 25 (21-32) mmol/L Anion Gap 7.0 (3-11) BUN 4 L (7-18) mg/dl Creatinine 0.35 L (0.6-1.2) mg/dl Est Cr Clr Drug Dosing 250.9 ml/min Est GFR ( Amer) > 150.0 Est GFR (Non-Af Amer) 139.0 BUN/Creatinine Ratio 12.4 (10-20) Glucose 125 H (70-99) mg/dl Calcium 7.6 L (8.5-10.1) mg/dl Phosphorus 3.6 (2.5-4.9) mg/dl Magnesium 2.3 (1.8-2.4) mg/dl Total Bilirubin 0.2 (0.2-1) mg/dl AST 38 H (15-37) U/L ALT 19 (12-78) U/L Alkaline Phosphatase 69 (45-117) U/L C-Reactive Protein 18.90 H (0-0.29) mg/dl Total Protein 5.6 L (6.4-8.2) gm/dl Albumin 1.2 L (3.4-5.0) gm/dl Globulin 4.4 H (2.5-4.0) gm/dl Albumin/Globulin Ratio 0.3 L (0.9-2) 05/17/20 05/16/20 Range/Units 06:04 19:35 WBC 7.79 10.01 (4.8-10.8) K/uL RBC 3.49 L 3.45 L (4.2-5.4) M/uL Hgb 9.0 L 8.9 L (12.0-16.0) g/dL Hct 28.9 L 28.6 L (37-47) % MCV 82.8 82.9 (80-100) fL MCH 25.8 25.8 (25-34) pg MCHC 31.1 L 31.1 L (32-36) g/dL RDW Std Deviation 52.8 H 53.1 H (36.4-46.3) fL RDW Coeff of Juan 17.4 H 17.5 H (11.5-14.5) % Plt Count 692 H 664 H (130-400) K/uL MPV 8.2 7.9 (7.4-10.4) fL ESR (0-21) mm/hr Sodium (136-145) mmol/L Potassium (3.5-5.1) mmol/L Chloride (98-107) mmol/L Carbon Dioxide (21-32) mmol/L Anion Gap (3-11) BUN (7-18) mg/dl Creatinine (0.6-1.2) mg/dl Est Cr Clr Drug Dosing ml/min Est GFR ( Amer) Est GFR (Non-Af Amer) BUN/Creatinine Ratio (10-20) Glucose (70-99) mg/dl Calcium (8.5-10.1) mg/dl Phosphorus (2.5-4.9) mg/dl Magnesium (1.8-2.4) mg/dl Total Bilirubin (0.2-1) mg/dl AST (15-37) U/L ALT (12-78) U/L Alkaline Phosphatase (45-117) U/L C-Reactive Protein (0-0.29) mg/dl Total Protein (6.4-8.2) gm/dl Albumin (3.4-5.0) gm/dl Globulin (2.5-4.0) gm/dl Albumin/Globulin Ratio (0.9-2) PG Care Time/CCT Total # of Minutes Spent Total Time Spent with Patient: Total time spent is greater than 50% in coordination of care (as documented) at patient's floor/unit and/or counseling patient: Coding Level of Care Code 58095 Subseq Hosp Care Lvl 3 Diagnoses Colitis K52.9 Pyelonephritis N12 Anemia D64.9 Anemia type: unspecified type Diarrhea R19.7 Bilateral conjunctivitis H10.9 Internal hemorrhoids K64.8 Thrombocytosis D47.3 S/P section Z98.891 Protein calorie malnutrition E46 Acute blood loss anemia D62 DVT prophylaxis Z29.9 (1) Anemia Anemia type: unspecified type Qualified Code(s): D64.9 - Anemia, unspecified
[2020-05-17 12:12] LABS: Magnesium 2.3 mg/dl (1.8-2.4); Phosphorus 3.6 mg/dl (2.5-4.9)
[2020-05-17] MEDS ORDERED: DEXTROSE 10% 1,000 ML IV PRN (12:25)
[2020-05-17] MEDS: ASCORBIC ACID 500 MG TAB PO SCH ×3 (12:51→20:15)
[2020-05-17] MEDS: FERROUS SULFATE 325 MG TAB PO SCH ×3 (12:51→20:15)
--- NOTE | 2020-05-17 13:15 | Pharmacy Report ---
Pharmacy PN Initial Consult - Date of Service May 17, 2020 - Scope Pharmacy has been consulted to manage parenteral nutrition orders and order appropriate labs. As part of the Nutrition Support Team guidelines, pharmacy will work in conjunction with dietary when determining the patients caloric needs. - Subjective The patient is a 39 year old F admitted on 05/16/20 15:43 for ANEMIA,GIB. Patient is to receive parenteral nutrition for prolonged NPO status with newly diagnosed Crohn's disease. Pertinent PMH: recent section 3 months ago - Objective Height: 5 ft 6 in Weight: 91.6 kg Diet: Clear Liquid Vascular Access:: peripheral Intake & Output (Last 24Hrs): Intake & Output 05/15/20 05/16/20 05/17/20 05/18/20 06:59 06:59 06:59 06:59 Intake Total 650 / 650 270 / 270 70 / 70 Output Total 4 / 5 127 / 127 Balance 646 / 645 143 / 143 70 / 70 Weight 91.6 kg 91.6 kg 91.6 kg Laboratory Data (Last 24 Hrs):: 05/17/20 05/17/20 06:04 11:30 Sodium 139 Potassium 3.9 Chloride 107 Carbon Dioxide 25 BUN 4 L Creatinine 0.35 L Glucose 125 H Calcium 7.6 L Phosphorus 3.6 Magnesium 2.3 Total Bilirubin 0.2 AST 38 H ALT 19 Alkaline Phosphatase 69 Albumin 1.2 L Nutrition Assessment:: Please refer to the Notes section of the EMR for the most recent edge beader note. - Assessment Ms Rodgers is a 39 y/o F with a PMH of Cesarian section 3 months ago who presents with anemia and profuse diarrhea. Colonoscopy this admission showed extensive colonic inflammation leading to a diagnosis of Crohn's disease. PPN will be started due to prolonged NPO status and intolerance to oral intake. - Plan For day 1 of PN administration, the following will be ordered: Macronutrients Amino acids 90 grams/day Dextrose 100 grams/day Lipids 50 grams/day Micronutrients Combined electrolytes 20 mL - contains 35 mEq Na, 20 meq K, 4.5 mEq Ca, 5 mEq Mg, 35 mEq Cl, 29.5 mEq acetate per 20 mL Sodium phosphate -- MMol Sodium chloride 50 mEq Sodium acetate 50 mEq Potassium phosphate 21 mMol Potassium chloride -- mEq Potassium acetate -- mEq Magnesium sulfate -- mEq Calcium gluconate -- mEq Multivitamins 10 mL Trace Elements 10 mL Additional additives: thiamine 100 mg and folic acid 1 mg Total volume 2000 mL to be infused over 24 hrs will provide 1200 kcal/day Final osmolarity 865 mOsm/L (maximum for PPN is 900 mOsm/L) Labs to be ordered per PN order protocol Pharmacy will follow and adjust parenteral nutrition orders on a daily basis. Thank you.
[2020-05-17] MEDS: ONDANSETRON INJ 2 MG/ML 2 ML VIAL IV SCH ×2 (13:46→20:09)
[2020-05-17] MEDS ORDERED: Custom Peripheral Pn 2,000 ML in TPN BAG 0 ML IV SCH (16:00)
[2020-05-17] MEDS: PRENATAL VITAMIN 1 TAB PO SCH (20:16)
[2020-05-18] MEDS: methylPREDNISolone 20 MG in SYRINGE 0 ML IV SCH ×4 (02:42→19:59)
[2020-05-18] MEDS: ONDANSETRON INJ 2 MG/ML 2 ML VIAL IV SCH ×4 (02:43→20:02)
[2020-05-18] MEDS: prednisoLONE acetate 1% OP SUSP 5 ML BTL OP SCH ×9 (06:01→22:09)
[2020-05-18] MEDS: LACTOBACILLUS ACIDOPHILUS (FLORANEX) TAB PO SCH ×4 (07:24→20:03)
--- NOTE | 2020-05-18 07:35 | XRay Report ---
KUB HISTORY: Follow up study in a patient with abdominal distention r/o megacolon COMPARISON: CT abdomen and pelvis 05/10/2020 FINDINGS: Air-filled loops of large and small bowel with a single loop of mildly dilated small bowel measuring 3.2 cm. A haustral fold pattern of the transverse colon. Probable phleboliths of the pelvis . No renal calculi. No ureteral calculi. No pneumoperitoneum or pneumatosis. No fracture. IMPRESSION: Air-filled loops of large and small bowel with nonobstructive bowel gas pattern. Ahaustral fold patte rn of the colon redemonstrated ACT 112: Negative or not required by law. The above report was generated using voice recognition software. It may contain grammatical, syntax o r spelling errors. Electronically signed by: Issac Ordoñez M.D. 05/18/2020 7:34 AM
[2020-05-18 08:14] LABS: Hematocrit (blood only) 29.1 % (37-47); Hemoglobin 8.7 g/dL (12.0-16.0); Mean Corpuscular Hemoglobin 25.1 pg (25-34); Mean Corpuscular Hgb Conc 29.9 g/dL (32-36); Mean Corpuscular Volume 84.1 fL (80-100); Mean Platelet Volume 8.1 fL (7.4-10.4); Nucleated RBC # (auto) 0.03 K/uL (0-0); Nucleated RBC % (auto) 0.4 %; Platelet Count 751 K/uL (130-400); RDW Coefficient of Variation 17.6 % (11.5-14.5); RDW Standard Deviation 54.5 fL (36.4-46.3); Red Blood Count 3.46 M/uL (4.2-5.4)
[2020-05-18] MEDS: ASCORBIC ACID 500 MG TAB PO SCH ×3 (08:29→20:04)
[2020-05-18] MEDS: FERROUS SULFATE 325 MG TAB PO SCH ×3 (08:29→20:03)
[2020-05-18] MEDS: MESALAMINE 800 MG TABCR PO SCH ×2 (08:29→20:04)
[2020-05-18] MEDS: PANTOprazole 40 MG TAB PO SCH ×2 (08:29→20:04)
[2020-05-18] MEDS: BUTT PASTE (ZINC OXIDE 16%) 171 APPLN/57 GM JAR EXT SCH ×4 (08:29→20:03)
[2020-05-18 08:45] LABS: BUN Creatinine Ratio 14.6 (10-20); C Reactive Protein 8.69 mg/dl (0-0.29); Calcium 8.2 mg/dl (8.5-10.1); Creatinine Clr Calc Pharmacy 160.6 ml/min; Est GFR (African American) 140.6; Est GFR (Non-African American) 121.3; Magnesium 2.5 mg/dl (1.8-2.4)
[2020-05-18 08:52] LABS: Phosphorus 2.9 mg/dl (2.5-4.9)
[2020-05-18] MEDS: cefTRIAXone SODIUM 2,000 MG in DEXTROSE 5% 50 ML IV SCH (09:14)
[2020-05-18] MEDS ORDERED: PHARMACY GLYCEMIC MGMT CONSULT PRN (13:40)
--- NOTE | 2020-05-18 13:49 | Pharmacy Report ---
Glycemic Control Consultation - Date of Service May 18, 2020 - Scope Scope: Glycemic Pharmacist consulted for glycemic control and to write orders per [facility] inpatient glycemic control protocol. - Objective Weight: 86.1 kg Accuchecks BSG (last 24hrs): 05/17/20 05/17/20 05/18/20 18:02 23:57 06:01 Glucose POC Glucose 160 H 165 H 192 H 05/18/20 05/18/20 07:54 12:28 Glucose 160 H POC Glucose 175 H Laboratory Data (last 24hrs): 05/18/20 07:54 Potassium 4.0 Carbon Dioxide 30 Anion Gap 4.0 Creatinine 0.53 L Est Cr Clr Drug Dosing 160.6 - Recent Pertinent Medications Outpatient Anti-diabetic Regimen: * N/A Risk Factors for Insulin Resistance: * Steroids: solm 20 q 6hr * Diet: ppn - Assessment & Plan Assessment & Plan: ASSESSMENT: * 39 year old with colitis/anemia on admission. Also concern for pyelonephritis, on rocephin. S/p section, 9 weeks with hx of gestational diabetes. Protein calorie malnutrition secondary to inflammatory bowel, initiated on PPN 05/17 * BSGs trending up on admission, likely related to steroids and PPN. Pharmacy consulted for glycemic control. * Plan to utilize novolog / correctional - will asses how BSGs trend before adding any basal insulin PLAN FOR INPATIENT GLYCEMIC CONTROL: * Basal insulin * Lantus - hold * Bolus insulin * NovoLog per scale ACHS or Q6hrs while NPO * Goal Range: Low 110 mg/dL - High 140 mg/dL * Correction Factor: 30 mg/dL/unit * Nutritional / Prandial insulin per carb ratio of 1 unit per -- grams CHO consumed * Please note that the plan above was derived based on current level of insulin resistance and hospital stress. These recommendations are appropriate for inpatient admission only. Plan of care upon discharge will need to be reassessed to avoid potential outpatient hypo/hyperglycemia. Thank you.
[2020-05-18] MEDS ORDERED: GLUCAGON FOR INJ 1 MG VIAL IM PRN (14:00)
[2020-05-18] MEDS ORDERED: GLUCOSE 40% GEL 15 GM TUBE PO PRN (14:00)
[2020-05-18] MEDS ORDERED: DEXTROSE 50% 50 ML SYRINGE IV PRN (14:00)
[2020-05-18] MEDS ORDERED: GLUCOSE 10 TABS/TUBE PO PRN (14:00)
[2020-05-18] MEDS ORDERED: CARBOHYDRATES FOR HYPOGLYCEMIA PO PRN (14:00)
--- NOTE | 2020-05-18 15:37 | Hospitalist Progress Note ---
Date of Service May 18, 2020 Assessment & Plan (1) Colitis: * With anemia. Hemoglobin reported to be 8.6 AM of scheduled outpatient scope and sent to ER for generalized pallor, tachycardia and anemia. * Transfused 1 unit 05/15 for hemoglobin 8.0. H/h stable at 07/02.8 GI consulted -- appreciate assistance * EGD with non-bleeding esophageal ulcer, biopsied --> PPI BID x 2 months and repeat EGD 6-8 wks for resolution recommended. ?related to pill per notes * Colonoscopy with congested, erythematous and ulcerated mucosa in entire examined colon, suspicious for ulcerative colitis and confirmed on pathology (and neg for CMV) * CRP, ESR continuing to trend down * KUB without megacolon * Quant gold pending * Hep B serologies without Hep B immunity -- will need addressed prior to TNF * GI added mesalamine 2400mg BID -- continued * Increased methylpred to 20mg Q6H given inflammation -- continue for now Diet advanced GI considering addition of Humira given severity of UC not particularly responsive to mesalamine --> prior auth from clinic to arrange OP therapy H/h 8.7.1, stable * CBC, BMP, ESR, CRP, Mag, Phos in AM (2) Pyelonephritis: * Likely contributed to nausea, temps on admission. BCx NGTD * UA with trace blood, positive nitrite, 2+ leuk est, >30WBC, 5-10rbc, >30hyaline case, 4+ bacteria, 1-5 WBC casts * Urine culture with klebsiella pneumonia, pansensitive except to nitrofurantoin * Ceftriaxone IV (on day 3 of therapy) and will transition to Keflex in AM (3) Anemia: * See above -- recently started on iron supplementation with vitamin C for iron def anemia, to be continued * H/h stable * CBC as above (4) Diarrhea: * Improved from discharge until recent colonoscopy prep --> continue zinc oxide for irritation * Continue lactobacillus (5) Bilateral conjunctivitis: * discontinued ofloxacin op --> utilizing prednisolone op as likely uveitis given likely UC * Ophthalmology consulted while inpatient per GI -- increased prednisolone to QID and will need f/u at discharge for slit lamp examination in the office (6) Internal hemorrhoids: * Hydrocortisone suppositories prn (7) Thrombocytosis: * Repeating labs as above -- likely reactive given above * Continue to trend (8) S/P section: * 9 weeks post-. Did have hx pre-eclampsia with but no s/sx HELLP * Will need educated regarding at discharge as she has been uti lizing formula but plans on resuming at discharge. * Per her previous discussion with GI -- able to breastfeed on Humira (9) Protein calorie malnutrition: * secondary to inflammatory bowel * credit risk modeler consulted for initiation of PPN while inpatient given nutritional status -- to be discontinued per patient's conversation with GI today as she i s tolerating solid foods (10) Acute blood loss anemia: * secondary to #1 (11) DVT prophylaxis: * Ambulation encouraged * SCDs * No chemoprophylaxis in setting of active bleeding Admission and Anticipated Discharge Date Admission Date: May 16, 2020 Supervising Physician Co-Signing Physician Notes PA Supervision Note: I did not personally see or examine the patient today, but I verified all julio points of STEFFI May's assessment and plan with the following exceptions/additions: None Subjective Patient with more energy today. Less bowel movements. One without blood and one she states with blood tinged toilet paper. Episode of nausea last evening following tomato soup and coffee but no further episodes today. In bed eating currently. Did not have visitor last night but may happen today. Hopeful for discharge soon as she is eager to be at home with her 9 wk old. She states the PPN is to be completed running today and see how she tolerates diet, currently occurring. She states hillary crackers went down earlier and going to eat shortly. Discussed incentive spirometer use and to continue to take deep breaths to prevent atelectasis/pneumonia. Discussed urine findings and that we can transition to orals tomorrow. Plans to discharge on Humira and states she had been told by FOREST SCIENCE PROFESSOR that she would be allowed to continue . Denies f/c/cp/sob at this time. Minimally cramping but no pain. Back pain from laying in bed. Less photophobia with the steroid drops. Plans on seeing Dr. Boston in follow up once discharged. Review of Systems Review of Systems: All systems reviewed & are unremarkable except as noted in HPI & below Physical Exam Constitutional: + ill appearing, cooperative and comfortable; no acute distress pallor improved Eyes: + conjunctival abnormality (slightly erythematous, MUCH improved), + anicteric sclerae and PERRL ENMT: Ears: no hearing impairment Nose: no external nose abnormality Neck: trachea midline, no thyromegaly Respiratory: normal respiratory effort, lungs clear to auscultation Auscultation: + crackles (bibasilar) Cardiovascular: Rate/Rhythm: regular rate and regular rhythm Heart Sounds: no murmur Extremities: + edema (trace) Gastrointestinal (Abdomen): Inspection/Auscultation: normal bowel sounds Percussion/Palpation: abdomen soft; no guarding and abdomen not rigid Musculoskeletal: no cyanosis or clubbing, extremities motor strength 5/5 Skin: warm, dry Neurologic: patellar DTR's 2+ bilat, sensation intact and PERRL, EOMI, accommodation nl, no face palsy, no dysarthria Psychiatric: Orientation: alert and oriented x 3 Lymphatic: no cervical or axillary lymphadenopathy Results & Data Results & Data ([facility]) Vital Signs (Past 12 Hours) Vital Signs Temp Pulse Resp BP Pulse Ox 05/18/20 15:00 36.8 C 78 17 121/77 95 05/18/20 07:34 36.9 C 65 16 117/80 90 Laboratory Results 05/18/20 05/18/20 05/18/20 Range/Units 17:29 12:28 07:54 WBC (4.8-10.8) K/uL RBC (4.2-5.4) M/uL Hgb (12.0-16.0) g/dL Hct (37-47) % MCV (80-100) fL MCH (25-34) pg MCHC (32-36) g/dL RDW Std Deviation (36.4-46.3) fL RDW Coeff of Juan (11.5-14.5) % Plt Count (130-400) K/uL MPV (7.4-10.4) fL Absolute Nucleated RBC (0-0) K/uL Nucleated RBC % (auto) % ESR 52 H (0-21) mm/hr Sodium (136-145) mmol/L Potassium (3.5-5.1) mmol/L Chloride (98-107) mmol/L Carbon Dioxide (21-32) mmol/L Anion Gap (3-11) BUN (7-18) mg/dl Creatinine (0.6-1.2) mg/dl Est Cr Clr Drug Dosing ml/min Est GFR ( Amer) Est GFR (Non-Af Amer) BUN/Creatinine Ratio (10-20) Glucose (70-99) mg/dl POC Glucose 191 H 175 H (70-99) mg/dl Calcium (8.5-10.1) mg/dl Phosphorus (2.5-4.9) mg/dl Magnesium (1.8-2.4) mg/dl C-Reactive Protein (0-0.29) mg/dl Hep B Core IgM Ab (NON-REACTIVE) Crossmatch 05/18/20 05/18/20 05/18/20 Range/Units 07:54 07:54 06:01 WBC 7.60 (4.8-10.8) K/uL RBC 3.46 L (4.2-5.4) M/uL Hgb 8.7 L (12.0-16.0) g/dL Hct 29.1 L (37-47) % MCV 84.1 (80-100) fL MCH 25.1 (25-34) pg MCHC 29.9 L (32-36) g/dL RDW Std Deviation 54.5 H (36.4-46.3) fL RDW Coeff of Juan 17.6 H (11.5-14.5) % Plt Count 751 H (130-400) K/uL MPV 8.1 (7.4-10.4) fL Absolute Nucleated RBC 0.03 H (0-0) K/uL Nucleated RBC % (auto) 0.4 % ESR (0-21) mm/hr Sodium 139 (136-145) mmol/L Potassium 4.0 (3.5-5.1) mmol/L Chloride 104 (98-107) mmol/L Carbon Dioxide 30 (21-32) mmol/L Anion Gap 4.0 (3-11) BUN 8 (7-18) mg/dl Creatinine 0.53 L (0.6-1.2) mg/dl Est Cr Clr Drug Dosing 160.6 ml/min Est GFR ( Amer) 140.6 Est GFR (Non-Af Amer) 121.3 BUN/Creatinine Ratio 14.6 (10-20) Glucose 160 H (70-99) mg/dl POC Glucose 192 H (70-99) mg/dl Calcium 8.2 L (8.5-10.1) mg/dl Phosphorus 2.9 (2.5-4.9) mg/dl Magnesium 2.5 H (1.8-2.4) mg/dl C-Reactive Protein 8.69 H (0-0.29) mg/dl Hep B Core IgM Ab (NON-REACTIVE) Crossmatch 05/17/20 05/17/20 05/16/20 Range/Units 23:57 18:02 15:33 WBC (4.8-10.8) K/uL RBC (4.2-5.4) M/uL Hgb (12.0-16.0) g/dL Hct (37-47) % MCV (80-100) fL MCH (25-34) pg MCHC (32-36) g/dL RDW Std Deviation (36.4-46.3) fL RDW Coeff of Juan (11.5-14.5) % Plt Count (130-400) K/uL MPV (7.4-10.4) fL Absolute Nucleated RBC (0-0) K/uL Nucleated RBC % (auto) % ESR (0-21) mm/hr Sodium (136-145) mmol/L Potassium (3.5-5.1) mmol/L Chloride (98-107) mmol/L Carbon Dioxide (21-32) mmol/L Anion Gap (3-11) BUN (7-18) mg/dl Creatinine (0.6-1.2) mg/dl Est Cr Clr Drug Dosing ml/min Est GFR ( Amer) Est GFR (Non-Af Amer) BUN/Creatinine Ratio (10-20) Glucose (70-99) mg/dl POC Glucose 165 H 160 H (70-99) mg/dl Calcium (8.5-10.1) mg/dl Phosphorus (2.5-4.9) mg/dl Magnesium (1.8-2.4) mg/dl C-Reactive Protein (0-0.29) mg/dl Hep B Core IgM Ab NON-REACTIVE (NON-REACTIVE) Crossmatch 05/15/20 Range/Units 16:04 WBC (4.8-10.8) K/uL RBC (4.2-5.4) M/uL Hgb (12.0-16.0) g/dL Hct (37-47) % MCV (80-100) fL MCH (25-34) pg MCHC (32-36) g/dL RDW Std Deviation (36.4-46.3) fL RDW Coeff of Juan (11.5-14.5) % Plt Count (130-400) K/uL MPV (7.4-10.4) fL Absolute Nucleated RBC (0-0) K/uL Nucleated RBC % (auto) % ESR (0-21) mm/hr Sodium (136-145) mmol/L Potassium (3.5-5.1) mmol/L Chloride (98-107) mmol/L Carbon Dioxide (21-32) mmol/L Anion Gap (3-11) BUN (7-18) mg/dl Creatinine (0.6-1.2) mg/dl Est Cr Clr Drug Dosing ml/min Est GFR ( Amer) Est GFR (Non-Af Amer) BUN/Creatinine Ratio (10-20) Glucose (70-99) mg/dl POC Glucose (70-99) mg/dl Calcium (8.5-10.1) mg/dl Phosphorus (2.5-4.9) mg/dl Magnesium (1.8-2.4) mg/dl C-Reactive Protein (0-0.29) mg/dl Hep B Core IgM Ab (NON-REACTIVE) Crossmatch See Detail Diagnostic Findings KUB IMPRESSION: Air-filled loops of large and small bowel with nonobstructive bowel gas pattern. Ahaustral fold pattern of the colon redemonstrated PG Care Time/CCT Total # of Minutes Spent Total Time Spent with Patient: Total time spent is greater than 50% in coordination of care (as documented) at patient's floor/unit and/or counseling patient: Coding Level of Care Code 75128 Subseq Hosp Care Lvl 3 Diagnoses Colitis K52.9 Pyelonephritis N12 Anemia D64.9 Anemia type: unspecified type Diarrhea R19.7 Bilateral conjunctivitis H10.9 Internal hemorrhoids K64.8 Thrombocytosis D47.3 S/P section Z98.891 Protein calorie malnutrition E46 Acute blood loss anemia D62 DVT prophylaxis Z29.9 (1) Anemia Anemia type: unspecified type Qualified Code(s): D64.9 - Anemia, unspecified
[2020-05-18] MEDS ORDERED: TPN IV SCH (16:00)
[2020-05-18] MEDS ORDERED: PERIPHERAL PN IV SCH (16:00)
--- NOTE | 2020-05-18 16:24 | Gastroenterology Progress Note ---
Date of Service May 18, 2020 Assessment & Plan Admission and Anticipated Discharge Date Admission Date: May 16, 2020 Subjective I have seen and examined the patient today, she feels well, no abdominal pain, nausea or vomiting, moved her bowel just 3 times yesterday, tolerated full breakfast with solids. On exam abdomen is soft. Labs: reviewed Recommend: Clinically improved and seems to be responding to Steroids now. At this point will continue same dose of steroids, may stop PPN tomorrow if continues to tolerate solids. Will consider starting Anti TNF prior to discharge if we can expedite prior auth from the clinic to arrange OP therapy. Results & Data ([facility]) Vital Signs (Past 12 Hours) Vital Signs Temp Pulse Resp BP Pulse Ox 05/18/20 15:00 36.8 C 78 17 121/77 95 05/18/20 07:34 36.9 C 65 16 117/80 90
[2020-05-18] MEDS: INSULIN ASPART 100 UNITS/ML 3 ML PEN SC SCH ×2 (17:50→20:23)
[2020-05-18] MEDS: PRENATAL VITAMIN 1 TAB PO SCH (20:04)
[2020-05-19] MEDS: INSULIN ASPART 100 UNITS/ML 3 ML PEN SC SCH ×5 (01:31→21:16)
[2020-05-19] MEDS: methylPREDNISolone 20 MG in SYRINGE 0 ML IV SCH ×4 (01:32→21:12)
[2020-05-19] MEDS: ONDANSETRON INJ 2 MG/ML 2 ML VIAL IV SCH ×4 (01:33→21:12)
[2020-05-19] MEDS: prednisoLONE acetate 1% OP SUSP 5 ML BTL OP SCH ×9 (05:58→21:15)
[2020-05-19 07:39] LABS: Hematocrit (blood only) 28.3 % (37-47); Hemoglobin 8.5 g/dL (12.0-16.0); Mean Corpuscular Hemoglobin 25.4 pg (25-34); Mean Corpuscular Volume 84.5 fL (80-100); Mean Platelet Volume 8.2 fL (7.4-10.4); Nucleated RBC # (auto) 0.07 K/uL (0-0); Nucleated RBC % (auto) 0.5 %; Platelet Count 766 K/uL (130-400); RDW Coefficient of Variation 17.8 % (11.5-14.5); RDW Standard Deviation 55.1 fL (36.4-46.3); Red Blood Count 3.35 M/uL (4.2-5.4); White Blood Count 14.14 K/uL (4.8-10.8)
[2020-05-19] MEDS: LACTOBACILLUS ACIDOPHILUS (FLORANEX) TAB PO SCH ×4 (07:39→22:03)
[2020-05-19] MEDS: ASCORBIC ACID 500 MG TAB PO SCH ×3 (08:00→22:05)
[2020-05-19] MEDS: BUTT PASTE (ZINC OXIDE 16%) 171 APPLN/57 GM JAR EXT SCH ×4 (08:00→21:13)
[2020-05-19 08:01] LABS: Basophils # (auto) 0.03 K/uL (0-0.2); Basophils % (auto) 0.2 %; Eosinophils # (auto) 0.01 K/uL (0-0.5); Eosinophils % (auto) 0.1 %; Hypochromasia Present; Immature Granulocytes # (auto) 1.08 K/uL (0.00-0.02); Immature Granulocytes % (auto) 7.6 %; Lymphocytes # (auto) 1.68 K/uL (1.2-3.4); Lymphocytes % (auto) 11.9 %; Monocytes # (auto) 0.85 K/uL (0.11-0.59); Neutrophils # (auto) 10.49 K/uL (1.4-6.5); Neutrophils % (auto) 74.2 %; Poikilocytosis Present; Polychromasia 1+
[2020-05-19] MEDS: MESALAMINE 800 MG TABCR PO SCH ×2 (08:01→22:03)
[2020-05-19] MEDS: FERROUS SULFATE 325 MG TAB PO SCH ×3 (08:01→22:03)
[2020-05-19] MEDS: PANTOprazole 40 MG TAB PO SCH ×2 (08:01→22:02)
[2020-05-19] MEDS: cefTRIAXone SODIUM 2,000 MG in DEXTROSE 5% 50 ML IV SCH (08:05)
--- NOTE | 2020-05-19 08:54 | Hospitalist Progress Note ---
Date of Service May 19, 2020 Assessment & Plan (1) Colitis: * With anemia. Hemoglobin reported to be 8.6 AM of scheduled outpatient scope and sent to ER for generalized pallor, tachycardia and anemia. * Transfused 1 unit 05/15 for hemoglobin 8.0 GI consulted -- appreciate assistance s/p EGD -- non-bleeding esophageal ulcer, biopsied --> PPI BID x 2 months and repeat EGD 6-8 wks for resolution recommended s/p Colonoscopy with congested, erythematous and ulcerated mucosa in entire examined colon. Pathology with histological evidence of UC, severe in nature Continue mesalamine 2400mg BID Continue methylprednisolone 20mg Q6H and will likely be able to transition to prednisone 60mg PO Wednesday per discussion with GI PPN initiated and discontinued 05/19 as patient tolerating regular diet CRP trending down. ESR 58. CXR negative KUB without obstructive pattern Hepatitis serologies without Hep B immunity --> GI to address prior to initiating TNF (office arranging Humira) H/h 8.5/28.3 Labs in AM (2) Pyelonephritis: * Likely contributed to nausea, temps on admission. BCx NGTD * UA with trace blood, positive nitrite, 2+ leuk est, >30WBC, 5-10rbc, >30hyaline case, 4+ bacteria, 1-5 WBC casts * Urine culture with klebsiella pneumonia, pansensitive except to nitrofurantoin * Ceftriaxone IV (on day 4 of therapy) --> Keflex to begin 05/20 (3) Anemia: * See above -- recently started on iron supplementation with vitamin C for iron def anemia, to be continued * H/h slightly lower, but stable -- 8.5/28.3 * CBC as above (4) Diarrhea: * Improved from discharge until recent colonoscopy prep --> continue zinc oxide for irritation * Continue lactobacillus (5) Bilateral conjunctivitis: * discontinued ofloxacin op --> utilizing prednisolone op as likely uveitis given likely UC * Ophthalmology consulted while inpatient per GI -- increased prednisolone to QID and will need f/u at discharge for slit lamp examination in the office (6) Internal hemorrhoids: * Hydrocortisone suppositories prn (7) Thrombocytosis: * Repeating labs as above -- likely reactive given above * Continue to trend (8) S/P section: * 9 weeks post-. Did have hx pre-eclampsia with but no s/sx HELLP * Will need educated regarding at discharge as she has been utilizing formula but plans on resuming at discharge. * Per her previous discussion with GI -- able to breastfeed on Humira * Also, mesalamine is probably fine in -just watch for diarrhea in infant (9) Protein calorie malnutrition: * secondary to inflammatory bowel * master esthetician consulted for initiation of PPN while inpatient given nutritional status -- discontinued 05/19 (10) Acute blood loss anemia: * secondary to #1 (11) DVT prophylaxis: * Ambulation encouraged * SCDs * No chemoprophylaxis in setting of active bleeding Likely discharge in AM on oral steroids/mesalamine and will need f/u with GI for initiation of Humira Continue Keflex for UTI Admission and Anticipated Discharge Date Admission Date: May 16, 2020 Supervising Physician Co-Signing Physician Notes PA Supervision Note: I did not personally see or examine the patient today, but I verified all julio points of STEFFI May's assessment and plan with the following exceptions/additions: None Subjective Stomach feeling unsettled. "Feels off". Not really nausea that she feels with cause her to throw up but more of a nausea. Flushing sensation overnight. Feeling slightly warm today. Denies dysuria, hematuria. Bowel movements -- 3 overnight and 2-3 this morning. More formed. No noticeable delorse blood other than occasional on toilet paper. Tolerated diet. Discontinued PPN and patient tolerating regular food. She does have some abdominal indigestion if she takes her pills without food and states nurse Maksim has alleviated this by giving medications around her meal times. Had a cough but none today. Denies chest congestion or sputum production, shortness of breath. Has been using the incentive spirometer more frequently. Denies f/c/cp/sob at this time. Has been able to make it to the bathroom now when previously had such urgency that she required bedside commode. Review of Systems Review of Systems: All systems reviewed & are unremarkable except as noted in HPI & below Physical Exam Constitutional: + ill appearing, cooperative and comfortable; no acute distress Eyes: + conjunctival abnormality (minimal erythema, MUCH improved), + anicteric sclerae and PERRL ENMT: Ears: no hearing impairment Nose: no external nose abnormality Neck: trachea midline, no thyromegaly Respiratory: normal respiratory effort, lungs clear to auscultation Auscultation: no crackles and no wheezes Cardiovascular: Rate/Rhythm: regular rate and regular rhythm Heart Sounds: no murmur Extremities: + edema (trace) Gastrointestinal (Abdomen): normal bowel sounds, soft, nontender, no hepatosplenomegaly Inspection/Auscultation: normal bowel sounds Percussion/Palpation: abdomen soft; no guarding and abdomen not rigid Musculoskeletal: no cyanosis or clubbing, extremities motor strength 5/5 Neurologic: patellar DTR's 2+ bilat, sensation intact and PERRL, EOMI, accommodation nl, no face palsy, no dysarthria Psychiatric: A+Ox3, euthymic affect Lymphatic: no cervical or axillary lymphadenopathy Results & Data Results & Data ([facility]) Vital Signs (Past 12 Hours) Vital Signs Temp Pulse Resp BP BP Pulse Ox 05/19/20 07:31 36.7 C 57 L 16 115/75 96 05/18/20 22:57 36.9 C 74 18 135/85 97 Laboratory Results 05/19/20 05/19/20 05/19/20 Range/Units 07:09 07:09 07:09 WBC 14.14 H (4.8-10.8) K/uL RBC 3.35 L (4.2-5.4) M/uL Hgb 8.5 L (12.0-16.0) g/dL Hct 28.3 L (37-47) % MCV 84.5 (80-100) fL MCH 25.4 (25-34) pg MCHC 30.0 L (32-36) g/dL RDW Std Deviation 55.1 H (36.4-46.3) fL RDW Coeff of Juan 17.8 H (11.5-14.5) % Plt Count 766 H (130-400) K/uL MPV 8.2 (7.4-10.4) fL Immature Gran % (Auto) 7.6 % Neut % (Auto) 74.2 % Lymph % (Auto) 11.9 % [place] % (Auto) 6.0 % Eos % (Auto) 0.1 % Baso % (Auto) 0.2 % Neut # (Auto) 10.49 H (1.4-6.5) K/uL Lymph # (Auto) 1.68 (1.2-3.4) K/uL [place] # (Auto) 0.85 H (0.11-0.59) K/uL Eos # (Auto) 0.01 (0-0.5) K/uL Baso # (Auto) 0.03 (0-0.2) K/uL Immature Gran # (Auto) 1.08 H (0.00-0.02) K/uL Absolute Nucleated RBC 0.07 H (0-0) K/uL Nucleated RBC % (auto) 0.5 % Polychromasia 1+ Hypochromasia Present Poikilocytosis Present ESR 58 H (0-21) mm/hr Sodium Pending Potassium Pending Chloride Pending Carbon Dioxide Pending Anion Gap Pending BUN Pending Creatinine Pending Est Cr Clr Drug Dosing Pending Est GFR ( Amer) Pending Est GFR (Non-Af Amer) Pending BUN/Creatinine Ratio Pending Glucose Pending POC Glucose (70-99) mg/dl Calcium Pending Phosphorus Pending Magnesium Pending C-Reactive Protein Pending Crossmatch 05/19/20 05/19/20 05/18/20 Range/Units 05:49 01:14 20:20 WBC (4.8-10.8) K/uL RBC (4.2-5.4) M/uL Hgb (12.0-16.0) g/dL Hct (37-47) % MCV (80-100) fL MCH (25-34) pg MCHC (32-36) g/dL RDW Std Deviation (36.4-46.3) fL RDW Coeff of Juan (11.5-14.5) % Plt Count (130-400) K/uL MPV (7.4-10.4) fL Immature Gran % (Auto) % Neut % (Auto) % Lymph % (Auto) % [place] % (Auto) % Eos % (Auto) % Baso % (Auto) % Neut # (Auto) (1.4-6.5) K/uL Lymph # (Auto) (1.2-3.4) K/uL [place] # (Auto) (0.11-0.59) K/uL Eos # (Auto) (0-0.5) K/uL Baso # (Auto) (0-0.2) K/uL Immature Gran # (Auto) (0.00-0.02) K/uL Absolute Nucleated RBC (0-0) K/uL Nucleated RBC % (auto) % Polychromasia Hypochromasia Poikilocytosis ESR (0-21) mm/hr Sodium Potassium Chloride Carbon Dioxide Anion Gap BUN Creatinine Est Cr Clr Drug Dosing Est GFR ( Amer) Est GFR (Non-Af Amer) BUN/Creatinine Ratio Glucose POC Glucose 156 H 174 H 231 H (70-99) mg/dl Calcium Phosphorus Magnesium C-Reactive Protein Crossmatch 05/18/20 05/18/20 05/18/20 Range/Units 17:29 12:28 07:54 WBC (4.8-10.8) K/uL RBC (4.2-5.4) M/uL Hgb (12.0-16.0) g/dL Hct (37-47) % MCV (80-100) fL MCH (25-34) pg MCHC (32-36) g/dL RDW Std Deviation (36.4-46.3) fL RDW Coeff of Juan (11.5-14.5) % Plt Count (130-400) K/uL MPV (7.4-10.4) fL Immature Gran % (Auto) % Neut % (Auto) % Lymph % (Auto) % [place] % (Auto) % Eos % (Auto) % Baso % (Auto) % Neut # (Auto) (1.4-6.5) K/uL Lymph # (Auto) (1.2-3.4) K/uL [place] # (Auto) (0.11-0.59) K/uL Eos # (Auto) (0-0.5) K/uL Baso # (Auto) (0-0.2) K/uL Immature Gran # (Auto) (0.00-0.02) K/uL Absolute Nucleated RBC (0-0) K/uL Nucleated RBC % (auto) % Polychromasia Hypochromasia Poikilocytosis ESR 52 H (0-21) mm/hr Sodium Potassium Chloride Carbon Dioxide Anion Gap BUN Creatinine Est Cr Clr Drug Dosing Est GFR ( Amer) Est GFR (Non-Af Amer) BUN/Creatinine Ratio Glucose POC Glucose 191 H 175 H (70-99) mg/dl Calcium Phosphorus Magnesium C-Reactive Protein Crossmatch 05/15/20 Range/Units 16:04 WBC (4.8-10.8) K/uL RBC (4.2-5.4) M/uL Hgb (12.0-16.0) g/dL Hct (37-47) % MCV (80-100) fL MCH (25-34) pg MCHC (32-36) g/dL RDW Std Deviation (36.4-46.3) fL RDW Coeff of Juan (11.5-14.5) % Plt Count (130-400) K/uL MPV (7.4-10.4) fL Immature Gran % (Auto) % Neut % (Auto) % Lymph % (Auto) % [place] % (Auto) % Eos % (Auto) % Baso % (Auto) % Neut # (Auto) (1.4-6.5) K/uL Lymph # (Auto) (1.2-3.4) K/uL [place] # (Auto) (0.11-0.59) K/uL Eos # (Auto) (0-0.5) K/uL Baso # (Auto) (0-0.2) K/uL Immature Gran # (Auto) (0.00-0.02) K/uL Absolute Nucleated RBC (0-0) K/uL Nucleated RBC % (auto) % Polychromasia Hypochromasia Poikilocytosis ESR (0-21) mm/hr Sodium Potassium Chloride Carbon Dioxide Anion Gap BUN Creatinine Est Cr Clr Drug Dosing Est GFR ( Amer) Est GFR (Non-Af Amer) BUN/Creatinine Ratio Glucose POC Glucose (70-99) mg/dl Calcium Phosphorus Magnesium C-Reactive Protein Crossmatch See Detail Diagnostic Findings CXR/KUB IMPRESSION: 1. No acute process of the chest. 2. Nonobstructive bowel gas pattern. PG Care Time/CCT Total # of Minutes Spent Total Time Spent with Patient: Total time spent is greater than 50% in coordination of care (as documented) at patient's floor/unit and/or counseling patient: Coding Level of Care Code 29771 Subseq Hosp Care Lvl 3 Diagnoses Colitis K52.9 Pyelonephritis N12 Anemia D64.9 Anemia type: unspecified type Diarrhea R19.7 Bilateral conjunctivitis H10.9 Internal hemorrhoids K64.8 Thrombocytosis D47.3 S/P section Z98.891 Protein calorie malnutrition E46 Acute blood loss anemia D62 DVT prophylaxis Z29.9 (1) Anemia Anemia type: unspecified type Qualified Code(s): D64.9 - Anemia, unspecified
--- NOTE | 2020-05-19 09:32 | Gastroenterology Progress Note ---
Date of Service May 19, 2020 Assessment & Plan Admission and Anticipated Discharge Date Admission Date: May 16, 2020 Subjective Patient was seen and examined today, doing well, tolerated PO diet. Diarrhea improved. Abdomen is soft. Labs: reviewed WBC up related to Steroids. Recommend: Continue IV Steroids. Stop PPN. Can switch to PO Prednisone tomorrow in anticipation for OP therapy. Results & Data ([facility]) Vital Signs (Past 12 Hours) Vital Signs Temp Pulse Resp BP BP Pulse Ox 05/19/20 07:31 36.7 C 57 L 16 115/75 96 05/18/20 22:57 36.9 C 74 18 135/85 97
[2020-05-19 09:50] LABS: BUN Creatinine Ratio 27.9 (10-20); Calcium 7.4 mg/dl (8.5-10.1); Creatinine Clr Calc Pharmacy 178.5 ml/min; Est GFR (African American) 145.2; Est GFR (Non-African American) 125.3; Potassium 4.4 mmol/L (3.5-5.1)
[2020-05-19 09:54] LABS: C Reactive Protein 4.02 mg/dl (0-0.29); Magnesium 2.1 mg/dl (1.8-2.4); Phosphorus 2.9 mg/dl (2.5-4.9)
--- NOTE | 2020-05-19 12:20 | XRay Report ---
XR chest 1V portable, XR KUB/Abdomen 1 view HISTORY: 39 years-old Female cough acute cough COMPARISON: KUB 05/18/2020, chest radiograph 05/16/2020, CT abdomen and pelvis 05/10/2020. TECHNIQUE: AP view of the chest with KUB radiograph FINDINGS: CHEST: Cardiomediastinal and hilar silhouettes are within normal limits. No pneumothorax, pleural effusion, airspace consolidation or overt pulmonary edema. Bones of the chest appear grossly intact. KUB: Ahaustral fold pattern of the air filled nondilated transverse colon. Nonobstructive bowel gas patter n. No urolith. No pneumatosis or pneumoperitoneum. Probable phleboliths of the pelvis. IMPRESSION: 1. No acute process of the chest. 2. Nonobstructive bowel gas pattern. ACT 112: Negative or not required by law. The above report was generated using voice recognition software. It may contain grammatical, syntax o r spelling errors. Electronically signed by: Issac Ordoñez M.D. 05/19/2020 12:18 PM
[2020-05-19] MEDS: PRENATAL VITAMIN 1 TAB PO SCH (22:03)
[2020-05-19 23:20] VITALS: O2SAT 97
[2020-05-20] MEDS: methylPREDNISolone 20 MG in SYRINGE 0 ML IV SCH ×3 (02:51→13:05)
[2020-05-20] MEDS: ONDANSETRON INJ 2 MG/ML 2 ML VIAL IV SCH ×3 (02:51→13:05)
[2020-05-20 07:28] VITALS: BP 131/87; TEMP 97.9
[2020-05-20 07:28] LABS: Hematocrit (blood only) 33.2 % (37-47); Hemoglobin 9.9 g/dL (12.0-16.0); Mean Corpuscular Hemoglobin 25.4 pg (25-34); Mean Corpuscular Hgb Conc 29.8 g/dL (32-36); Mean Corpuscular Volume 85.3 fL (80-100); Mean Platelet Volume 8.5 fL (7.4-10.4); Nucleated RBC # (auto) 0.25 K/uL (0-0); Nucleated RBC % (auto) 1.2 %; Platelet Count 849 K/uL (130-400); RDW Standard Deviation 55.7 fL (36.4-46.3); Red Blood Count 3.89 M/uL (4.2-5.4); White Blood Count 21.04 K/uL (4.8-10.8)
[2020-05-20 07:45] LABS: BUN Creatinine Ratio 21.3 (10-20); Calcium 8.1 mg/dl (8.5-10.1); Creatinine Clr Calc Pharmacy 149.5 ml/min; Est GFR (African American) 137.3; Est GFR (Non-African American) 118.4; Magnesium 2.3 mg/dl (1.8-2.4); Potassium 4.4 mmol/L (3.5-5.1)
[2020-05-20 07:51] LABS: Phosphorus 3.6 mg/dl (2.5-4.9)
--- NOTE | 2020-05-20 08:03 | Consultation Report ---
DATE OF CONSULTATION: 05/17/2020 REQUESTING PHYSICIAN: Dr. Domingo Rayo. ATTENDING PHYSICIAN: Dr. León Mccloud. CHIEF COMPLAINT AND HISTORY OF PRESENT ILLNESS: This is a 39-year-old female with a past medical history of gestational diabetes, preeclampsia, and is 10 weeks who developed bilateral eye redness and irritation approximately 2 weeks ago. She thought she may have got something in her eyes after changing her baby's diaper and not washing her hands. Her vision was not significantly blurry and she did not have any bad eye pain, but she did have some mild eye discomfort. She bought some [id number] eye drops, which she used for a few days without any significant change in her eye condition, and at one of her followup appointments at her [facility], it was recommended to her that she see her primary medical doctor because of the eye redness and discomfort. Her primary medical doctor prescribed her ofloxacin eye drops for possible conjunctivitis, which she was using 4 times a day in both eyes until the point that she was admitted to the hospital several days ago for colitis with abdominal pain and nausea. Her GI physician is concerned for ulcerative colitis-related uveitis. She has no history of significant eye pain or redness prior to this most recent episode. She does not recall the last time she had an eye exam. She does not wear glasses currently, but states she wore glasses when she was younger. PAST MEDICAL HISTORY: Colitis, anemia, gestational diabetes, preeclampsia. PAST SURGICAL HISTORY: , colonoscopy. MEDICATIONS: vitamins, vitamin C,, ferrous sulfate, ofloxacin eye drops. ALLERGIES: No known drug allergies. FAMILY HISTORY: Hypertension, diabetes, heart disease. SOCIAL HISTORY: She is and a nonsmoker. PHYSICAL EXAMINATION FINDINGS: Her visual acuity was 20/20 bilaterally with subjective blurriness in the right eye. Her intraocular pressures were 28 in the right eye and 32 in the left eye; however, her pressures are likely somewhat inaccurate given the fact that she was significantly squeezing her eyes during the intraocular pressure check. Her pupils are both 4 mm and react down to 3 mm. There is no afferent pupillary defect noted. Her extraocular movements are full in both eyes and her confrontational visual dee are full. Her anterior segment exam is remarkable for trace to 1+ bulbar conjunctival injection bilaterally. She does not have any significant eyelid edema. Her corneas appear clear. Her anterior chamber is deep and formed. Her iris appears normal and her lens is clear. Her dilated exam on the right eye shows a cup to disc ratio of about 0.3 and a normal macula, vessels and peripheral exam. Her left eye similarly shows cup to disc ratio of 0.3 and a normal macula, vessel and peripheral retinal exam. 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 As the patient was started today on prednisolone topical drops, she is currently using them twice daily and I have recommended that the frequency be increased to 1 drop every 2 hours for the next 24 hours and then decreased to 4 times a day. I would recommend that she stay at 4 times daily dosing of the prednisolone eye drops until she is seen next week in our ophthalmology office for a followup visit. Her exam was very difficult and very limited in the hospital setting as I could not get enough magnification to check for anterior chamber inflammatory cell. I agree with her primary team and gastrointestinal doctors continuing her ulcerative colitis workup and I recommend that she follow up in our ophthalmology office in about 5-7 days or 1-2 days after hospital discharge. Thank you very much for your consult on this patient. ARIEL
[2020-05-20 08:07] LABS: ALC (manual) 2.36 K/uL (1.2-3.4); ANC (manual) 15.78 K/uL (1.4-6.5); Lymphocytes # (manual) 2.36 K/uL (1.2-3.4); Lymphocytes % (manual) 11.2 %; Metamyelocytes # (manual) 0.55 K/uL (0-0); Metamyelocytes % (manual) 2.6 %; Monocytes # (manual) 0.36 K/uL (0.11-0.59); Monocytes % (manual) 1.7 %; Myelocytes % (manual) 9.5 %; Neutrophils # (manual) 15.78 K/uL (1.4-6.5); Polychromasia 1+
[2020-05-20] MEDS: LACTOBACILLUS ACIDOPHILUS (FLORANEX) TAB PO SCH ×3 (08:35→17:07)
[2020-05-20] MEDS: FERROUS SULFATE 325 MG TAB PO SCH ×2 (08:36→13:04)
[2020-05-20] MEDS: ASCORBIC ACID 500 MG TAB PO SCH ×2 (08:36→13:04)
[2020-05-20] MEDS: MESALAMINE 800 MG TABCR PO SCH (08:36)
[2020-05-20] MEDS: cephALEXin 500 MG CAP PO SCH ×3 (08:37→17:08)
[2020-05-20] MEDS: BUTT PASTE (ZINC OXIDE 16%) 171 APPLN/57 GM JAR EXT SCH ×3 (08:37→17:09)
[2020-05-20] MEDS: PANTOprazole 40 MG TAB PO SCH (08:37)
[2020-05-20] MEDS: prednisoLONE acetate 1% OP SUSP 5 ML BTL OP SCH ×3 (08:39→17:07)
[2020-05-20] MEDS: INSULIN ASPART 100 UNITS/ML 3 ML PEN SC SCH ×3 (08:41→17:16)
--- NOTE | 2020-05-20 10:52 | Gastroenterology Progress Note ---
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 Sandoval from weekend coverage - Pred 50 mg daily x 4 weeks - then decrease by 5 mg x week Diet as tolerated Follow up with OP GI team to discuss humira Will sign off Admission and Anticipated Discharge Date Admission Date: May 16, 2020 Supervising Physician Co-Signing Physician Notes I have seen and examined the patient with Eneida MACKEY whose note reflects our findings and plan. Steroid taper s as outlined. Humira as an outpatient. F/u in the office arranged. Please call with questions. Subjective Pt was seen and evaluated, chart reviewed. No complaints Tolerating PO intake No nausea/vomiting Review of Systems Constitutional: no fever and no chills Respiratory: no cough and no dyspnea Cardiovascular: no chest pain and no dyspnea Gastrointestinal: no abdominal pain, no coffee ground emesis, no blood in stools and no melena Physical Exam Constitutional: well developed and well nourished; no acute distress Respiratory: normal respiratory effort, lungs clear to auscultation Cardiovascular: Rate/Rhythm: regular rate and regular rhythm Gastrointestinal (Abdomen): Inspection/Auscultation: normal bowel sounds Percussion/Palpation: abdomen soft; abdomen nontender Results & Data ([facility]) Vital Signs (Past 12 Hours) Vital Signs Temp Pulse Resp BP BP Pulse Ox 05/20/20 07:26 36.6 C 62 16 131/87 97 05/19/20 23:20 36.8 C 63 16 125/78 97
[2020-05-20 12:39] LABS: Quantiferon Mitogen-NIL 0.05 IU/mL; Quantiferon NIL 0.02 IU/mL; Quantiferon TB Gold Plus INDETERMINATE (NEGATIVE); Quantiferon TB2-NIL 0.01 IU/mL
--- NOTE | 2020-05-20 13:00 | Electrocardiogram Report ---
Test Reason : Blood Pressure : / mmHG Vent. Rate : 068 BPM Atrial Rate : 068 BPM P-R Int : 140 ms QRS Dur : 082 ms QT Int : 400 ms P-R-T Axes : 027 040 046 degrees QTc Int : 425 ms Normal sinus rhythm Normal ECG When compared with ECG of 10-MAY-2020 11:04, Vent. rate has decreased BY 42 BPM Confirmed by Efrain Purvis ([id number]) on 05/20/2020 1:00:25 PM Referred By: Efrain Tanner Confirmed By:Efrain Purvis
--- NOTE | 2020-05-20 13:13 | Pharmacy Report ---
Glycemic Control Progress Note - Date of Service May 20, 2020 - Scope Glycemic Pharmacist consulted for glycemic control to write orders per [facility] inpatient glycemic control protocol. - Objective Accuchecks BSG(last 24 hours):: 05/19/20 05/19/20 05/20/20 17:12 20:39 06:56 Glucose 130 H POC Glucose 191 H 169 H 05/20/20 05/20/20 08:16 12:13 Glucose POC Glucose 122 H 99 - Recent Pertinent Medications The patient is currently receiving: * Basal insulin: Lantus -- units every -- hours * Correctional Insulin: Novolog Correction per scale ACHS Goal Range: Low 110 mg/dL - High 140 mg/dL Correction Factor: 30 mg/dL/unit * Prandial insulin: Per carb ratio of 1 unit per -- grams CHO consumed - Outpatient Anti-Diabetic Meds gestational diabetes otherwise no medications - Assessment & Plan ASSESSMENT: * See progress note from 05/18/2020 for more background info, in short: * Pt receiving SQ basal bolus insulin regimen for hyperglycemia secondary to steroids. * Patient is currently receiving an average of 7 units of insulin per day * 0 units of basal insulin * 7 units of prandial/correctional insulin * BSGs ranging 144 - 191 mg/dl over the past 24hrs * Changes needed to insulin regimen: * AM Fasting BSG = 122 mg/dl. This is in goal range for patient based on inpatient targets and co-morbidities. Therefore Basal insulin will continue to be held. * Post-prandial BSGs were elevated yesterday while still on PPN. Added a carbohydrate ratio today to try to prevent hyperglycemia. Lunch trended downwards from 122 to 99 mg/dL with a carbohydrate ratio of 10. Therefore will remove. * Total daily dose = <10 units. PLAN FOR INPATIENT GLYCEMIC CONTROL: * Continuing correction factor of 30 mg/dl/unit * Continuing goal range of Low 110 mg/dL - High 140 mg/dL RECOMMENDATIONS FOR DISCHARGE: * Recommend follow-up and screening for T2DM at appropriate intervals. * Of note, continued steroid use may cause elevations of blood sugars as an outpatient. Continue to monitor. Thank you.
--- NOTE | 2020-05-20 15:11 | Discharge Summary ---
Date of Service May 20, 2020 Admission HPI Per Admitting Provider 39-year-old female 9 WKS week post () who presents to the ER at direction of provider at [facility] as she had originally been scheduled for a colonoscopy for GIB/hematochezia this morning and labs were drawn which showed hemoglobin of 8.6 in conjunction with her appearing very pale and was told that she would have to come to the hospital to have it done with that low of a hemoglobin. She states she was initially confused as she had previously opted to undergo outpatient scope instead of staying additional day to have while in the hospital, previously discharged on 05/13 for the same issue. She notes that she has had less bleeding and actually had a normal meal at home prior to starting her colonoscopy prep with miralax/colace/gatorade mixture but then does not that she has had increased blood in her stool as it has become liquid with the prep. States mild abdominal cramping/discomfort but denies need for anything for pain at this time. Slightly cold and states she believes room to be cold. She does endorse increased fatigue but she states that the colonoscopy prep whiped her out. Does endorse hemorrhoidal bleeding but states less clots than when she had initially come in on 05/10/20. Last BM this morning after prep and had slight amount of bleeding. No fevers, chills, chest pain, shortness of breath, palpitations, blurred vision, dysuria, hematuria at this time. Denies any use of alcohol since before . Denies NSAID or ASA use. ER Course: NSR 90-100bpm on monitor. Labs from [facility] with hemoglobin 8.6 earlier today. No further labs or imaging collected at this time. Principal Diagnosis Anemia, ulcerative colitis Discharge Exam Constitutional WD/WN, vitals as above Respiratory normal respiratory effort, lungs clear to auscultation Cardiovascular RRR, no murmur, no edema Gastrointestinal (Abdomen) normal bowel sounds, soft, nontender, no hepatosplenomegaly Musculoskeletal no cyanosis or clubbing, extremities motor strength 5/5 Skin no rashes, warm and dry Neurologic moves all extremities and awake Psychiatric A+Ox3, euthymic affect Discharge Data Allergies Allergy/AdvReac Type Severity Reaction Status Date / Time No Known Allergies Allergy Verified 05/16/20 12:02 Consultations 05/15/20 12:42 ED Decision to Admit Stat 05/15/20 15:31 Consult Gastroenterology Routine 05/17/20 08:00 Consult Ophthalmology Routine Procedures Performed Operation Date: 05/16/20 14:25 Actual Procedures p EGD Biopsy Cytology - Domingo Rayo s Colonoscopy Biopsy Cytology - Domingo Rayo Ordered Studies 05/15/20 14:21 US venous doppler [facility] Stat Hospital Course (1) Colitis: * With anemia. Hemoglobin reported to be 8.6 AM of scheduled outpatient scope and sent to ER for generalized pallor, tachycardia and anemia. * Transfused 1 unit 05/15 for hemoglobin 8.0. H/h stable today at 9.9 GI consulted -- appreciate assistance * EGD with non-bleeding esophageal ulcer, biopsied --> PPI BID x 2 months and repeat EGD 6-8 wks for resolution recommended. ?related to pill per notes * Colonoscopy with congested, erythematous and ulcerated mucosa in entire examined colon, suspicious for ulcerative colitis and confirmed on pathology (and neg for CMV) * CRP, ESR continuing to trend down * KUB without megacolon * Quant gold pending * Hep B serologies without Hep B immunity -- will need addressed prior to TNF * GI added mesalamine 2400mg BID -- continued * Increased methylpred to 20mg Q6H given inflammation -- discharge with 50 mg daily prednisone for a month and then taper by 5 mg a week after that Diet advanced GI considering addition of Humira given severity of UC not particularly responsive to mesalamine --> prior auth from clinic to arrange OP therapy (2) Pyelonephritis: * Likely contributed to nausea, temps on admission. BCx NGTD * UA with trace blood, positive nitrite, 2+ leuk est, >30WBC, 5-10rbc, >30hyaline case, 4+ bacteria, 1-5 WBC casts * Urine culture with klebsiella pneumonia, pansensitive except to nitrofurantoin * Ceftriaxone IV (on day 4 of therapy) --> Keflex to begin 05/20 - will give 10 days total (3) Anemia: * See above -- recently started on iron supplementation with vitamin C for iron def anemia, to be continued * H/h stable (4) Diarrhea: * Improved from discharge until recent colonoscopy prep --> continue zinc oxide for irritation * Continue lactobacillus (5) Bilateral conjunctivitis: * discontinued ofloxacin op --> utilizing prednisolone op as likely uveitis given likely UC * Ophthalmology consulted while inpatient per GI -- increased prednisolone to QID and will need f/u at discharge for slit lamp examination in the office (6) Internal hemorrhoids: * Hydrocortisone suppositories prn (7) Thrombocytosis: * Repeating labs as above -- likely reactive given above * Continue to trend (8) S/P section: * 9 weeks post-. Did have hx pre-eclampsia with but no s/sx HELLP * Per her previous discussion with GI -- able to breastfeed on Humira - asked that she check with her guide dog instructor before starting and to go over her new medication regimen with guide dog instructor before starting back breast feeding * Watch for diarrhea in with mesalamine (9) Protein calorie malnutrition: * secondary to inflammatory bowel * choir singer consulted for initiation of PPN while inpatient given nutritional status -- discontinued 05/19 (10) Acute blood loss anemia: * secondary to #1 (11) Hyperglycemia: Insulin while inpatient and especially with ppn Discussed with glycemic pharmacist - Patient may be resuming breast feedin gand will be pumping at home - will hold off on sending home with insulin. Instructed to check bsgs ac & hs and adhere to her diabetic diet which she had maintained while . (12) DVT prophylaxis: * Ambulation encouraged * SCDs * No chemoprophylaxis in setting of active bleeding Discussed with patient that she should see her guide dog instructor before resuming given the extensive steroid course she will be on. She can continue with formula for now. Total Time Total Time Spent Total Time Spent (In Minutes): greater than 30 minutes Discharge Plan Discharge Items Patient Disposition: Home - Self-Care Reason For Visit: ANEMIA,GIB Discharge Diagnosis: Anemia, Gastrointestinal bleed Activity: Resume your previous activity Activity Comment: gradually as tolerated Non-emergency contact: Primary Care Provider Call non-emergency contact if: you have any medication questions, your symptoms worsen and you have a fever Follow-up/Referrals: Odilia Loja CRNP [Primary Care Provider] - (follow up in one wee, ) Natalio Jaramillo [Physician] - Brendon Boston DO [Physician] - (Follow up one week ) Diet: Regular Diet Comment: advance as tolerated Addtl Attending Provider Instructions: (1) Colitis: You received 1 unit of blood this admission and your blood count has been stable since then. Your primary care provider may want to recheck your hemoglobin level at your next appointment which should be in about a week. You had an endoscopy performed to look into your stomach. A non bleeding ulcer was found in your esophagus which was biopsied. Please follow up with gastroenterology as to the results of this biopsy. You will need to stay on pantoprazole for 2 months twice per day and have a repeat endoscopy in 6-8 weeks. You had a colonoscopy performed as well which showed ulceration in the colon consistent with ulcerative colitis You will continue mesalamine 2400mg BID, You will continue with a steroid taper - Prednisone 50 mg daily x 4 weeks - A second prescription for prednisone was sent to start after the first month of prednisone is finished. This prescription is the taper which will have you d ecrease prednisone by 5 mg every 7 days starting with 45 mg. Please call your guide dog instructor concerning breast feeding and your new medications as well as Humira before resuming breast feeding. You should continue formula for now and can pump and discard your milk in the mean time to maintain your supply You will also need to discuss whether or not you need a hepatitis B vaccine before receiving this medication. Your test to follow up on your tuberculosis test before starting. (2) Urinary tract infection: You will need 5 and a half more days of antibiotic therapy for a total of 10 days of therapy. You will go home with a prescription for cephalexin. (3) Anemia: Continue iron supplementation (4) Uveitis: Continue prednisolone drops in both eyes four times per day until you follow up with ophthalmology. You should see Dr. Boston's office in a week You will need a slit lamp examination in the office at your follow up (5) Internal hemorrhoids: Continue Hydrocortisone suppositories as needed (6) Thrombocytosis (elevated platelets) This is likely a reaction to the ulcerative colitis as platelets can become elevated when the body is dealing with a lot of inflammation. Please discuss with your primary care provider to have this rechecked at your next appointment. (7) Hyperglycemia (elevated blood sugar) Please check your blood sugars before meals and before bedtime. Please let your primary care provider know if your blood sugars are running above 140 consistently or if they are ever over 250. Try to eat a carbohydrate moderate diet and avoid processed sugars and flours (white things like white bread, white rice, sweets). Try to eat complex carbohydrates like whole grains. Pending Studies at Discharge: No Stand-Alone Forms: My [facility], Smoking Cessation Medications and DC Order Prescriptions: New pantoprazole 40 mg Tablet,Delayed Release (Dr/Ec) 40 mg PO BID Qty: 60 RF: 1 prednisolone acetate 1 % Drops,Suspension 1 drp ophthalmic (eye) QID Qty: 1 RF: 0 cephalexin 500 mg Capsule 500 mg PO QID Qty: 22 RF: 0 prednisone 50 mg tablet 50 mg PO DAILY 30 Days Qty: 30 RF: 0 prednisone 10 mg tablet 10 mg PO DAILY Qty: 427 RF: 0 mesalamine 1.2 gram tablet,delayed release (DR/EC) 2.4 g PO BID 30 Days Qty: 120 RF: 1 Continued 28-800 mg-mcg Tablet 1 tab PO QPM RF: 0 hydrocortisone acetate [Anucort-HC] 25 mg Suppository 25 mg ND BID PRN (Reason: hemorrhoids) Qty: 12 RF: 0 ferrous sulfate 325 mg (65 mg iron) Tablet,Delayed Release (Dr/Ec) 325 mg PO TID Qty: 90 RF: 0 Lactobacillus acidoph-L.bulgar [Floranex] 1 million cell Tablet 4 tab PO QIDM 30 Days Qty: 360 RF: 0 ascorbic acid (vitamin C) [Vitamin C] 500 mg Tablet 500 mg PO TID Qty: 90 RF: 0 Boudreauxs Butt Paste 16 % Ointment 1 applic EXT QID Qty: 2016 RF: 0 Discontinued ofloxacin 0.3 % Drops 2 drp OPB QID 14 Days Qty: 10 RF: 0 No Action (DME) breast pump Device See Rx Instructions .ROUTE .MEDSUPPLY Qty: 1 RF: 0 Discharge Orders: Discharge Order (Routine); Ordered 05/20/20 Ordered By: Rekha Jones Admission Data Admit Date/Time: 05/16/20 15:43 Attending Provider: Gilda Villatoro Admit Provider: León Mccloud Primary Care Provider: Odilia Loja Other Providers: León Mccloud ; Natalio Jaramillo ; Brendon Boston Other Interventions: Discharge Summary Assessment (RN) Last Done: 05/20/20 16:48 Supervising Physician Co-Signing Physician Notes Attending note: patient seen and examined with Rekha MACKEY. I agree with her discharge summary. I personally reviewed the labs and imaging findings. patient feeling better on steroids, less abdominal pain, less diarrhea no fever or chills, responded well to antibiotics - Colitis, suspected ulcerative colitis discharge on Prednisone 50mg daily with very slow taper, Mesalamine may consider Humira in near future follow up closely with Laurent DAMON as they will direct her care - UTI, possible pyelonephritis? responded well to IV antibiotics, culture with sensitive Klebsiella discharge home on Keflex for 10 day course for full details see the above d/c summary Coding Level of Care Code D/C Day Management >30 mins Diagnoses Colitis K52.9 Pyelonephritis N12 Anemia D64.9 Anemia type: unspecified type Diarrhea R19.7 Bilateral conjunctivitis H10.9 Internal hemorrhoids K64.8 Thrombocytosis D47.3 S/P section Z98.891 Protein calorie malnutrition E46 Acute blood loss anemia D62 Hyperglycemia R73.9 DVT prophylaxis Z29.9
[2020-05-20 16:49] VITALS: PULSE 100
== END 2020-05-20 18:25 | disposition home or self-care (01) | DRG 386 ==
LOC: ED 10:40 → 3W 10:40 → SUATTDRO 13:14 → 3W 14:17